=== PATIENT | male | born 1940 | race Caucasian/White ===

== ENCOUNTER 2020-12-20 11:48 | Emergency (ER) | payer MEDICARE, SELFPAY ==
--- NOTE | ~2020-12-20 | CT_ITS ---
EXAMINATION: CT abdomen pelvis wo con CLINICAL INFORMATION: Reason for Exam epigastric pain. gallstones? SBO? COMPARISON: No prior CT available for comparison. TECHNIQUE: Multidetector volumetric imaging was performed from the superior aspect of the liver through the pubic symphysis 100 mL of Omnipaque 300 injected Sagittal and coronal reformatted images were obtained on the technologist's workstation. This CT examination was performed using dose optimization techniques as appropriate, variously including the following: *Automated exposure control *Adjustment of mA and/or kV according to patient size (this includes techniques or standardized protocols for targeted exams where dose is matched to indication/reason for exam; i.e. extremities or head) *Use of iterative reconstruction technique DLP: 1343 mGy-cm FINDINGS: LOWER THORAX: There are emphysematous changes at lung bases, diffuse bronchiectasis and subpleural honeycombing suggesting interstitial pneumonitis, pulmonary fibrosis. HEPATOBILIARY: No focal hepatic lesions. No biliary ductal dilatation. GALLBLADDER: There is a large gallstone. SPLEEN: Spleen is normal in size. PANCREAS: No focal mass or ductal dilatation. STOMACH AND GASTROINTESTINAL TRACT: Stomach is dilated, fluid and contrast mixture in the lumen. Excess amount of stool in the colon suggesting constipation. Heavy sigmoid diverticulosis without evidence of acute diverticulitis. ADRENALS: No adrenal nodules. KIDNEYS/URETERS: No hydronephrosis, stones or solid mass lesions. URINARY BLADDER: Partially decompressed. PELVIC VISCERA: Unremarkable PERITONEUM: No free air or fluid. LYMPH NODES: No lymphadenopathy. VASCULAR:Abdominal aorta normal in size, no aneurysm found. BONES, ABDOMINAL WALL AND SOFT TISSUES: Age-appropriate changes of the spine and skeletal system, no destructive osteolytic or osteosclerotic bone lesion found CT/CT abdomen pelvis wo con IMPRESSION: 1. Stomach is markedly dilated filled with fluid, fluid and contrast. Uncertain etiology, difficult to evaluate due to lack of IV contrast and paucity of intraperitoneal fat, If patient remain symptomatic, consider correlation with follow-up upper GI study. Rule out gastric outflow obstruction. 2. Excess amount of stool in the colon especially cecum suggesting constipation. 3. Diverticulosis without evidence of acute diverticulitis.
[2020-12-20 12:00] VITALS: BP 127/81; PULSE 77; O2SAT 99
[2020-12-20 12:04] VITALS: BP 112/56; PULSE 80; RESP 18; TEMP 36.6; O2SAT 98; BMI 29.9
--- NOTE | 2020-12-20 12:16 | ECG_ITS ---
Test Reason : ABDOMINAL PAIN Blood Pressure : / mmHG Vent. Rate : 073 BPM Atrial Rate : 073 BPM P-R Int : 162 ms QRS Dur : 086 ms QT Int : 394 ms P-R-T Axes : 005 -22 -05 degrees QTc Int : 434 ms Normal sinus rhythm Normal ECG No previous ECGs available Referred By: Fortino Acevedo Electronically Signed By:KEITH THOMPSON
--- NOTE | 2020-12-20 12:39 | ED.ABDPAIN ---
HPI - Abdominal Pain General Chief Complaint: Abdominal Pain Stated Complaint: abd pain, n/v Time Seen by Provider: 12/20/20 12:16 Source: patient Mode of arrival: ambulatory Limitations: no limitations History of Present Illness HPI narrative: Patient presents to ED for epigastric pain described as acid burning sensation going up to the throat for the past 5 months but has been consistent for the past 2 weeks. Patient states nausea. Patient states no fever, chills, dysuria, hematuria, flank pain, or diarrhea. Patient had a normal bowel movement yesterday. Patient states history of stomach cancer and stomach ulcers. Patient states history of COPD and high blood pressure. Patient is oxygen dependent. Patient presently not receiving any treatment for stomach cancer. MD elicited complaint: abdominal pain Related Data Previous Rx's Medication Instructions Recorded famotidine 20 mg tablet (Pepcid) 20 mg PO BID #20 tab 12/20/20 Allergies Allergy/AdvReac Type Severity Reaction Status Date / Time No Known Allergies Allergy Verified 12/20/20 12:12 Review of Systems Review of Systems Yes all other systems are reviewed and are negative Constitutional: Reports as per HPI, Reports no additional constitutional complaints and Reports anorexia Eyes: Reports as per HPI and Reports no additional eye complaints Reports system reviewed and no additional complaints, except as documented and Reports as per HPI Cardiovascular: Reports as per HPI and Reports no additional cardiovascular complaints Respiratory: Reports as per HPI and Reports no additional respiratory complaints Gastrointestinal: Reports as per HPI, Reports no additional gastrointestinal complaints, Reports abdominal pain (Epigastric), Reports heartburn and Reports nausea Genitourinary: Reports no additional male genitourinary complaints and Reports as per HPI Reports system reviewed and no additional complaints, except as documented and Reports as per HPI Psychiatric: Reports no additional psychiatric complaints and Reports as per HPI Physical Exam Vital Signs: Vital Signs: Last Vital Signs Temp 97.9 F 12/20/20 13:00 Pulse 75 12/20/20 13:00 Resp 15 12/20/20 13:00 BP 104/60 12/20/20 13:00 Pulse Ox 98 12/20/20 12:04 Oxygen Flow Rate 1 12/20/20 12:04 Body Mass Index 29.9 Const: General: cooperative, healthy appearing, comfortable, no acute distress, well developed, alert, awake and Physically active Orientation/consciousness: patient oriented x3 HENMT: Head: Yes normal to inspection, Yes No palpable skull fracture present, Yes normocephalic and Yes atraumatic Eyes: General: appearance normal, both eyes and all related structures Neck: Neck: Yes normal visual inspection, Yes full ROM, Yes no lymphadenopathy, Yes no meningeal signs, Yes trachea midline, Yes supple and No tender Chest: Chest palpation & inspection: normal inspection of the chest and normal palpation of entire chest wall Resp: Effort & Inspection: normal respiratory effort and able to speak in complete sentences Auscultation: clear to auscultation bilaterally Cardio: Jugular venous distension: no JVD Heart sounds: S1 normal heart sound present and S2 normal heart sound present GI: Inspection: Yes normal to inspection and No abdominal wall ecchymosis Palpation (GI): Soft to palpation, not firm, nontender and no guarding : General: No CVA tenderness and Yes no CVA tenderness Back/Spine/Pelvis: Back: no CVA tenderness, No CVA tenderness and No back tenderness Skin: General skin exam: no rashes or lesions noted and elasticity normal Neuro: General: patient oriented x3, gait normal, tone normal and no meningeal signs Cranial nerves: Yes CN's II-XII intact bilaterally Extrem: General: Yes normal to inspection and Yes full ROM Psych: Appearance: grossly normal, well kempt and not disheveled Course Course Course Narrative: History physical exam indicate GERD will do cardiac evaluation GI cocktail and abdominal CT scan to rule out obstruction gallstones. Reevaluation(s) Reevaluation #1: EKG negatives for STEMI. Troponin after 2 weeks of acid burning epigastric pain came back negative. CT scan of abdomen negative for small bowel obstruction. CT scan of abdomen showed possible gastric outlet obstruction. Case discussed with surgeon Dr. Carrasco who states patient can be discharged. Patient passed p.o. challenge and is not having any vomiting. Patient will be referred to Gastroenterology as outpatient as recommended by Dr. Carrasco. Patient given magnesium citrate for constipation. UA negative for UTI. Time: 16:19 MDM - Abdominal Pain MDM Narrative Medical decision making narrative: GERD. Constipation. Gastric outlet obstruction. Lab Data Result diagrams: 12/20/20 12:53 12/20/20 12:53 Labs: Lab Results 12/20/20 12/20/20 12/20/20 Range/Units 12:53 12:53 12:53 WBC 8.7 (4.8-10.8) X10*3/uL RBC 3.42 L (4.60-5.80) X10*6/uL Hgb 9.8 L (14.0-18.0) g/dl Hct 30.7 L (42-52) % MCV 89.8 (80-98) fL MCH 28.7 (27.0-33.0) pg MCHC 31.9 (31.0-36.0) g/dl RDW 12.7 (11.0-16.0) % Plt Count 314 (160-400) X10*3/uL MPV 9.6 (9.4-12.4) fL Immature Gran % (Auto) 0.2 (0.0-0.4) % Neut % (Auto) 63.8 (45-73) % Lymph % (Auto) 16.2 L (20-40) % Crawford % (Auto) 10.1 (2-11) % Eos % (Auto) 9.2 H (0-4) % Baso % (Auto) 0.5 (0-2) % Lymph # (Auto) 1.4 (1.2-4.9) X10*3/uL Crawford # (Auto) 0.9 (0.1-1.2) X10*3/uL Eos # (Auto) 0.8 H (0.0-0.4) X10*3/uL Baso # (Auto) 0.0 (0.0-0.2) X10*3/uL Abs Immat Gran (auto) 0.02 (0.00-0.03) X10*3/uL Absolute Neuts (auto) 5.5 (2.0-8.3) X10*3/uL Absolute Nucleated RBC 0.000 (0.0-0.012) X10*3/uL Nucleated RBC % (auto) 0.0 (0.0-0.2) /100WBC PT (9.9-13.0) SEC INR (0.9-1.1) APTT (24.1-38.0) SEC Sodium 139 (135-145) mmol/L Potassium 4.9 (3.3-5.1) mmol/L Chloride 106 (96-108) mmol/L Carbon Dioxide 28 (22-29) mmol/L Anion Gap 10 L (12-20) BUN 20 H (9-16) mg/dL Creatinine 0.96 (0.5-1.4) mg/dL Estim Creat Clear Calc 58.3 Estimated GFR > 60 Random Glucose 70 (60-115) mg/dL Calcium 9.3 (8.4-10.2) mg/dL Total Bilirubin 0.2 (0.0-1.0) mg/dL Direct Bilirubin < 0.2 (0.0-0.5) mg/dL AST 26 (5-37) U/L ALT 29 (0-40) U/L Alkaline Phosphatase 82 (39-117) U/L Troponin I High Sens < 3.5 (<3.5-35.0) ng/L Total Protein 7.1 (6.5-8.0) g/dL Albumin 4.0 (3.5-5.0) g/dL Lipase 40 (8-78) U/L Urine Color Urine Appearance Urine pH (5.0-8.0) Ur Specific [place] (1.005-1.025) Urine Protein (NEG-TRACE) MG/DL Urine Glucose (UA) (NEG) MG/DL Urine Ketones (NEG) MG/DL Urine Blood (NEG) Urine Nitrite (NEG) Ur Leukocyte Esterase (NEG) 12/20/20 12/20/20 Range/Units 12:53 15:44 WBC (4.8-10.8) X10*3/uL RBC (4.60-5.80) X10*6/uL Hgb (14.0-18.0) g/dl Hct (42-52) % MCV (80-98) fL MCH (27.0-33.0) pg MCHC (31.0-36.0) g/dl RDW (11.0-16.0) % Plt Count (160-400) X10*3/uL MPV (9.4-12.4) fL Immature Gran % (Auto) (0.0-0.4) % Neut % (Auto) (45-73) % Lymph % (Auto) (20-40) % Crawford % (Auto) (2-11) % Eos % (Auto) (0-4) % Baso % (Auto) (0-2) % Lymph # (Auto) (1.2-4.9) X10*3/uL Crawford # (Auto) (0.1-1.2) X10*3/uL Eos # (Auto) (0.0-0.4) X10*3/uL Baso # (Auto) (0.0-0.2) X10*3/uL Abs Immat Gran (auto) (0.00-0.03) X10*3/uL Absolute Neuts (auto) (2.0-8.3) X10*3/uL Absolute Nucleated RBC (0.0-0.012) X10*3/uL Nucleated RBC % (auto) (0.0-0.2) /100WBC PT 11.4 (9.9-13.0) SEC INR 1.0 (0.9-1.1) APTT 34.6 (24.1-38.0) SEC Sodium (135-145) mmol/L Potassium (3.3-5.1) mmol/L Chloride (96-108) mmol/L Carbon Dioxide (22-29) mmol/L Anion Gap (12-20) BUN (9-16) mg/dL Creatinine (0.5-1.4) mg/dL Estim Creat Clear Calc Estimated GFR Random Glucose (60-115) mg/dL Calcium (8.4-10.2) mg/dL Total Bilirubin (0.0-1.0) mg/dL Direct Bilirubin (0.0-0.5) mg/dL AST (5-37) U/L ALT (0-40) U/L Alkaline Phosphatase (39-117) U/L Troponin I High Sens (<3.5-35.0) ng/L Total Protein (6.5-8.0) g/dL Albumin (3.5-5.0) g/dL Lipase (8-78) U/L Urine Color YELLOW Urine Appearance CLEAR Urine pH 6.0 (5.0-8.0) Ur Specific [place] 1.010 (1.005-1.025) Urine Protein NEG (NEG-TRACE) MG/DL Urine Glucose (UA) NEG (NEG) MG/DL Urine Ketones 5 (NEG) MG/DL Urine Blood NEG (NEG) Urine Nitrite NEG (NEG) Ur Leukocyte Esterase NEG (NEG) ECG Data Interpretation: Normal sinus rhythm. Normal EKG. Sickle is 73. Pr interval 162. QRS 86. QTC 434. Negative STEMI Discharge Plan Discharge Clinical Impression: Gastroesophageal reflux disease, Constipation, Gastric outlet obstruction Patient Disposition: Home, Self-Care Instructions: Constipation (ED), Gastroesophageal Reflux Disease (ED) Additional Instructions: Macias electrocardiograma y an?lisis de obdulia resultaron negativos para un ataque card?aco. Macias tomograf?a computarizada abdominal muestra ricco obstrucci?n de la salida g?strica. Macias tomograf?a computarizada tambi?n muestra estre?imiento. Es necesario realizar un seguimiento con gastroenter?logo samuel paciente ambulatorio. Regrese al servicio de urgencias inmediatamente si tiene v?mitos con obdulia, sangrado rectal, debilidad, mareos, dolor de pecho, dificultad para respirar, incapacidad para tolerar alimentos s?lidos / l?quidos, disuria, hematuria, dolor en el costado o cualquier otro s?ntoma preocupante. Prescriptions: New famotidine [Pepcid] 20 mg tablet 20 mg PO BID Qty: 20 RF: 0 Referrals: Adrian Quiles [Physician] - 2 days (Gastric outlet obstruction. GERD) Interventions: ED Discharge Assessment Last Done: 12/20/20 17:41 Discharge Date/Time: 12/20/20 17:42 Print Language: Guyanese [facility] Past Medical History Medical History (Updated 12/20/20 @ 16:22 by KAMALA Kinsey) COPD (chronic obstructive pulmonary disease) Depressed Diabetes Glaucoma HTN (hypertension) Stomach cancer Social History Social History Advance Directives: Yes Advance Directives on File: Yes Advance Directives Date on File: 12/20/20
[2020-12-20 12:58] LABS: MANUAL DIFF FLAG NO
[2020-12-20 13:00] VITALS: BP 104/60; PULSE 75; RESP 15; TEMP 36.6
[2020-12-20 13:07] LABS: Basophils Percent Auto 0.5 % (0-2); Eosinophils Absolute Auto 0.8 X10*3/uL (0.0-0.4); Eosinophils Percent Auto 9.2 % (0-4); Hematocrit 30.7 % (42-52); Hemoglobin 9.8 g/dl (14.0-18.0); Imm Gran Abs Auto 0.02 X10*3/uL (0.00-0.03); Imm Gran Pct Auto 0.2 % (0.0-0.4); Lymphocytes Absolute Auto 1.4 X10*3/uL (1.2-4.9); Lymphocytes Percent Auto 16.2 % (20-40); Mean Corpuscular HGB Conc 31.9 g/dl (31.0-36.0); Mean Corpuscular Hemoglobin 28.7 pg (27.0-33.0); Mean Corpuscular Volume 89.8 fL (80-98); Mean Platelet Volume 9.6 fL (9.4-12.4); Monocytes Absolute Auto 0.9 X10*3/uL (0.1-1.2); Monocytes Percent Auto 10.1 % (2-11); Neutrophils Absolute Auto 5.5 X10*3/uL (2.0-8.3); Neutrophils Percent Auto 63.8 % (45-73); Platelet Count 314 X10*3/uL (160-400); Red Blood Count 3.42 X10*6/uL (4.60-5.80); Red Cell Distribution Width 12.7 % (11.0-16.0); White Blood Count 8.7 X10*3/uL (4.8-10.8)
[2020-12-20] MEDS: PHENobarb/Hyoscy/Atropine/Scop 10 ML ELIXIR PO (13:12)
[2020-12-20] MEDS: Famotidine 20 MG TABLET PO (13:13)
[2020-12-20] MEDS: Lidocaine HCl Viscous 2 % 15 ML SOLUTION MUCOUS MEM (13:13)
[2020-12-20 13:14] LABS: Prothrombin Time 11.4 SEC (9.9-13.0)
[2020-12-20] MEDS: Magnesium Hydrox/Alum Hydrox 30 ML ORAL.SUSP PO (13:14)
[2020-12-20] MEDS: Sucralfate Oral Suspension 1 GM/10 ML ORAL.SUSP PO (13:14)
[2020-12-20 13:16] LABS: Partial Thromboplastin Time 34.6 SEC (24.1-38.0)
[2020-12-20 13:23] LABS: Troponin-I High Sensitivity < 3.5 ng/L (<3.5-35.0)
[2020-12-20 13:29] LABS: Alanine Aminotransferase 29 U/L (0-40); Alkaline Phosphatase 82 U/L (39-117); Anion Gap 10 (12-20); Aspartate Amino Transferase 26 U/L (5-37); Bilirubin Direct < 0.2 mg/dL (0.0-0.5); Bilirubin Total 0.2 mg/dL (0.0-1.0); Blood Urea Nitrogen 20 mg/dL (9-16); Calcium 9.3 mg/dL (8.4-10.2); Carbon Dioxide 28 mmol/L (22-29); Chloride 106 mmol/L (96-108); Creatinine Clr Calc Pharmacy 58.3; Estimated Glomerular Filt Rate > 60; Glucose Random 70 mg/dL (60-115); Lipase 40 U/L (8-78); Potassium 4.9 mmol/L (3.3-5.1); Sodium 139 mmol/L (135-145); Total Protein 7.1 g/dL (6.5-8.0)
[2020-12-20 15:50] LABS: Glucose Urine UA NEG (NEG); Leukocyte Esterase Urine NEG (NEG); Nitrite Urine NEG (NEG); Urine Blood NEG (NEG); Urine Ketones 5 MG/DL (NEG); Urine Protein NEG (NEG-TRACE)
[2020-12-20 15:54] LABS: Appearance Urine CLEAR; Color Urine YELLOW
== END 2020-12-20 17:42 | disposition home or self-care (01) ==
PROVIDERS: Physician Assistant; Emergency Provider Emergency Medicine; PCP Internal Medicine
DX: K21.9 Gastro-esophageal reflux disease without esophagitis (principal); K31.1 Adult hypertrophic pyloric stenosis; K59.00 Constipation, unspecified; R10.13 Epigastric pain; Z79.899 Other long term (current) drug therapy
CPT/HCPCS: 36415; 74176; 80053; 81003; 82248; 83690; 84484; 85025; 85610; 85730; 93005; 99284

== ENCOUNTER 2020-12-31 10:03 | Emergency (ER) | payer MEDICARE, SELFPAY ==
[2020-12-31 10:14] VITALS: BP 120/79; BP 135/68; PULSE 90; PULSE 91; RESP 18; TEMP 37.1; O2SAT 100; O2SAT 97; BMI 25.8
--- NOTE | 2020-12-31 10:24 | ECG_ITS ---
Test Reason : AB PAIN Blood Pressure : / mmHG Vent. Rate : 081 BPM Atrial Rate : 081 BPM P-R Int : 166 ms QRS Dur : 094 ms QT Int : 392 ms P-R-T Axes : 059 -07 016 degrees QTc Int : 455 ms Normal sinus rhythm Normal ECG When compared with ECG of 20-DEC-2020 12:58, Nonspecific T wave abnormality has replaced inverted T waves in Inferior leads Referred By: Renae Diane Electronically Signed By:KEITH THOMPSON
[2020-12-31] MEDS: 0.9 % Sodium Chloride 1,000 ML 999 ML IVCONT (10:28)
[2020-12-31 10:42] LABS: MANUAL DIFF FLAG NO
[2020-12-31 10:46] LABS: Basophils Percent Auto 0.4 % (0-2); Eosinophils Absolute Auto 0.6 X10*3/uL (0.0-0.4); Eosinophils Percent Auto 7.2 % (0-4); Hematocrit 30.2 % (42-52); Hemoglobin 9.6 g/dl (14.0-18.0); Imm Gran Abs Auto 0.04 X10*3/uL (0.00-0.03); Imm Gran Pct Auto 0.4 % (0.0-0.4); Lymphocytes Absolute Auto 1.6 X10*3/uL (1.2-4.9); Lymphocytes Percent Auto 17.7 % (20-40); Mean Corpuscular HGB Conc 31.8 g/dl (31.0-36.0); Mean Corpuscular Hemoglobin 28.2 pg (27.0-33.0); Mean Corpuscular Volume 88.6 fL (80-98); Mean Platelet Volume 9.5 fL (9.4-12.4); Monocytes Absolute Auto 1.1 X10*3/uL (0.1-1.2); Monocytes Percent Auto 12.7 % (2-11); Neutrophils Absolute Auto 5.5 X10*3/uL (2.0-8.3); Neutrophils Percent Auto 61.6 % (45-73); Platelet Count 347 X10*3/uL (160-400); Red Blood Count 3.41 X10*6/uL (4.60-5.80); Red Cell Distribution Width 13.2 % (11.0-16.0); White Blood Count 8.9 X10*3/uL (4.8-10.8)
--- NOTE | 2020-12-31 10:54 | ED_ITS ---
HPI - Abdominal Pain General Chief Complaint: Abdominal Pain Stated Complaint: DIFFICULTY BREATHING/ GI ISSUE Time Seen by Provider: 12/31/20 10:08 Source: patient and EMS Mode of arrival: EMS Limitations: no limitations History of Present Illness HPI narrative: Patient comes to the emergency room complaining of vomiting and diarrhea. Patient states that he is on multiple medications, which give some a lot of burning sensation in his abdomen. Patient is coming from a prison. Patient has been refusing his medications because of the above-mentioned side effects. Patient states that his diarrhea is now black, states they have been giving him Pepto-Bismol. Patient states that he has history low buttock ulcer in the past. Patient denies fever or chills Related Data Previous Rx's Medication Instructions Recorded famotidine 20 mg tablet (Pepcid) 20 mg PO BID #20 tab 12/20/20 ondansetron HCl 4 mg tablet 4 mg PO Q6H PRN #14 tab 12/31/20 (Zofran) Allergies Allergy/AdvReac Type Severity Reaction Status Date / Time No Known Allergies Allergy Verified 12/20/20 12:12 Review of Systems Review of Systems Constitutional : No Weight loss, No Fever, No Chills, No Night Sweats, No Fatigue, No Malaise ENT/Mouth : No Hearing loss, No Ear Pain, No Nasal Congestion, No Sinus Pain, No Hoarseness, No sore throat, No Rhinorrhea, No Swallowing Difficulty Eyes: No Eye Pain, No Swelling, No Redness, No Foreign Body, No Discharge, No Vision Changes Cardiovascular : No Chest Pain, No SOB, No Dyspnea on Exertion, No Orthopnea, No Edema, No Palpitations Respiratory : No Cough, No Sputum, No Wheezing, No Smoke Exposure, No Dyspnea Gastrointestinal complaining of nausea, vomiting, diarrhea, constipation as well, black stool Genitourinary : no irregular bleeding, No Dysuria, No Urinary Frequency, No Hematuria, No Urinary Incontinence, No Urgency, No Flank Pain, No Urinary Flow Changes, No Hesitancy Musculoskeletal : No joint pain, No Myalgias, No Joint Swelling Skin : No Skin Lesions, No rash Neuro : No Weakness, No Numbness, No Paresthesias, No Loss of Consciousness, No Dizziness, No Headache Psych : No Anxiety/Panic, No Depression, No SI/HI/AH/VH, No Social Issues, Heme/Lymph: No Bruising, No Bleeding,No Lymphadenopathy Endocrine : No Polyuria, No Polydipsia, No Temperature Intolerance Physical Exam Vital Signs: Vital Signs: Last Vital Signs Temp 98.2 F 12/31/20 16:00 Pulse 73 12/31/20 16:00 Resp 16 12/31/20 16:00 BP 130/64 12/31/20 16:00 Pulse Ox 100 12/31/20 16:00 Body Mass Index 25.8 Const: Other: Appearance: Alert. Oriented X3. No acute distress. Eyes: Pupils equal, round and reactive to light. ENT: Pharynx normal. Neck: Normal inspection. Neck supple. No lymph nodes noted. No crepitus CVS: Normal heart rate and rhythm. Pulses normal. Normal S1 and S2 Respiratory: No respiratory distress. On home 2 L, bilateral mild wheezing Abdomen: Soft and nontender. No rigidity. No distention. Digital rectal exam shows black stool Skin: Skin warm and dry. Normal skin color. Normal skin turgor. Extremities: No lower extremity edema. No Lacerations. No Rash Neuro: Oriented X 3. No motor deficit. No sensory deficit. Moving all extermities. No slurred speech. Course Course Course Narrative: Patient has not vomited or had any diarrhea in the emergency room. Patient is likely having side effects from his medication. Patient ready for discharge. Patient was giving a dose of Zofran to hopefully help him with his symptoms prior to ingestion. MDM - Abdominal Pain Lab Data Result diagrams: 12/31/20 10:26 12/31/20 10:26 Labs: Lab Results 12/31/20 12/31/20 12/31/20 Range/Units 10:26 10:26 10:26 WBC 8.9 (4.8-10.8) X10*3/uL RBC 3.41 L (4.60-5.80) X10*6/uL Hgb 9.6 L (14.0-18.0) g/dl Hct 30.2 L (42-52) % MCV 88.6 (80-98) fL MCH 28.2 (27.0-33.0) pg MCHC 31.8 (31.0-36.0) g/dl RDW 13.2 (11.0-16.0) % Plt Count 347 (160-400) X10*3/uL MPV 9.5 (9.4-12.4) fL Immature Gran % (Auto) 0.4 (0.0-0.4) % Neut % (Auto) 61.6 (45-73) % Lymph % (Auto) 17.7 L (20-40) % Shelby % (Auto) 12.7 H (2-11) % Eos % (Auto) 7.2 H (0-4) % Baso % (Auto) 0.4 (0-2) % Lymph # (Auto) 1.6 (1.2-4.9) X10*3/uL Shelby # (Auto) 1.1 (0.1-1.2) X10*3/uL Eos # (Auto) 0.6 H (0.0-0.4) X10*3/uL Baso # (Auto) 0.0 (0.0-0.2) X10*3/uL Abs Immat Gran (auto) 0.04 H (0.00-0.03) X10*3/uL Absolute Neuts (auto) 5.5 (2.0-8.3) X10*3/uL Absolute Nucleated RBC 0.000 (0.0-0.012) X10*3/uL Nucleated RBC % (auto) 0.0 (0.0-0.2) /100WBC PT 11.9 (9.9-13.0) SEC INR 1.0 (0.9-1.1) Sodium 137 (135-145) mmol/L Potassium 4.6 (3.3-5.1) mmol/L Chloride 101 (96-108) mmol/L Carbon Dioxide 28 (22-29) mmol/L Anion Gap 13 (12-20) BUN 30 H (9-16) mg/dL Creatinine 1.07 (0.5-1.4) mg/dL Estim Creat Clear Calc 48.0 Estimated GFR > 60 Random Glucose 139 H D (60-115) mg/dL Calcium 9.0 (8.4-10.2) mg/dL Total Bilirubin 0.2 (0.0-1.0) mg/dL Direct Bilirubin < 0.2 (0.0-0.5) mg/dL AST 18 (5-37) U/L ALT 21 (0-40) U/L Alkaline Phosphatase 71 (39-117) U/L Total Protein 6.9 (6.5-8.0) g/dL Albumin 4.0 (3.5-5.0) g/dL Lipase (8-78) U/L Urine Color Urine Appearance Urine pH (5.0-8.0) Ur Specific [place] (1.005-1.025) Urine Protein (NEG-TRACE) MG/DL Urine Glucose (UA) (NEG) MG/DL Urine Ketones (NEG) MG/DL Urine Blood (NEG) Urine Nitrite (NEG) Ur Leukocyte Esterase (NEG) Urine RBC (0) /HPF Urine WBC (0-4) /HPF Ur Squamous Epith Cells /LPF Amorphous Sediment /LPF Urine Bacteria /LPF Stool Occult Blood (NEGATIVE) 12/31/20 12/31/20 12/31/20 Range/Units 10:26 12:04 12:04 WBC (4.8-10.8) X10*3/uL RBC (4.60-5.80) X10*6/uL Hgb (14.0-18.0) g/dl Hct (42-52) % MCV (80-98) fL MCH (27.0-33.0) pg MCHC (31.0-36.0) g/dl RDW (11.0-16.0) % Plt Count (160-400) X10*3/uL MPV (9.4-12.4) fL Immature Gran % (Auto) (0.0-0.4) % Neut % (Auto) (45-73) % Lymph % (Auto) (20-40) % [place] % (Auto) (2-11) % Eos % (Auto) (0-4) % Baso % (Auto) (0-2) % Lymph # (Auto) (1.2-4.9) X10*3/uL [place] # (Auto) (0.1-1.2) X10*3/uL Eos # (Auto) (0.0-0.4) X10*3/uL Baso # (Auto) (0.0-0.2) X10*3/uL Abs Immat Gran (auto) (0.00-0.03) X10*3/uL Absolute Neuts (auto) (2.0-8.3) X10*3/uL Absolute Nucleated RBC (0.0-0.012) X10*3/uL Nucleated RBC % (auto) (0.0-0.2) /100WBC PT (9.9-13.0) SEC INR (0.9-1.1) Sodium (135-145) mmol/L Potassium (3.3-5.1) mmol/L Chloride (96-108) mmol/L Carbon Dioxide (22-29) mmol/L Anion Gap (12-20) BUN (9-16) mg/dL Creatinine (0.5-1.4) mg/dL Estim Creat Clear Calc Estimated GFR Random Glucose (60-115) mg/dL Calcium (8.4-10.2) mg/dL Total Bilirubin (0.0-1.0) mg/dL Direct Bilirubin (0.0-0.5) mg/dL AST (5-37) U/L ALT (0-40) U/L Alkaline Phosphatase (39-117) U/L Total Protein (6.5-8.0) g/dL Albumin (3.5-5.0) g/dL Lipase 33 (8-78) U/L Urine Color YELLOW Urine Appearance CLOUDY Urine pH 8.0 (5.0-8.0) Ur Specific [place] 1.015 (1.005-1.025) Urine Protein 1+ H (NEG-TRACE) MG/DL Urine Glucose (UA) NEG (NEG) MG/DL Urine Ketones NEG (NEG) MG/DL Urine Blood NEG (NEG) Urine Nitrite NEG (NEG) Ur Leukocyte Esterase NEG (NEG) Urine RBC 0-2 (0) /HPF Urine WBC 1-4 (0-4) /HPF Ur Squamous Epith Cells 1+ /LPF Amorphous Sediment 3+ /LPF Urine Bacteria 1+ /LPF Stool Occult Blood NEGATIVE (NEGATIVE) Discharge Plan Discharge Clinical Impression: Drug intolerance Patient Disposition: Home, Self-Care Additional Instructions: Please follow-up with your primary care physician tomorrow. If you have any worsening or new symptoms, please return to the emergency room or call 911 Prescriptions: New ondansetron HCl [Zofran] 4 mg tablet 4 mg PO Q6H PRN (Reason: nausea and vomiting) Qty: 14 RF: 0 No Action famotidine [Pepcid] 20 mg tablet 20 mg PO BID Qty: 20 RF: 0 PMFSH Past Medical History Medical History (Updated 12/31/20 @ 16:23 by Renae Diane MD) COPD (chronic obstructive pulmonary disease) Depressed Diabetes Glaucoma HTN (hypertension) Peptic ulcer Stomach cancer Social History Social History Advance Directives: Yes Advance Directives on File: Yes Advance Directives Date on File: 12/20/20
[2020-12-31 10:59] LABS: Prothrombin Time 11.9 SEC (9.9-13.0)
[2020-12-31 11:01] LABS: Lipase 33 U/L (8-78)
[2020-12-31 11:02] LABS: Alanine Aminotransferase 21 U/L (0-40); Alkaline Phosphatase 71 U/L (39-117); Anion Gap 13 (12-20); Aspartate Amino Transferase 18 U/L (5-37); Bilirubin Direct < 0.2 mg/dL (0.0-0.5); Bilirubin Total 0.2 mg/dL (0.0-1.0); Blood Urea Nitrogen 30 mg/dL (9-16); Carbon Dioxide 28 mmol/L (22-29); Chloride 101 mmol/L (96-108); Estimated Glomerular Filt Rate > 60; Glucose Random 139 mg/dL (60-115); Potassium 4.6 mmol/L (3.3-5.1); Sodium 137 mmol/L (135-145); Total Protein 6.9 g/dL (6.5-8.0)
[2020-12-31 12:12] LABS: Glucose Urine UA NEG (NEG); Leukocyte Esterase Urine NEG (NEG); Nitrite Urine NEG (NEG); OBS Int Ctl Valid YES; OBS1 NEGATIVE (NEGATIVE); Specific Gravity - Urine 1.015 (1.005-1.025); UACC Culture Trigger NO; Urine Blood NEG (NEG); Urine Ketones NEG (NEG); Urine Protein 1+ MG/DL (NEG-TRACE)
[2020-12-31 12:13] LABS: Appearance Urine CLOUDY; Color Urine YELLOW
[2020-12-31 12:21] LABS: Amorphous Sediment Urine 3+ /LPF; Bacteria Urine 1+ /LPF; RBC Urine 0-2 /HPF (0); Squamous Epithelial Cell Urine 1+ /LPF
[2020-12-31 13:26] VITALS: BP 119/58; PULSE 78; RESP 19; O2SAT 99
[2020-12-31 16:00] VITALS: BP 130/64; PULSE 73; RESP 16; TEMP 36.8; O2SAT 100
== END 2020-12-31 18:42 | disposition home or self-care (01) ==
PROVIDERS: Emergency Provider Emergency Medicine; PCP Internal Medicine
DX: R06.02 Shortness of breath (principal); I10 Essential (primary) hypertension; R11.10 Vomiting, unspecified; R19.7 Diarrhea, unspecified; Z79.899 Other long term (current) drug therapy
CPT/HCPCS: 36415; 80048; 80076; 81001; 82272; 83690; 85025; 85610; 93005; 96360; 99284

== ENCOUNTER 2021-01-11 03:38 | Emergency (ER) | payer MEDICARE, SELFPAY ==
--- NOTE | ~2021-01-11 | XR_ITS ---
EXAMINATION: XR CHEST CLINICAL INFORMATION: Cough COMPARISON: None TECHNIQUE: 2 views of the chest were obtained. FINDINGS: Severe emphysema. Diffuse subpleural reticulation, more pronounced bilaterally. Streaky opacities present within the middle lobe and lingula. No pleural effusion or pneumothorax. Normal heart size. Aorta is atherosclerotic. XR/XR chest 2V IMPRESSION: Severe emphysema and/or pulmonary fibrosis. Streaky opacities middle lobe and lingula may represent atelectasis or treated.
[2021-01-11 04:04] VITALS: BP 116/57; PULSE 99; RESP 18; TEMP 37; O2SAT 96; BMI 22.6
[2021-01-11 05:53] LABS: Basophils Percent Auto 0.4 % (0-2); Eosinophils Absolute Auto 0.7 X10*3/uL (0.0-0.4); Eosinophils Percent Auto 7.4 % (0-4); Hematocrit 26.5 % (42-52); Hemoglobin 8.5 g/dl (14.0-18.0); Imm Gran Abs Auto 0.04 X10*3/uL (0.00-0.03); Imm Gran Pct Auto 0.4 % (0.0-0.4); Lymphocytes Absolute Auto 1.6 X10*3/uL (1.2-4.9); Lymphocytes Percent Auto 17.2 % (20-40); MANUAL DIFF FLAG NO; Mean Corpuscular HGB Conc 32.1 g/dl (31.0-36.0); Mean Corpuscular Volume 87.2 fL (80-98); Mean Platelet Volume 9.5 fL (9.4-12.4); Monocytes Percent Auto 11.2 % (2-11); Neutrophils Absolute Auto 5.9 X10*3/uL (2.0-8.3); Neutrophils Percent Auto 63.4 % (45-73); Platelet Count 328 X10*3/uL (160-400); Red Blood Count 3.04 X10*6/uL (4.60-5.80); Red Cell Distribution Width 12.9 % (11.0-16.0); White Blood Count 9.3 X10*3/uL (4.8-10.8)
[2021-01-11 06:27] LABS: Alanine Aminotransferase 17 U/L (0-40); Albumin Level 3.8 g/dL (3.5-5.0); Alkaline Phosphatase 67 U/L (39-117); Anion Gap 10 (12-20); Aspartate Amino Transferase 18 U/L (5-37); Bilirubin Total < 0.2 mg/dL (0.0-1.0); Blood Urea Nitrogen 23 mg/dL (9-16); Calcium 9.1 mg/dL (8.4-10.2); Carbon Dioxide 27 mmol/L (22-29); Chloride 106 mmol/L (96-108); Creatinine Clr Calc Pharmacy 50.2; Estimated Glomerular Filt Rate > 60; Glucose Random 109 mg/dL (60-115); Potassium 5.1 mmol/L (3.3-5.1); Sodium 138 mmol/L (135-145); Total Protein 6.6 g/dL (6.5-8.0)
--- NOTE | 2021-01-11 07:21 | ED.ANXIETY ---
HPI - Anxiety General Chief Complaint: Anxiety Stated Complaint: RIGHT HIP PAIN/ANXIETY FROM SNF Time Seen by Provider: 01/11/21 05:26 Source: patient and deaf interpreter Mode of arrival: EMS History of Present Illness HPI narrative: 80-year-old male who is brought in via EMS from [facility] where he is been for 4 months. Patient reports increased anxiety and depression due to lack of activity. In addition, patient reports history of chronic pain and that ?my pain medication was taken away?. Patient states he has then refused his schedule medication and states that he does not feel that they are working the way that they should. Related Data Previous Rx's Medication Instructions Recorded famotidine 20 mg tablet (Pepcid) 20 mg PO BID #20 tab 12/20/20 ondansetron HCl 4 mg tablet 4 mg PO Q6H PRN #14 tab 12/31/20 (Zofran) Allergies Allergy/AdvReac Type Severity Reaction Status Date / Time No Known Allergies Allergy Verified 01/11/21 04:03 Review of Systems Review of Systems: Pertinent positives and negatives as stated in HPI 10 point review of systems is otherwise negative. PMFSH Past Medical History Source: nursing notes reviewed Medical History COPD (chronic obstructive pulmonary disease) Depressed Diabetes Glaucoma HTN (hypertension) Peptic ulcer Stomach cancer Social History Social History Advance Directives: Yes Advance Directives on File: Yes Advance Directives Date on File: 12/20/20 Physical Exam Vital Signs: Vital Signs: Last Vital Signs Temp 98.6 F 01/11/21 04:04 Pulse 99 01/11/21 04:04 Resp 18 01/11/21 04:04 BP 116/57 L 01/11/21 04:04 Pulse Ox 96 01/11/21 04:04 Oxygen Flow Rate 3 01/11/21 04:04 Body Mass Index 22.6 VITAL SIGNS: Reviewed. GENERAL: Well developed, well nourished, in no acute distress. HEAD: Normocephalic/atraumatic EYES: PERRLA, EOMI OROPHARYNX: no oral lesions noted, posterior pharynx clear LUNGS: Normal breath sounds. No adventitious sounds or accessory muscle use. SpO2<96> nasal cannula 2L CARDIOVASCULAR: Regular rate and rhythm without noted murmurs, no JVD or lower extremity edema. ABDOMEN: Soft, non-tender, non-distended with bowel sounds. MUSCULOSKELETAL: No tenderness, deformities, or effusions noted on gross inspection. EXTREMITIES: No cyanosis, clubbing or edema. SKIN: Inspection of the skin reveals no rashes, ulcerations, jaundice, pallor, or petechiae. NEUROLOGIC: Alert and oriented x 4. Strength and sensation to light touch were grossly intact x 4. Course Course Course Narrative: 80-year-old male with history and clinical presentation suggestive of mild anxiety and requesting pain medication for his chronic pain. Patient did not have any twitching or abnormal movements while here in the emergency room. Review of all investigations is otherwise negative for acute findings and patient was discharged back to the facility in stable condition with instructions that he should resume his prescribed medications and follow up with his primary care provider. MDM - Anxiety Lab Data Result diagrams: 01/11/21 05:47 01/11/21 05:47 Labs: Lab Results 01/11/21 01/11/21 Range/Units 05:47 05:47 WBC 9.3 (4.8-10.8) X10*3/uL RBC 3.04 L (4.60-5.80) X10*6/uL Hgb 8.5 L (14.0-18.0) g/dl Hct 26.5 L (42-52) % MCV 87.2 (80-98) fL MCH 28.0 (27.0-33.0) pg MCHC 32.1 (31.0-36.0) g/dl RDW 12.9 (11.0-16.0) % Plt Count 328 (160-400) X10*3/uL MPV 9.5 (9.4-12.4) fL Immature Gran % (Auto) 0.4 (0.0-0.4) % Neut % (Auto) 63.4 (45-73) % Lymph % (Auto) 17.2 L (20-40) % [place] % (Auto) 11.2 H (2-11) % Eos % (Auto) 7.4 H (0-4) % Baso % (Auto) 0.4 (0-2) % Lymph # (Auto) 1.6 (1.2-4.9) X10*3/uL [place] # (Auto) 1.0 (0.1-1.2) X10*3/uL Eos # (Auto) 0.7 H (0.0-0.4) X10*3/uL Baso # (Auto) 0.0 (0.0-0.2) X10*3/uL Abs Immat Gran (auto) 0.04 H (0.00-0.03) X10*3/uL Absolute Neuts (auto) 5.9 (2.0-8.3) X10*3/uL Absolute Nucleated RBC 0.000 (0.0-0.012) X10*3/uL Nucleated RBC % (auto) 0.0 (0.0-0.2) /100WBC Sodium 138 (135-145) mmol/L Potassium 5.1 (3.3-5.1) mmol/L Chloride 106 (96-108) mmol/L Carbon Dioxide 27 (22-29) mmol/L Anion Gap 10 L (12-20) BUN 23 H (9-16) mg/dL Creatinine 1.02 (0.5-1.4) mg/dL Estim Creat Clear Calc 50.2 Estimated GFR > 60 Random Glucose 109 (60-115) mg/dL Calcium 9.1 (8.4-10.2) mg/dL Total Bilirubin < 0.2 (0.0-1.0) mg/dL AST 18 (5-37) U/L ALT 17 (0-40) U/L Alkaline Phosphatase 67 (39-117) U/L Total Protein 6.6 (6.5-8.0) g/dL Albumin 3.8 (3.5-5.0) g/dL Discharge Plan Discharge Clinical Impression: Acute anxiety Patient Disposition: Home, Self-Care Instructions: Anxiety (ED) Additional Instructions: 1. Resume all home medications as prescribed. 2. Follow-up with your primary care provider the next 1-2 days for re-evaluation. Return to the ER for acute worsening of your symptoms. Prescriptions: No Action ondansetron HCl [Zofran] 4 mg tablet 4 mg PO Q6H PRN (Reason: nausea and vomiting) Qty: 14 RF: 0 famotidine [Pepcid] 20 mg tablet 20 mg PO BID Qty: 20 RF: 0 Referrals: Physician,Unknown [Primary Care Provider] - 2 days Print Language: Macanese
== END 2021-01-11 09:36 | disposition home or self-care (01) ==
PROVIDERS: Emergency Provider Student in an Organized Health Care Education/Training Program
DX: F41.1 Generalized anxiety disorder (principal); F43.0 Acute stress reaction; Z79.899 Other long term (current) drug therapy
CPT/HCPCS: 36415; 71046; 80053; 85025; 99283

== ENCOUNTER 2021-03-02 12:30 | Inpatient (IN) | payer MEDICARE, SELFPAY ==
[2021-02-26 08:55] VITALS: BMI 21.9
--- NOTE | 2021-03-01 10:15 | HO.ANESPROP2 ---
Documented by User: Sravanthi Woodward NP 03/01/21 10:21 HPI - Anesthesia Eval Consult details Narrative: 80yo M for Upper Endoscopy O2 @ 3L Resides at [facility] Past Medical History Medical History (Updated 02/26/21 @ 08:44 by Mary Jordan RN) COPD (chronic obstructive pulmonary disease) Depressed Diabetes Elevated cholesterol GERD (gastroesophageal reflux disease) Glaucoma History of ETOH abuse HTN (hypertension) Oxygen dependent Peptic ulcer [facility]ides in [facility] facility Stomach cancer Surgical History Surgical History (Updated 02/23/21 @ 15:46 by Mary Jordan RN) Surgical history unknown Social History Social History Household Members Other:: resides in [facility] Housing Other:: [facility]) Are you a primary urgent care physician assistant to a significant other at home: No Do you presently have visiting nurse or other home services: No Patient Tobacco Use Status: Tobacco use Unknown Use of substances other than those prescribed or required for medical reasons: No Have you been hit, kicked, punched, or otherwise hurt by someone within the past year? If so, by whom?: No Are you DNR?: No Advance Directives: Yes Advance Directives Information Provided: Yes Advance Directives on File: Yes Advance Directives Date on File: 09/04/20 Recently lost weight without trying: No Eating poorly because of decreased appetite: No Nutrition Risks: Surgical patient >75years Meds Allergies Allergy/AdvReac Type Severity Reaction Status Date / Time cinnamon Allergy Angioedema Verified 03/02/21 09:43 Home Medications Medication Instructions Recorded Confirmed Last Taken Type bisacodyl 5 mg tablet,delayed 5 mg PO QAM 02/26/21 02/26/21 Unknown History release (Dulcolax (bisacodyl)) brimonidine 0.2 % eye drops 1 drp OPHTHALMIC (EYE) TID 02/26/21 02/26/21 Unknown History cetirizine 10 mg tablet 10 mg PO QAM 02/26/21 02/26/21 Unknown History dorzolamide 2 % eye drops 1 drp OPHTHALMIC (EYE) TID 02/26/21 02/26/21 Unknown History ergocalciferol (vitamin D2) 1,250 1,250 mcg PO QMONTH 02/26/21 02/26/21 Unknown History mcg (50,000 unit) capsule (Vitamin D2) ferrous sulfate 325 mg (65 mg 325 mg PO BID 02/26/21 02/26/21 Unknown History iron) tablet fluticasone 500 mcg-salmeterol 50 1 inh INHALATION BID 02/26/21 02/26/21 Unknown History mcg/dose blistr powdr for inhalation (Wixela Inhub) lactulose 10 gram/15 mL oral 30 ml PO TID 02/26/21 02/26/21 Unknown History solution latanoprost 0.005 % eye drops 1 drp OPHTHALMIC (EYE) QPM 02/26/21 02/26/21 Unknown History (Xalatan) pantoprazole 40 mg tablet,delayed 40 mg PO BID 02/26/21 02/26/21 Unknown History release polyethylene glycol 3350 17 gram 17 g PO QAM 02/26/21 02/26/21 Unknown History oral powder packet (Miralax) sertraline 50 mg tablet 50 mg PO QAM 02/26/21 02/26/21 Unknown History trazodone 50 mg tablet 150 mg PO BEDTIME 02/26/21 02/26/21 Unknown History umeclidinium 62.5 mcg/actuation 1 inh INHALATION QAM 02/26/21 02/26/21 Unknown History blister powder for inhalation (Incruse Ellipta) Exam Exam Date and Time: March 01, 2021 1015 Height,Weight and Vital Signs: Height 5 ft 6 in Weight 61.689 kg Pertinent Lab Results Pertinent Lab Results: Laboratory Tests 01/11/21 01/11/21 05:47 05:47 WBC 9.3 Hgb 8.5 L Hct 26.5 L Plt Count 328 Sodium 138 Potassium 5.1 Chloride 106 Carbon Dioxide 27 BUN 23 H Creatinine 1.02 Narrative Narrative: EKG 12/2020 Vent. Rate : 081 BPM ? ? Atrial Rate : 081 BPM ?? P-R Int : 166 ms? QRS Dur : 094 ms ? ? QT Int : 392 ms ? ? ? P-R-T Axes : 059 -07 016 degrees ?? QTc Int : 455 ms ? Normal sinus rhythm Normal ECG When compared with ECG of 20-DEC-2020 12:58, Nonspecific T wave abnormality has replaced inverted T waves in Inferior leads Assessment and Plan Assessment Anesthesia Assessment: Chart Reviewed Documented by User: Promise Duarte MD 03/02/21 10:33 PMFSH Past Medical History Medical History (Updated 02/26/21 @ 08:44 by Mary Jordan, LACEY) COPD (chronic obstructive pulmonary disease) Depressed Diabetes Elevated cholesterol GERD (gastroesophageal reflux disease) Glaucoma History of ETOH abuse HTN (hypertension) Oxygen dependent Peptic ulcer [facility]ides in [facility] facility Stomach cancer Family History Family history of problems with anesthesia: No Surgical History Surgical History (Updated 02/23/21 @ 15:46 by Mary Jordan, LACEY) Surgical history unknown History of Problems with Anesthesia: No Social History Social History Household Members Other:: resides in [facility] Housing Other:: [facility]) Are you a primary urgent care physician assistant to a significant other at home: No Do you presently have visiting nurse or other home services: No Patient Tobacco Use Status: Tobacco use Unknown Use of substances other than those prescribed or required for medical reasons: No Have you been hit, kicked, punched, or otherwise hurt by someone within the past year? If so, by whom?: No Are you DNR?: No Advance Directives: Yes Advance Directives Information Provided: Yes Advance Directives on File: Yes Advance Directives Date on File: 09/04/20 Recently lost weight without trying: No Eating poorly because of decreased appetite: No Nutrition Risks: Surgical patient >75years Meds Allergies Allergy/AdvReac Type Severity Reaction Status Date / Time cinnamon Allergy Angioedema Verified 03/02/21 09:43 Home Medications Medication Instructions Recorded Confirmed Last Taken Type bisacodyl 5 mg tablet,delayed 5 mg PO QAM 02/26/21 02/26/21 Unknown History release (Dulcolax (bisacodyl)) brimonidine 0.2 % eye drops 1 drp OPHTHALMIC (EYE) TID 02/26/21 02/26/21 Unknown History cetirizine 10 mg tablet 10 mg PO QAM 02/26/21 02/26/21 Unknown History dorzolamide 2 % eye drops 1 drp OPHTHALMIC (EYE) TID 02/26/21 02/26/21 Unknown History ergocalciferol (vitamin D2) 1,250 1,250 mcg PO QMONTH 02/26/21 02/26/21 Unknown History mcg (50,000 unit) capsule (Vitamin D2) ferrous sulfate 325 mg (65 mg 325 mg PO BID 02/26/21 02/26/21 Unknown History iron) tablet fluticasone 500 mcg-salmeterol 50 1 inh INHALATION BID 02/26/21 02/26/21 Unknown History mcg/dose blistr powdr for inhalation (Wixela Inhub) lactulose 10 gram/15 mL oral 30 ml PO TID 02/26/21 02/26/21 Unknown History solution latanoprost 0.005 % eye drops 1 drp OPHTHALMIC (EYE) QPM 02/26/21 02/26/21 Unknown History (Xalatan) pantoprazole 40 mg tablet,delayed 40 mg PO BID 02/26/21 02/26/21 Unknown History release polyethylene glycol 3350 17 gram 17 g PO QAM 02/26/21 02/26/21 Unknown History oral powder packet (Miralax) sertraline 50 mg tablet 50 mg PO QAM 02/26/21 02/26/21 Unknown History trazodone 50 mg tablet 150 mg PO BEDTIME 02/26/21 02/26/21 Unknown History umeclidinium 62.5 mcg/actuation 1 inh INHALATION QAM 02/26/21 02/26/21 Unknown History blister powder for inhalation (Incruse Ellipta) Exam Height,Weight and Vital Signs: Height 5 ft 6 in Weight 61.689 kg Vital Signs Temp Pulse Resp BP Pulse Ox 03/02/21 10:04 97.7 F 65 16 135/60 100 Airway Mallampati Class: II TM Dist: >3cm Neck ROM: Full Denture: Upper Loose/Missing/Broken Teeth: Yes (Few teeth bottom. None loose) Heart: RRR Lungs: CTAB Assessment and Plan Assessment Anesthesia Assessment: Anesthesia Plan Discussed Final Anesthetic Review Family History of Problems with Anesthesia: No History of Problems with Anesthesia: No NPO: Yes ASA Class: III Final Preanesthetic Review: No Changes in Pt Med Stat, Meds/Allgs Chart Reviewed, Consent Obtained/Reviewed and Anes Risks/Benef Reviewed Patient Risk: Intermediate Procedure Risk: Low Assessment/Block/Sedation in SS: Assess/Block/Sedation-SS Anesthetic Plan Anesthetic Plan: MAC: Disposition: Standard PACU
[2021-03-02] VITALS (35 sets, daily range): BP systolic 90–151; BP diastolic 42–85; PULSE 65–117; RESP 12–49; TEMP 35.7–38; O2SAT 88–100
--- NOTE | ~2021-03-02 | XR_ITS ---
EXAMINATION: XR CHEST CLINICAL INFORMATION: Follow-up aspiration pneumonia. COMPARISON: 03/06/2021 chest radiograph, CT scan of the abdomen and pelvis dated 12/20/2020. TECHNIQUE: Frontal view of the chest was obtained. FINDINGS: Support devices: Right-sided internal jugular catheter tip terminating at the atrial caval junction without significant change. Diffuse coarsened interstitial pulmonary markings are seen with similar distribution and severity bilaterally. There is minimal blunting of the costophrenic angles bilaterally, right greater than left. The heart and mediastinal structures are unremarkable. XR/XR chest 1V IMPRESSION: Diffuse interstitial markings consistent with chronic interstitial lung disease partially visualized on the CT scan of the abdomen and pelvis. No significant new abnormality or definitive focal infiltrate
--- NOTE | ~2021-03-02 | XR_ITS ---
EXAMINATION: XR CHEST CLINICAL INFORMATION: Extubated COMPARISON: March 02, 2021 TECHNIQUE: AP portable view of the chest was obtained. FINDINGS: Since previous study patient has been extubated and enteric tube removed. Internal jugular central venous catheter again seen in place. There is diffuse interstitial lung disease again seen bilaterally. No significant change is appreciated. No pneumothorax or significant significant pleural effusion. There appears to be some chronic pleural-parenchymal disease at the right base. Heart normal size. No evidence of pulmonary edema. XR/XR chest 1V IMPRESSION: Status post removal of endotracheal tube and enteric catheter. No significant change in diffuse bilateral lung disease.
--- NOTE | ~2021-03-02 | XR_ITS ---
EXAMINATION: XR CHEST CLINICAL INFORMATION: Right IJ line placement COMPARISON: Chest radiograph earlier today at 2:00 PM TECHNIQUE: Frontal view of the chest was obtained. FINDINGS: Since the prior study a right IJ line has been placed with its tip at the SVC/RA junction. The exam is otherwise unremarkable. ET tube remains in position about 3.7 cm above the ny. An NG tube has its tip below the diaphragm. Diffuse pulmonary parenchymal opacities are again seen and unchanged. XR/XR chest 1V IMPRESSION: Uneventful placement of right IJ line without complication.
--- NOTE | ~2021-03-02 | XR_ITS ---
EXAMINATION: XR CHEST CLINICAL INFORMATION: Aspiration. COMPARISON: Chest radiograph dated from 01/11/2021. TECHNIQUE: AP view of the chest was obtained. FINDINGS: The tip of the endotracheal tube is difficult to accurately visualize, although it appears to terminate at less than 1 cm from the ny. Unchanged appearance of the cardiomediastinal silhouette with atherosclerotic disease of the thoracic aorta and surgical clips projecting over the epigastrium. There is increased interstitial prominence when compared to December within a background of architectural distortion and chronic interstitial markings. Similarly, there are increased patchy opacities in the right lower lobe and retrocardiac region. No pleural effusion or pneumothorax. No acute osseous findings. XR/XR chest 1V IMPRESSION: 1. The tip of the endotracheal tube is difficult to visualize however, it appears to be located at 6 mm above the ny. Recommend repositioning. 2. There is increased interstitial prominence and new patchy opacities in the lung bases, worrisome for a multifocal infectious or inflammatory process. 3. There is a background of chronic interstitial disease and architectural distortion. This critical result was discussed with Lary Kim MD at 03/02/2021 1:04 PM and it was ascertained that the content and urgency of the report was understood at the time of direct communication.
--- NOTE | ~2021-03-02 | XR_ITS ---
EXAMINATION: XR CHEST CLINICAL INFORMATION: Pulled out central line COMPARISON: Chest radiograph 03/09/2021 TECHNIQUE: Frontal view of the chest was obtained. FINDINGS: Since the prior study, the right IJ line has been removed. No pneumothorax is seen. There is been no interval change in diffuse interstitial lung disease is once again seen. XR/XR chest 1V IMPRESSION: Right IJ line no longer in place. Exam otherwise unchanged.
--- NOTE | ~2021-03-02 | XR_ITS ---
EXAMINATION: XR CHEST CLINICAL INFORMATION: Evaluate for enteric tube placement. COMPARISON: Chest radiograph done earlier today at 12:12 PM. TECHNIQUE: AP view of the chest was obtained. FINDINGS: The endotracheal tube terminates at 3.7 cm above the yn. The enteric tube curses underneath the diaphragm and terminates out of the [id number]. Unchanged appearance of the cardiomediastinal silhouette. Redemonstration of diffuse interstitial prominence and patchy opacities in the lung bases, grossly unchanged since a few hours earlier. No pleural effusion or pneumothorax. No acute osseous findings. XR/XR chest 1V IMPRESSION: 1. Endotracheal tube terminates at 3.7 cm above the ny. 2. Enteric tube courses underneath the diaphragm and into the stomach terminating out of the [id number]. 3. Interstitial prominence and patchy airspace opacities are stable since a few hours earlier.
--- NOTE | 2021-03-02 10:03 | PC.NURSE ---
patient denies having diabetes. not on any meds for it and states he is prediabetic.
[2021-03-02] MEDS: Lactated Ringers 1,000 ML 100 ML IVCONT (10:16)
--- NOTE | 2021-03-02 10:22 | MHC.SHP ---
Pre-Procedural Eval Section A Date of Service: 03/02/21 The patient is an INPATIENT: No Changes since office visit: No Cold of Flu in the past 2 weeks, No New Medical Problems, No Changes in Medication and No Patient answered all questions The History & Physical has been completed within 30 days and I have reviewed it.: Yes Section B Chief Complaint: Epigastric Pain Allergies: Allergies Allergy/AdvReac Type Severity Reaction Status Date / Time cinnamon Allergy Angioedema Verified 03/02/21 09:43 Plan I have reviewed the history and physical and performed a pertinent physical examination on my patient. No changes have occurred unless specified.
--- NOTE | 2021-03-02 11:08 | PM.OP ---
Brief Operative Note Date of Service: 03/02/21 Pre-op diagnosis: epigastric pain Post-op diagnosis: same Procedure: egd Surgeon: Deng Cook Anesthesia: GETA Estimated blood loss (mL): 2 Pathology: other (bioposies antrum, egj, anastamosis) Condition: stable Disposition: PACU
--- NOTE | 2021-03-02 11:41 | OP_ITS ---
SURGEON: Deng Cook MD INDICATIONS: Abdominal pain. PREOPERATIVE DIAGNOSIS: POSTOPERATIVE DIAGNOSIS: PROCEDURE PERFORMED: Upper endoscopy with biopsy. ESTIMATED BLOOD LOSS: COMPLICATIONS: ANESTHESIA: ASSISTANTS: SPECIMENS: MEDICATIONS: General anesthesia. DESCRIPTION OF PROCEDURE: History and physical performed. The risks and benefits of the procedure were explained to the patient. Informed consent was obtained. The patient was placed in the left lateral decubitus position. The Olympus video gastroscope was introduced into the esophagus, stomach, and duodenum. Examination was performed and the scope was removed. The procedure was initially done with monitored anesthesia care and the patient subsequently was intubated for airway protection and management. FINDINGS: Esophagus: Some liquid refluxed from the stomach into the esophagus. There was no esophagitis. Biopsies were obtained from the EG junction. There was no stricture. Stomach: Stomach showed some retained food and liquid. There appeared to be a gastrojejunal anastomosis. Biopsies were obtained from the antrum. There appeared to be an area of ulceration measuring approximately 1 cm at the anastomosis. The remainder of the small intestine appeared normal. Biopsies were obtained from the ulcerated area. During the procedure, the patient required oral suctioning of gastric contents from the back of the throat, suggesting that there was a component of aspiration. The scope was removed so his airway could be managed by anesthesia. He subsequently required intubation for hypoxemia and airway protection, and the scope was reinserted to finish the exam. After the procedure, the endotracheal tube was removed but the patient required repeat endotracheal intubation. He was transferred to the recovery room intubated and the current plan is for admission to the ICU for management, IMPRESSION: Anastomotic ulcer. RECOMMENDATION: Follow up the biopsy results. MD DENY Peck/MILO / [id number] MTDD
--- NOTE | 2021-03-02 12:14 | PC.NURSE ---
md wilson spoke to juan manuel dick about patients plan of care and stay at the hospital. i spoke to patients health care worker in the waiting room.
--- NOTE | 2021-03-02 12:39 | P.HPCC_ITS ---
History of Present Illness Date of Service: 03/02/21 Attending physician on admission: Deng Coko Chief Complaint: Witnessed aspiration with acute hypoxemic respiratory failure 80-year-old male who status post Billroth II procedure developed subacute GI blood loss anemia as well as early satiety and weight loss and upper abdominal pain and had upper endoscopy noting an anastomotic ulcer with outlet obstruction significant gastric distension and probable active bleeding biopsies were taken but there was witnessed aspiration as a complication requiring him to be intubated Besides being anemic he has got significant eosinophilia and as well as COPD he has got extensive interstitial fibrosis Currently on propofol breathing comfortably he has got positive the neck veins and he has adequate bilateral carotid upstrokes in sinus rhythm but I need updated labs and EKG and bedside echo shows normal LV and RV size and systolic function with globally normal wall motion No primary valve or pericardial disease No measurable pulmonary hypertension And IVC diameter was normal with inspiratory collapse so clearly still room for IV fluid Review of Systems Review of Systems: Yes Unobtainable due to mental status PMFSH Past Medical History Medical History (Updated 03/02/21 @ 16:36 by Gisele De Santiago MD) COPD (chronic obstructive pulmonary disease) COPD (chronic obstructive pulmonary disease) Depressed Diabetes Elevated cholesterol GERD (gastroesophageal reflux disease) Glaucoma History of ETOH abuse HTN (hypertension) Oxygen dependent Peptic ulcer Resides in senior care facility Stomach cancer Surgical History Surgical History (Updated 03/02/21 @ 16:36 by Gisele De Santiago MD) H/O Billroth II operation Surgical history unknown Social History Social History Household Members Other:: resides in SNF Housing: [facility] Housing Other:: [facility] Are you a primary patient care coordinator to a significant other at home: No Do you presently have visiting nurse or other home services: No Unable to assess alcohol history related to: Unknown Patient Tobacco Use Status: Tobacco use Unknown Use of substances other than those prescribed or required for medical reasons: Unable to respond Currently Displaying Signs/Symptoms of Drug Intoxication Withdrawal: No Have you been hit, kicked, punched, or otherwise hurt by someone within the past year? If so, by whom?: No Are you DNR?: No Advance Directives: Yes Advance Directives Information Provided: Yes Advance Directives on File: Yes Advance Directives Date on File: 09/04/20 Recently lost weight without trying: No Eating poorly because of decreased appetite: No Nutrition Risks: Surgical patient >75years Poor oral hygiene: Yes Meds Allergies Allergy/AdvReac Type Severity Reaction Status Date / Time cinnamon Allergy Angioedema Verified 03/02/21 09:43 Active Medications: Current Medications Albuterol Sulfate (Albuterol Sulfate (0.083%) 2.5 Mg/3 Ml Vial.Neb) 2.5 mg INHALE ONCE PRN PRN Reason: Shortness of Breath/Wheezing Albuterol/Ipratropium (Albuterol/Iprat 2.5/0.5mg 3 Ml Ampul.Neb) 3 ml INHALE RQ4H WHILE AWAKE [facility] Brimonidine Tartrate (Brimonidine Tartrate 0.2% Oph 5 Ml Bottle) 1 drop EYE- BOTH TID [facility] Chlorhexidine Gluconate (Chlorhexidine Gluc Oral Rinse 15 Ml Mouthwash) 15 ml BUCCAL TID ALISSA Dorzolamide HCl (Dorzolamide Hcl 2 % Ophth Liv 10 Ml Drpbtl) 1 drop EYE-BOTH TID [facility] Lactated Ringer's (Lr) 1,000 mls @ 100 mls/hr IVCONT .Q10H [facility] Last Admin: 03/02/21 10:16 Dose: 100 mls/hr Documented by: Dextrose/Lactated Ringer's ([id number]) 1,000 mls @ 100 mls/hr IVCONT .Q10H [facility] Pantoprazole Sodium 40 mg/ (Sodium Chloride) 110 mls @ 400 mls/hr IV DAILY@0630 [facility] Piperacillin Sod/Tazobactam (Sod 4.5 gm/ Sodium Chloride) 100 mls @ 200 mls/hr IV Q6H [facility] Propofol (Diprivan) 1,000 mg in 100 mls @ 0 mls/hr IVCONT .Q0M [facility]; Protocol Latanoprost (Latanoprost 0.005 % Ophth Liv 2.5 Ml Drops) 1 drop EYE-BOTH BEDTIME [facility] Home Medications Medication Instructions Recorded Confirmed Last Taken Type bisacodyl 5 mg tablet,delayed 5 mg PO QAM 02/26/21 02/26/21 Unknown History release (Dulcolax (bisacodyl)) brimonidine 0.2 % eye drops 1 drp OPHTHALMIC (EYE) TID 02/26/21 02/26/21 Unknown History cetirizine 10 mg tablet 10 mg PO QAM 02/26/21 02/26/21 Unknown History dorzolamide 2 % eye drops 1 drp OPHTHALMIC (EYE) TID 02/26/21 02/26/21 Unknown History ergocalciferol (vitamin D2) 1,250 1,250 mcg PO QMONTH 02/26/21 02/26/21 Unknown History mcg (50,000 unit) capsule (Vitamin D2) ferrous sulfate 325 mg (65 mg 325 mg PO BID 02/26/21 02/26/21 Unknown History iron) tablet fluticasone 500 mcg-salmeterol 50 1 inh INHALATION BID 02/26/21 02/26/21 Unknown History mcg/dose blistr powdr for inhalation (Wixela Inhub) lactulose 10 gram/15 mL oral 30 ml PO TID 02/26/21 02/26/21 Unknown History solution latanoprost 0.005 % eye drops 1 drp OPHTHALMIC (EYE) QPM 02/26/21 02/26/21 Unknown History (Xalatan) pantoprazole 40 mg tablet,delayed 40 mg PO BID 02/26/21 02/26/21 Unknown History release polyethylene glycol 3350 17 gram 17 g PO QAM 02/26/21 02/26/21 Unknown History oral powder packet (Miralax) sertraline 50 mg tablet 50 mg PO QAM 02/26/21 02/26/21 Unknown History trazodone 50 mg tablet 150 mg PO BEDTIME 02/26/21 02/26/21 Unknown History umeclidinium 62.5 mcg/actuation 1 inh INHALATION QAM 02/26/21 02/26/21 Unknown History blister powder for inhalation (Incruse Ellipta) Physical Exam Vital Signs: Vital Signs: Last Vital Signs Temp 97.6 F 03/02/21 11:40 Pulse 99 03/02/21 12:30 Resp 18 03/02/21 12:30 BP 121/63 03/02/21 12:30 Pulse Ox 91 L 03/02/21 12:30 Body Mass Index 21.9 Sedated and intubated Changed to pressure control on the ventilator because of dyssynchrony Skin is intact Somewhat prolonged expiratory time but no significant accessory muscle use and FiO2 has been weaned to 40% Abdomen benign no organomegaly Results Labs CBC and Chem 7: 03/02/21 16:25 Assessment and Plan (1) H/O Billroth II operation: Status: Acute (2) Peptic anastomotic ulcer: Status: Acute (3) Upper GI bleeding: Status: Acute (4) Anemia: Status: Acute (5) Acute respiratory failure without hypercapnia: Status: Acute (6) Aspiration pneumonitis: Status: Acute (7) COPD (chronic obstructive pulmonary disease): Status: Acute He will remain intubated at least overnight with IV fluids for blood pressure maintenance and he will remain on pressure control which is keeping him synchronized with the ventilator and I am going to repeat blood testing to be sure that the very minor metabolic acidosis completely resolves and to be sure his hemoglobin falls no further if it falls below 7-7.5 will need to transfuse
--- NOTE | 2021-03-02 12:40 | PC.NURSE ---
spoke to michelle tuttle at [facility] [phone] for patients admission to the hospital.
[2021-03-02] MEDS: propofoL 1,000 MG/100 ML VIAL 18.51 MG IVCONT ×2 (12:44→15:43)
[2021-03-02] MEDS: Midazolam HCl/PF 2 MG/2 ML VIAL 3 MG IVPUSH (13:10)
[2021-03-02 13:15] LABS: COVID-19 Test Negative (Negative); IDNOW Serial# 9DD0AD1C
[2021-03-02] MEDS: Dextrose 5 % and Lactated Ring 1,000 ML 100 ML IVCONT ×2 (13:46→22:48)
[2021-03-02] MEDS: Pantoprazole Sodium 40 MG/10 ML VIAL IVPUSH (13:56)
[2021-03-02] MEDS: Piperacillin Sodium/Tazobactam 4.5 GM in 0.9 % Sodium Chloride 100 ML IV ×2 (14:01→18:51)
[2021-03-02] MEDS: Albuterol/Iprat 2.5/0.5MG 3 ML AMPUL.NEB INHALE ×2 (14:53→19:48)
[2021-03-02] MEDS: Dorzolamide HCl 2 % Ophth Sol 10 ML DRPBTL 1 DROP EYE-BOTH ×2 (15:47→20:21)
[2021-03-02] MEDS: Brimonidine Tartrate 0.2% Oph 5 ML BOTTLE 1 DROP EYE-BOTH ×2 (15:47→20:21)
[2021-03-02] MEDS: Chlorhexidine Gluc Oral Rinse 15 ML MOUTHWASH BUCCAL ×2 (15:48→20:21)
[2021-03-02 15:51] LABS: ABG HCO3 21 mmol/L (22-26); ABG pCO2 36 mmHg (32-45); ABG pCO2 TC 35 mmHg (32-45); ABG pH 7.37 (7.35-7.45); ABG pH TC 7.38 (7.35-7.45); ABG pO2 63 mmHg (83-108); ABG pO2 TC 59 (83-108)
[2021-03-02 15:59] LABS: Glucose, Whole Blood 135 mg/dL (60-115)
[2021-03-02] MEDS: fentaNYL citrate/PF 100 MCG/2 ML VIAL 50 MCG IVPUSH (16:13)
[2021-03-02] MEDS: fentaNYL citrate/NS 1,000 MCG/100 ML PLAST..BAG 5 MCG IVCONT (16:17)
[2021-03-02 16:49] LABS: Anion Gap 13 (12-20); Blood Urea Nitrogen 13 mg/dL (9-16); Carbon Dioxide 20 mmol/L (22-29); Chloride 109 mmol/L (96-108); Creatinine Clr Calc Pharmacy 58.4; Estimated Glomerular Filt Rate > 60; Glucose Random 156 mg/dL (60-115); Potassium 4.1 mmol/L (3.3-5.1); Sodium 138 mmol/L (135-145)
--- NOTE | 2021-03-02 18:30 | PC.NURSE ---
Pt to floor from PACU. VSS, afebrile. Sr on tele Postive cough/gag, sedated on propofol, fentanyl added per emar for high respiratory rate. Vent settings changed to PC Rate 16, 18/5, 40%. Inline secretions brown and thick. Garcia and og tube inserted- og to intermittent suction per md. Prevalon, airloss bed, repo q2hr. family updated by surgeon.
[2021-03-02 19:06] LABS: VBG Base Excess -2.3 mmol/L; VBG HCO3 20 mmol/L (22-26); VBG pCO2 29 mmHg; VBG pH 7.45 (7.32-7.43); VBG pO2 202 mmHg
[2021-03-02 19:07] LABS: Venous Blood Gas Refer to POC result
[2021-03-02 19:32] LABS: MANUAL DIFF FLAG NO
[2021-03-02 19:39] LABS: Basophils Percent Auto 0.2 % (0-2); Eosinophils Percent Auto 0.1 % (0-4); Hematocrit 23.4 % (42.0-52.0); Hemoglobin 7.1 g/dl (14.0-18.0); Imm Gran Abs Auto 0.12 X10*3/uL (0.00-0.03); Imm Gran Pct Auto 0.9 % (0.0-0.4); Lymphocytes Absolute Auto 0.5 X10*3/uL (1.2-4.9); Lymphocytes Percent Auto 3.7 % (20-40); Mean Corpuscular HGB Conc 30.3 g/dl (31.0-36.0); Mean Corpuscular Hemoglobin 23.8 pg (27.0-33.0); Mean Corpuscular Volume 78.5 fL (80.0-98.0); Mean Platelet Volume 10.5 fL (9.4-12.4); Monocytes Absolute Auto 0.8 X10*3/uL (0.1-1.2); Monocytes Percent Auto 5.9 % (2-11); Neutrophils Absolute Auto 12.45 x10*3/uL (2.0-8.3); Neutrophils Percent Auto 89.2 % (45-73); Platelet Count 298 X10*3/uL (160-400); Red Blood Count 2.98 X10*6/uL (4.60-5.80); Red Cell Distribution Width 15.8 % (11.0-16.0)
[2021-03-02 20:09] LABS: Anion Gap 14 (12-20); Blood Urea Nitrogen 14 mg/dL (9-16); Calcium 7.7 mg/dL (8.4-10.2); Carbon Dioxide 19 mmol/L (22-29); Chloride 109 mmol/L (96-108); Creatinine Clr Calc Pharmacy 60.6; Estimated Glomerular Filt Rate > 60; Glucose Random 150 mg/dL (60-115); Potassium 4.5 mmol/L (3.3-5.1); Sodium 137 mmol/L (135-145)
[2021-03-02] MEDS: Phenylephrine HCL 20 MG in 0.9 % Sodium Chloride 250 ML 46.64 MG IVCONT (20:19)
[2021-03-02] MEDS: propofoL 1,000 MG/100 ML VIAL 14.81 MG IVCONT (20:21)
--- NOTE | 2021-03-02 20:31 | PC.NURSE ---
Addendum entered by Cinthya Burns RN 03/02/21 23:24: P- Patient persists with abnormal breathing pattern-low RR (4-8) with high tidal volumes ([id number]) on PSV vs breath stacking with high tidal volumes on AC. ?Agonal breathing pattern I- Nimbex gtt started. Central line inserted. E-Patient appears more comfortable, less air hungry. Now on PC //50% Original Note: P- Patient stacking breathes constantly. RR 30's. SBP 80's-90's. Appears air hungry, belly breathing. I- Vent settings changed to PSV of 3, peep 5, fio2 40%. Sedation increased. Phenylephrine hung. Patient to be given RBC's x2. E- RR 10-12, TV [id number], MV 10-12. Patient appears more comfortable. Titrating phenylephrine to map >65.
[2021-03-02 21:58] LABS: ABG Base Excess -3.8 mmol/L; ABG HCO3 23 mmol/L (22-26); ABG pCO2 49 mmHg (32-45); ABG pCO2 TC 50 mmHg (32-45); ABG pH 7.27 (7.35-7.45); ABG pH TC 7.26 (7.35-7.45); ABG pO2 66 mmHg (83-108); ABG pO2 TC 67 (83-108)
[2021-03-02] MEDS: Cisatracurium Besylate 20 MG/10 ML VIAL 10 MG IVPUSH (22:05)
[2021-03-02] MEDS: Cisatracurium Besylate 100 MG in 0.9 % Sodium Chloride 40 ML IVCONT (22:30)
--- NOTE | 2021-03-02 22:59 | P.EN_ITS ---
Event Note Date of Service: 03/04/21 Event Note: Reportedly the patient had an upper endoscopy in subsequently was intubated as he had aspirated some gastric contents, aspiration pneumonitis was suspected, patient was kept intubated and x-ray was obtained which shows aspiration infiltrates. He was placed on Zosyn. During the short course of my treatment between 6:30 p.m. and 9:30 p.m. today, patient continued to have ventilation issues, it was reported to me the patient has had the same problem throughout all this afternoon with tidal volumes happened 1200s, low respiratory rate intermittent episodes of weakness. And notices blood pressure was marginal in the low 90s, patient is producing less and less urine, his H&H has dropped to 723. Blood gas was reviewed from this evening and appears normal with a base excess of-2.3. At this point I decided to place the patient on Abhishek-Synephrine to increase his b lood pressure and tolerate better sedation by increasing propofol. Despite of this, patient continues to have same issue and bucking the vent, I believe the patient needs to be paralyzed and I also think the patient needs central line. I discussed the above-mentioned decisions with Dr. Bro who agrees. Verbal consent for transfusion was also obtained from patient's son Jensen Shoemaker. However subsequent call to get consent for central line was done but the he did answer the phone therefore this will be placed based on medical necessity and emergency. Labs were repeated and shows a higher white count, increased on the neutrophil count, his lactic acid is below 1.5 however I still think the patient is septic. The patient is at risk of fluid overload because he is getting blood in his already begun fluid during and after the procedure. At this point I will only give him 1 more L of lactated Ringer's while he is getting the transfusion with hope of eventually discontinuing vasopressors. I did notice that antibiotics had been started but no blood cultures had been obtained, a set of blood cultures was ordered. Repeat Focused sepsis exam done at 0100 on 03/03/2021; Blood pressure 119/53 (on Abhishek-Synephrine) her rate 113, respirations 18, temperature 99.7 Ventilation settings AC 18/ 450, 5 FiO2 55% patient currently satting 95-96% Sedated; skin intact Clear S1-S2, tachycardic, no murmurs, rubs, gallops Coarse lung sounds bilaterally with bilateral rhonchi Abdomen slightly protuberant, positive bowel sounds. No distension. Vascular 2+ pulses of the upper lower extremities distally and bilaterally, less than 2nd capillary refill of the finger and toes. Labs reviewed Images reviewed Assessment / Plan Acute sepsis in the setting of aspiration pneumonia UGIB post upper endoscopy Continue with the above-mentioned plan, central line placement, paralytics and ongoing ventilation, will repeat labs in the morning, continue with blood transf usion. Total time spent with patient separate any type of procedures is 60 minutes Case discussed with Dr. Bro.
--- NOTE | 2021-03-02 23:00 | P.PCNCC_ITS ---
Procedures Date of Service Date of Service: 03/02/21 <KAMALA Brooks Last Filed: 03/03/21 00:39> Central Line Placement A quick time-out was made for clarification and proper patient identification, patient was positioned, landmarks were identified, US used to locate a large compressible IJ. The right neck was widely prepped and draped in a full sterile fashion. Ultrasound was used to locate again the right IJ, the vein was cannulated on the 1st pass with an 18 gauge thin needle, dark nonpulsatile blood return was obtained. The wire was threaded, a small incision was made at its base and dilator inserted. A triple-lumen central venous catheter was advanced into the vein up to the hub without problems, wired was removed. Ports had good blood return and flushed x3. The catheter was secured with 3 sutures at 3 sites, a Biopatch and dry sterile dressing were applied.Post procedure chest x- ray showed the line to be in good position without pneumothorax. No bleeding or complications noted.: Consent for Procedure: Emergent-no informed consent obtained <KAMALA Brooks - Last Filed: 03/03/21 00:39> Time out performed: Yes <KAMALA Brooks Last Filed: 03/03/21 00:39> Sterile Technique Used: Yes <KAMALA Brooks Last Filed: 03/03/21 00:39> Patient placed on monitor/pulse ox: Yes <KAMALA Brooks Last Filed: 03/03/21 00:39> MD prep: mask, gown and gloves <KAMALA Brooks Last Filed: 03/03/21 00:3 9> Central line prep: Chlorhexidine scrub <KAMALA Brooks Last Filed: 03/03/21 00:39> Ultrasound used for placement: Yes <KAMALA Brooks Last Filed: 03/03/21 00:39> Central line lumen inserted: triple <KAMALA Brooks Last Filed: 03/03/21 00:39> Post procedure: sutured in place, good blood return, all ports aspirated, flushed, capped and sterile dressing applied <KAMALA Brooks Last Filed: 03/03/21 00:39> Post procedure x-ray: tip of catheter in good position and no pneumothorax seen <KAMALA Brooks - Last Filed: 03/03/21 00:39> Patient tolerated procedure: no complications <KAMALA Brooks - Last Filed: 03/03/21 00:39> Complications: none <KAMALA Brooks - Last Filed: 03/03/21 00:39>
[2021-03-02] MEDS: fentaNYL citrate/NS 1,000 MCG/100 ML PLAST..BAG 15 MCG IVCONT (23:05)
[2021-03-02 23:30] LABS: VBG Base Excess -2.9 mmol/L; VBG HCO3 26 mmol/L (22-26); VBG pCO2 75 mmHg; VBG pH 7.15 (7.32-7.43); VBG pO2 68 mmHg
[2021-03-02 23:38] LABS: Basophils Percent Auto 0.1 % (0-2); Eosinophils Percent Auto 0.1 % (0-4); Hematocrit 25.3 % (42.0-52.0); Hemoglobin 7.3 g/dl (14.0-18.0); Imm Gran Abs Auto 0.09 X10*3/uL (0.00-0.03); Imm Gran Pct Auto 0.5 % (0.0-0.4); Lymphocytes Absolute Auto 0.6 X10*3/uL (1.2-4.9); Lymphocytes Percent Auto 3.2 % (20-40); MANUAL DIFF FLAG SCAN; Mean Corpuscular HGB Conc 28.9 g/dl (31.0-36.0); Mean Corpuscular Hemoglobin 23.9 pg (27.0-33.0); Mean Corpuscular Volume 82.7 fL (80.0-98.0); Mean Platelet Volume 9.8 fL (9.4-12.4); Monocytes Absolute Auto 0.9 X10*3/uL (0.1-1.2); Monocytes Percent Auto 4.7 % (2-11); Neutrophils Absolute Auto 18.28 x10*3/uL (2.0-8.3); Neutrophils Percent Auto 91.4 % (45-73); Platelet Count 389 X10*3/uL (160-400); Red Blood Count 3.06 X10*6/uL (4.60-5.80); Red Cell Distribution Width 15.9 % (11.0-16.0); SCAN SMEAR FLAG 1
[2021-03-02 23:39] LABS: Venous Blood Gas Refer to POC result
[2021-03-02 23:40] LABS: ABG Refer to POC result
[2021-03-02 23:42] LABS: SLIDE REVIEW VERIFIED
[2021-03-02 23:49] LABS: Lactic Acid 1.2 mmol/L (0.5-2.0)
[2021-03-03] VITALS (48 sets, daily range): BP systolic 81–131; BP diastolic 37–70; PULSE 69–115; RESP 12–24; TEMP 37–38; O2SAT 94–100; BMI 25.6
[2021-03-03] MEDS: Lactated Ringers 1,000 ML 999 ML IV (00:09)
[2021-03-03 00:10] LABS: Anion Gap 9 (12-20); Blood Urea Nitrogen 15 mg/dL (9-16); Calcium 7.9 mg/dL (8.4-10.2); Carbon Dioxide 25 mmol/L (22-29); Chloride 108 mmol/L (96-108); Creatinine Clr Calc Pharmacy 59.1; Estimated Glomerular Filt Rate > 60; Glucose Fasting 123 mg/dL (60-99); Potassium 4.2 mmol/L (3.3-5.1); Sodium 138 mmol/L (135-145)
[2021-03-03] MEDS: Phenylephrine HCL 20 MG in 0.9 % Sodium Chloride 250 ML 46.64 MG IVCONT ×2 (00:16→20:11)
[2021-03-03] MEDS: Piperacillin Sodium/Tazobactam 4.5 GM in 0.9 % Sodium Chloride 100 ML IV ×4 (00:16→20:11)
[2021-03-03] MEDS: propofoL 1,000 MG/100 ML VIAL 11.1 MG IVCONT ×2 (05:08→10:58)
[2021-03-03] MEDS: fentaNYL citrate/NS 1,000 MCG/100 ML PLAST..BAG 10 MCG IVCONT (05:08)
[2021-03-03] MEDS: Pantoprazole Sodium 40 MG/10 ML VIAL IVPUSH ×2 (05:08→15:41)
[2021-03-03 05:27] LABS: VBG Base Excess -2.1 mmol/L; VBG HCO3 27 mmol/L (22-26); VBG pCO2 73 mmHg; VBG pH 7.17 (7.32-7.43); VBG pO2 56 mmHg
[2021-03-03 05:43] LABS: Basophils Percent Auto 0.2 % (0-2); Hematocrit 28.1 % (42.0-52.0); Hemoglobin 8.2 g/dl (14.0-18.0); Imm Gran Abs Auto 0.11 X10*3/uL (0.00-0.03); Imm Gran Pct Auto 0.5 % (0.0-0.4); Lymphocytes Absolute Auto 0.8 X10*3/uL (1.2-4.9); Lymphocytes Percent Auto 3.3 % (20-40); MANUAL DIFF FLAG SCAN; Mean Corpuscular HGB Conc 29.2 g/dl (31.0-36.0); Mean Corpuscular Hemoglobin 24.4 pg (27.0-33.0); Mean Corpuscular Volume 83.6 fL (80.0-98.0); Mean Platelet Volume 9.3 fL (9.4-12.4); Monocytes Absolute Auto 1.3 X10*3/uL (0.1-1.2); Monocytes Percent Auto 5.4 % (2-11); Neutrophils Absolute Auto 21.17 x10*3/uL (2.0-8.3); Neutrophils Percent Auto 90.6 % (45-73); Platelet Count 310 X10*3/uL (160-400); Red Blood Count 3.36 X10*6/uL (4.60-5.80); Red Cell Distribution Width 15.9 % (11.0-16.0); SCAN SMEAR FLAG 1; White Blood Count 23.4 X10*3/uL (4.8-10.8)
[2021-03-03 06:16] LABS: Alanine Aminotransferase 12 U/L (0-40); Albumin Level 3.2 g/dL (3.5-5.0); Alkaline Phosphatase 42 U/L (39-117); Anion Gap 12 (12-20); Aspartate Amino Transferase 16 U/L (5-37); Bilirubin Total 0.3 mg/dL (0.0-1.0); Blood Urea Nitrogen 16 mg/dL (9-16); C Reactive Protein 10.18 mg/dL (< or = 0.50); Calcium 7.7 mg/dL (8.4-10.2); Carbon Dioxide 24 mmol/L (22-29); Chloride 107 mmol/L (96-108); Creatinine Clr Calc Pharmacy 58.4; Estimated Glomerular Filt Rate > 60; Glucose Random 102 mg/dL (60-115); Phosphorus 5.9 mg/dL (2.7-4.5); Potassium 4.9 mmol/L (3.3-5.1); Sodium 138 mmol/L (135-145); Total Protein 5.7 g/dL (6.5-8.0)
[2021-03-03 07:02] LABS: Venous Blood Gas Refer to POC result
[2021-03-03] MEDS: Phenylephrine HCL 20 MG in 0.9 % Sodium Chloride 250 ML 74.62 MG IVCONT (07:11)
[2021-03-03] MEDS: Albuterol/Iprat 2.5/0.5MG 3 ML AMPUL.NEB INHALE ×4 (07:45→19:31)
[2021-03-03] MEDS: Dorzolamide HCl 2 % Ophth Sol 10 ML DRPBTL 1 DROP EYE-BOTH ×3 (08:38→21:42)
[2021-03-03] MEDS: Brimonidine Tartrate 0.2% Oph 5 ML BOTTLE 1 DROP EYE-BOTH ×3 (08:38→21:43)
[2021-03-03] MEDS: Chlorhexidine Gluc Oral Rinse 15 ML MOUTHWASH BUCCAL ×3 (08:38→21:44)
[2021-03-03 09:09] LABS: VBG HCO3 24 mmol/L (22-26); VBG pCO2 57 mmHg; VBG pH 7.23 (7.32-7.43); VBG pO2 62 mmHg
[2021-03-03] MEDS: Phenylephrine HCL 20 MG in 0.9 % Sodium Chloride 250 ML 93.27 MG IVCONT (09:48)
[2021-03-03] MEDS: Cisatracurium Besylate 100 MG in 0.9 % Sodium Chloride 40 ML IVCONT (10:58)
--- NOTE | 2021-03-03 11:26 | MHC.CLN ---
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
[2021-03-03 11:49] LABS: Venous Blood Gas Refer to POC result
[2021-03-03 12:02] LABS: VBG Base Excess -3.3 mmol/L; VBG HCO3 22 mmol/L (22-26); VBG pCO2 43 mmHg; VBG pH 7.32 (7.32-7.43); VBG pO2 50 mmHg
[2021-03-03 12:04] LABS: Basophils Percent Auto 0.1 % (0-2); Eosinophils Absolute Auto 0.1 X10*3/uL (0.0-0.4); Eosinophils Percent Auto 0.3 % (0-4); Hematocrit 25.8 % (42.0-52.0); Hemoglobin 7.7 g/dl (14.0-18.0); Imm Gran Abs Auto 0.16 X10*3/uL (0.00-0.03); Imm Gran Pct Auto 0.7 % (0.0-0.4); Lymphocytes Absolute Auto 1.4 X10*3/uL (1.2-4.9); Lymphocytes Percent Auto 6.4 % (20-40); MANUAL DIFF FLAG SCAN; Mean Corpuscular HGB Conc 29.8 g/dl (31.0-36.0); Mean Corpuscular Hemoglobin 24.6 pg (27.0-33.0); Mean Corpuscular Volume 82.4 fL (80.0-98.0); Mean Platelet Volume 9.3 fL (9.4-12.4); Monocytes Absolute Auto 1.6 X10*3/uL (0.1-1.2); Neutrophils Absolute Auto 19.34 x10*3/uL (2.0-8.3); Neutrophils Percent Auto 85.5 % (45-73); Platelet Count 297 X10*3/uL (160-400); Red Blood Count 3.13 X10*6/uL (4.60-5.80); Red Cell Distribution Width 16.1 % (11.0-16.0); SCAN SMEAR FLAG 1; White Blood Count 22.6 X10*3/uL (4.8-10.8)
[2021-03-03 12:18] LABS: Anion Gap 10 (12-20); Blood Urea Nitrogen 18 mg/dL (9-16); Calcium 7.5 mg/dL (8.4-10.2); Carbon Dioxide 22 mmol/L (22-29); Chloride 108 mmol/L (96-108); Creatinine Clr Calc Pharmacy 59.7; Estimated Glomerular Filt Rate > 60; Glucose Random 114 mg/dL (60-115); Potassium 4.4 mmol/L (3.3-5.1); Sodium 136 mmol/L (135-145)
[2021-03-03 12:26] LABS: SLIDE REVIEW VERIFIED
--- NOTE | 2021-03-03 12:53 | HO.POSTANES ---
Post Anesthesia Evaluation Post Anesthesia Evaluation Vital Signs: Vital Signs Temp Pulse Resp BP Pulse Ox 03/03/21 12:52 107/51 L 03/03/21 12:00 99.9 F 79 24 H 116/47 L 100 03/03/21 11:59 115/47 L 03/03/21 11:23 77 03/03/21 11:03 112/41 L 03/03/21 11:00 99.7 F 80 24 H 107/46 L 100 03/03/21 10:28 126/52 L 03/03/21 10:00 99.5 F 83 24 H 126/52 L 100 03/03/21 09:48 107/70 03/03/21 09:33 131/59 L 03/03/21 09:00 99.1 F 93 24 H 97/37 L 100 03/03/21 08:36 101/37 L 03/03/21 08:00 99.0 F 93 24 H 92/37 L 100 03/03/21 07:50 94 03/03/21 07:16 89/43 L 03/03/21 07:11 94/44 L 03/03/21 07:00 98.6 F 94 22 H 95/44 L 99 03/03/21 06:00 98.8 F 102 H 20 87/45 L 95 03/03/21 05:00 99.1 F 110 H 18 96/51 L 94 03/03/21 04:00 99.1 F 112 H 19 101/52 L 95 03/03/21 03:00 99.1 F 113 H 18 102/54 L 95 03/03/21 02:00 111 H 12 97/46 L 95 03/03/21 01:53 99.1 F 115 H 18 112/54 L 03/03/21 01:38 99 F 112 H 21 H 106/53 L Anesthesia: General Endotracheal-GETA Mental Status: Sedated Pain Control: Satisfactory Nausea/Vomiting: None Hydration: Adequate Anesthesia-Related Issues: No Anes. Related Issues Comments: patient was done under MAC and had apiration. Patient then intubated and sent to ICU. Patient still on ventilator intubated and being followed by ICU
--- NOTE | 2021-03-03 14:08 | P.PNCC_ITS ---
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 presented with extra obstructive gastropathy due to a a anastomotic ulcer which was also bleeding and during endoscopy had a large volume aspiration with acute hypoxemic respiratory failure requiring intubation and here he is not septic but has an aspiration pneumonitis and hypotensive on the basis of a relative hypovolemia along with multiple vaso dilatory influences from medication namely propofol and fentanyl and therefore did not require a full 30 cc/kilos fluid resuscitation but thanks to monitoring CVP we are able to titrate to central venous pressure measurement On the ventilator because of a paralytic and he had relatively inadequate tidal volumes especially given his very high compliance lung structure from COPD required higher tidal volume and with an improvement in his minute ventilation was able to correct his respiratory acidosis bringing pH from 717-7.32 and with which we are able to wean his FiO2 from 60% to 40% and blood pressure cause remains supported with combination of moderate dose vasopressin and phenylephrine but he probably has ongoing bleeding his hemoglobin dropped to 7 and he was transfused 1 unit now he dropped back down into the mid sevens and is going to be transfuse another unit Critical Care Time (minutes): 45 Physical Exam Vital Signs: Vital Signs: Last Vital Signs Temp 99.9 F 03/03/21 13:00 Pulse 77 03/03/21 13:00 Resp 24 H 03/03/21 13:00 BP 105/48 L 03/03/21 13:00 Pulse Ox 99 03/03/21 13:00 Body Mass Index 25.6 Sedated and intubated Skin color normal no livedo no acrocyanosis no breakdown Cardiac exam with normal LV function by bedside echo CVP monitoring currently at 6-7 Chest he has got scattered bilateral coarse rales on the ventilator Abdomen is soft with no organomegaly Objective Data Labs CBC & Chem 7: 03/03/21 11:58 03/03/21 11:58 Labs: Laboratory Results - last 24 hr 03/02/21 03/02/21 03/02/21 15:45 15:56 16:25 WBC RBC Hgb Hct MCV MCH MCHC RDW Plt Count MPV Immature Gran % (Auto) Neut % (Auto) Lymph % (Auto) [place] % (Auto) Eos % (Auto) Baso % (Auto) Lymph # (Auto) [place] # (Auto) Eos # (Auto) Baso # (Auto) Abs Immat Gran (auto) Absolute Neuts (auto) Absolute Nucleated RBC Nucleated RBC % (auto) Smear Tech's Comments O2 Saturation 88.0 ABG pH at Pt Temp 7.37 ABG pH (Temp Correct) 7.38 ABG pCO2 at Pt Temp 36 ABG pCO2 (Temp Corrct 35 ABG pO2 at Pt Temp 63 L ABG pO2 (Temp Correct 59 L ABG HCO3 21 L ABG Base Excess (Actual) -3.0 VBG pH VBG pCO2 VBG pO2 VBG HCO3 VBG O2 Saturation VBG Base Excess Sodium 138 Potassium 4.1 Chloride 109 H Carbon Dioxide 20 L Anion Gap 13 BUN 13 Creatinine 0.85 Estim Creat Clear Calc 58.4 Estimated GFR > 60 POC Glucose 135 H Random Glucose 156 H D Fasting Glucose Lactic Acid Calcium 8.0 L D Phosphorus Total Bilirubin AST ALT Alkaline Phosphatase C-Reactive Protein Total Protein Albumin Blood Type Antibody Screen Crossmatch 03/02/21 03/02/21 03/02/21 16:25 18:59 19:17 WBC 14.0 H RBC 2.98 L Hgb 7.1 L Hct 23.4 L MCV 78.5 L MCH 23.8 L MCHC 30.3 L RDW 15.8 Plt Count 298 MPV 10.5 Immature Gran % (Auto) 0.9 H Neut % (Auto) 89.2 H Lymph % (Auto) 3.7 L [place] % (Auto) 5.9 Eos % (Auto) 0.1 Baso % (Auto) 0.2 Lymph # (Auto) 0.5 L [place] # (Auto) 0.8 Eos # (Auto) 0.0 Baso # (Auto) 0.0 Abs Immat Gran (auto) 0.12 H Absolute Neuts (auto) 12.45 H Absolute Nucleated RBC 0.000 Nucleated RBC % (auto) 0.0 Smear Tech's Comments O2 Saturation ABG pH at Pt Temp ABG pH (Temp Correct) ABG pCO2 at Pt Temp ABG pCO2 (Temp Corrct ABG pO2 at Pt Temp ABG pO2 (Temp Correct ABG HCO3 ABG Base Excess (Actual) VBG pH 7.45 H VBG pCO2 29 VBG pO2 202 VBG HCO3 20 L VBG O2 Saturation 99.0 VBG Base Excess -2.3 Sodium Potassium Chloride Carbon Dioxide Anion Gap BUN Creatinine Estim Creat Clear Calc Estimated GFR POC Glucose Random Glucose Fasting Glucose Lactic Acid 2.0 Calcium Phosphorus Total Bilirubin AST ALT Alkaline Phosphatase C-Reactive Protein Total Protein Albumin Blood Type Antibody Screen Crossmatch 03/02/21 03/02/21 03/02/21 19:17 20:59 21:52 WBC RBC Hgb Hct MCV MCH MCHC RDW Plt Count MPV Immature Gran % (Auto) Neut % (Auto) Lymph % (Auto) [place] % (Auto) Eos % (Auto) Baso % (Auto) Lymph # (Auto) [place] # (Auto) Eos # (Auto) Baso # (Auto) Abs Immat Gran (auto) Absolute Neuts (auto) Absolute Nucleated RBC Nucleated RBC % (auto) Smear Tech's Comments O2 Saturation 86.0 ABG pH at Pt Temp 7.27 L ABG pH (Temp Correct) 7.26 L ABG pCO2 at Pt Temp 49 H ABG pCO2 (Temp Corrct 50 H ABG pO2 at Pt Temp 66 L ABG pO2 (Temp Correct 67 L ABG HCO3 23 ABG Base Excess (Actual) -3.8 VBG pH VBG pCO2 VBG pO2 VBG HCO3 VBG O2 Saturation VBG Base Excess Sodium 137 Potassium 4.5 Chloride 109 H Carbon Dioxide 19 L Anion Gap 14 BUN 14 Creatinine 0.82 Estim Creat Clear Calc 60.6 Estimated GFR > 60 POC Glucose Random Glucose 150 H Fasting Glucose Lactic Acid Calcium 7.7 L Phosphorus Total Bilirubin AST ALT Alkaline Phosphatase C-Reactive Protein Total Protein Albumin Blood Type O Positive Antibody Screen NEGATIVE Crossmatch See Detail 03/02/21 03/02/21 03/02/21 23:18 23:18 23:18 WBC 20.0 H RBC 3.06 L Hgb 7.3 L Hct 25.3 L MCV 82.7 MCH 23.9 L MCHC 28.9 L RDW 15.9 Plt Count 389 D MPV 9.8 Immature Gran % (Auto) 0.5 H Neut % (Auto) 91.4 H Lymph % (Auto) 3.2 L [place] % (Auto) 4.7 Eos % (Auto) 0.1 Baso % (Auto) 0.1 Lymph # (Auto) 0.6 L [place] # (Auto) 0.9 Eos # (Auto) 0.0 Baso # (Auto) 0.0 Abs Immat Gran (auto) 0.09 H Absolute Neuts (auto) 18.28 H Absolute Nucleated RBC 0.000 Nucleated RBC % (auto) 0.0 Smear Tech's Comments VERIFIED O2 Saturation ABG pH at Pt Temp ABG pH (Temp Correct) ABG pCO2 at Pt Temp ABG pCO2 (Temp Corrct ABG pO2 at Pt Temp ABG pO2 (Temp Correct ABG HCO3 ABG Base Excess (Actual) VBG pH VBG pCO2 VBG pO2 VBG HCO3 VBG O2 Saturation VBG Base Excess Sodium 138 Potassium 4.2 Chloride 108 Carbon Dioxide 25 Anion Gap 9 L BUN 15 Creatinine 0.84 Estim Creat Clear Calc 59.1 Estimated GFR > 60 POC Glucose Random Glucose Fasting Glucose 123 H Lactic Acid 1.2 Calcium 7.9 L Phosphorus Total Bilirubin AST ALT Alkaline Phosphatase C-Reactive Protein Total Protein Albumin Blood Type Antibody Screen Crossmatch 03/02/21 03/03/21 03/03/21 23:21 05:15 05:15 WBC 23.4 H RBC 3.36 L Hgb 8.2 L Hct 28.1 L MCV 83.6 MCH 24.4 L MCHC 29.2 L RDW 15.9 Plt Count 310 MPV 9.3 L Immature Gran % (Auto) 0.5 H Neut % (Auto) 90.6 H Lymph % (Auto) 3.3 L [place] % (Auto) 5.4 Eos % (Auto) 0.0 Baso % (Auto) 0.2 Lymph # (Auto) 0.8 L [place] # (Auto) 1.3 H Eos # (Auto) 0.0 Baso # (Auto) 0.0 Abs Immat Gran (auto) 0.11 H Absolute Neuts (auto) 21.17 H Absolute Nucleated RBC 0.000 Nucleated RBC % (auto) 0.0 Smear Tech's Comments O2 Saturation ABG pH at Pt Temp ABG pH (Temp Correct) ABG pCO2 at Pt Temp ABG pCO2 (Temp Corrct ABG pO2 at Pt Temp ABG pO2 (Temp Correct ABG HCO3 ABG Base Excess (Actual) VBG pH 7.15 L* VBG pCO2 75 VBG pO2 68 VBG HCO3 26 VBG O2 Saturation 85.0 VBG Base Excess -2.9 Sodium 138 Potassium 4.9 Chloride 107 Carbon Dioxide 24 Anion Gap 12 BUN 16 Creatinine 0.88 Estim Creat Clear Calc 58.4 Estimated GFR > 60 POC Glucose Random Glucose 102 Fasting Glucose Lactic Acid Calcium 7.7 L Phosphorus 5.9 H Total Bilirubin 0.3 AST 16 ALT 12 Alkaline Phosphatase 42 D C-Reactive Protein 10.18 H Total Protein 5.7 L Albumin 3.2 L Blood Type Antibody Screen Crossmatch 03/03/21 03/03/21 03/03/21 05:16 09:03 11:57 WBC RBC Hgb Hct MCV MCH MCHC RDW Plt Count MPV Immature Gran % (Auto) Neut % (Auto) Lymph % (Auto) [place] % (Auto) Eos % (Auto) Baso % (Auto) Lymph # (Auto) [place] # (Auto) Eos # (Auto) Baso # (Auto) Abs Immat Gran (auto) Absolute Neuts (auto) Absolute Nucleated RBC Nucleated RBC % (auto) Smear Tech's Comments O2 Saturation ABG pH at Pt Temp ABG pH (Temp Correct) ABG pCO2 at Pt Temp ABG pCO2 (Temp Corrct ABG pO2 at Pt Temp ABG pO2 (Temp Correct ABG HCO3 ABG Base Excess (Actual) VBG pH 7.17 L* 7.23 L 7.32 VBG pCO2 73 57 43 VBG pO2 56 62 50 VBG HCO3 27 H 24 22 VBG O2 Saturation 81.0 88.0 82.0 VBG Base Excess -2.1 -3.0 -3.3 Sodium Potassium Chloride Carbon Dioxide Anion Gap BUN Creatinine Estim Creat Clear Calc Estimated GFR POC Glucose Random Glucose Fasting Glucose Lactic Acid Calcium Phosphorus Total Bilirubin AST ALT Alkaline Phosphatase C-Reactive Protein Total Protein Albumin Blood Type Antibody Screen Crossmatch 03/03/21 03/03/21 11:58 11:58 WBC 22.6 H RBC 3.13 L Hgb 7.7 L Hct 25.8 L MCV 82.4 MCH 24.6 L MCHC 29.8 L RDW 16.1 H Plt Count 297 MPV 9.3 L Immature Gran % (Auto) 0.7 H Neut % (Auto) 85.5 H Lymph % (Auto) 6.4 L [place] % (Auto) 7.0 Eos % (Auto) 0.3 Baso % (Auto) 0.1 Lymph # (Auto) 1.4 [place] # (Auto) 1.6 H Eos # (Auto) 0.1 Baso # (Auto) 0.0 Abs Immat Gran (auto) 0.16 H Absolute Neuts (auto) 19.34 H Absolute Nucleated RBC 0.000 Nucleated RBC % (auto) 0.0 Smear Tech's Comments VERIFIED O2 Saturation ABG pH at Pt Temp ABG pH (Temp Correct) ABG pCO2 at Pt Temp ABG pCO2 (Temp Corrct ABG pO2 at Pt Temp ABG pO2 (Temp Correct ABG HCO3 ABG Base Excess (Actual) VBG pH VBG pCO2 VBG pO2 VBG HCO3 VBG O2 Saturation VBG Base Excess Sodium 136 Potassium 4.4 Chloride 108 Carbon Dioxide 22 Anion Gap 10 L BUN 18 H Creatinine 0.86 Estim Creat Clear Calc 59.7 Estimated GFR > 60 POC Glucose Random Glucose 114 Fasting Glucose Lactic Acid Calcium 7.5 L Phosphorus Total Bilirubin AST ALT Alkaline Phosphatase C-Reactive Protein Total Protein Albumin Blood Type Antibody Screen Crossmatch Quality Stroke Does the patient have a stroke diagnosis?: No VTE Prior VTE?: No VTE Risk Level:: Medical - moderate - high VTE Device Contraindication: N/A - Device Ordered VTE Drug Contraindication: Treatment Not Tolerated Progress Note: A&P Assessment and plan (1) COPD (chronic obstructive pulmonary disease): Status: Acute (2) Aspiration pneumonitis: Status: Acute (3) Acute respiratory failure without hypercapnia: Status: Acute (4) Anemia: Status: Acute (5) Upper GI bleeding: Status: Acute (6) Peptic anastomotic ulcer: Status: Acute (7) H/O Billroth II operation: Status: Acute Assessment and Plan: Plan is to transfuse 1 more unit maintain ventilator overnight on assist control tidal volume of 600 and maintain the Zosyn and blood pressure support as well
[2021-03-03] MEDS: Phenylephrine HCL 20 MG in 0.9 % Sodium Chloride 250 ML 37.31 MG IVCONT (14:10)
--- NOTE | 2021-03-03 15:05 | PM.GIPN ---
Subjective Subjective Date of Service: 03/03/21 Critical Care Time (minutes): 0 Comment: sedated and intubated Physical Exam Vital Signs: Vital Signs: Last Vital Signs Temp 99.9 F 03/03/21 13:00 Pulse 85 03/03/21 14:00 Resp 24 H 03/03/21 14:00 BP 95/45 L 03/03/21 14:38 Pulse Ox 96 03/03/21 14:00 Body Mass Index 25.6 GI: Other: abdomen is soft and bowel sounds are present Objective Data Labs CBC & Chem 7: 03/03/21 11:58 03/03/21 11:58 Labs: Laboratory Results - last 24 hr 03/02/21 03/02/21 03/02/21 15:45 15:56 16:25 WBC RBC Hgb Hct MCV MCH MCHC RDW Plt Count MPV Immature Gran % (Auto) Neut % (Auto) Lymph % (Auto) Dale % (Auto) Eos % (Auto) Baso % (Auto) Lymph # (Auto) Dale # (Auto) Eos # (Auto) Baso # (Auto) Abs Immat Gran (auto) Absolute Neuts (auto) Absolute Nucleated RBC Nucleated RBC % (auto) Smear Tech's Comments O2 Saturation 88.0 ABG pH at Pt Temp 7.37 ABG pH (Temp Correct) 7.38 ABG pCO2 at Pt Temp 36 ABG pCO2 (Temp Corrct 35 ABG pO2 at Pt Temp 63 L ABG pO2 (Temp Correct 59 L ABG HCO3 21 L ABG Base Excess (Actual) -3.0 VBG pH VBG pCO2 VBG pO2 VBG HCO3 VBG O2 Saturation VBG Base Excess Sodium 138 Potassium 4.1 Chloride 109 H Carbon Dioxide 20 L Anion Gap 13 BUN 13 Creatinine 0.85 Estim Creat Clear Calc 58.4 Estimated GFR > 60 POC Glucose 135 H Random Glucose 156 H D Fasting Glucose Lactic Acid Calcium 8.0 L D Phosphorus Total Bilirubin AST ALT Alkaline Phosphatase C-Reactive Protein Total Protein Albumin Blood Type Antibody Screen Crossmatch 03/02/21 03/02/21 03/02/21 16:25 18:59 19:17 WBC 14.0 H RBC 2.98 L Hgb 7.1 L Hct 23.4 L MCV 78.5 L MCH 23.8 L MCHC 30.3 L RDW 15.8 Plt Count 298 MPV 10.5 Immature Gran % (Auto) 0.9 H Neut % (Auto) 89.2 H Lymph % (Auto) 3.7 L Dale % (Auto) 5.9 Eos % (Auto) 0.1 Baso % (Auto) 0.2 Lymph # (Auto) 0.5 L Dale # (Auto) 0.8 Eos # (Auto) 0.0 Baso # (Auto) 0.0 Abs Immat Gran (auto) 0.12 H Absolute Neuts (auto) 12.45 H Absolute Nucleated RBC 0.000 Nucleated RBC % (auto) 0.0 Smear Tech's Comments O2 Saturation ABG pH at Pt Temp ABG pH (Temp Correct) ABG pCO2 at Pt Temp ABG pCO2 (Temp Corrct ABG pO2 at Pt Temp ABG pO2 (Temp Correct ABG HCO3 ABG Base Excess (Actual) VBG pH 7.45 H VBG pCO2 29 VBG pO2 202 VBG HCO3 20 L VBG O2 Saturation 99.0 VBG Base Excess -2.3 Sodium Potassium Chloride Carbon Dioxide Anion Gap BUN Creatinine Estim Creat Clear Calc Estimated GFR POC Glucose Random Glucose Fasting Glucose Lactic Acid 2.0 Calcium Phosphorus Total Bilirubin AST ALT Alkaline Phosphatase C-Reactive Protein Total Protein Albumin Blood Type Antibody Screen Crossmatch 03/02/21 03/02/21 03/02/21 19:17 20:59 21:52 WBC RBC Hgb Hct MCV MCH MCHC RDW Plt Count MPV Immature Gran % (Auto) Neut % (Auto) Lymph % (Auto) Dale % (Auto) Eos % (Auto) Baso % (Auto) Lymph # (Auto) Dale # (Auto) Eos # (Auto) Baso # (Auto) Abs Immat Gran (auto) Absolute Neuts (auto) Absolute Nucleated RBC Nucleated RBC % (auto) Smear Tech's Comments O2 Saturation 86.0 ABG pH at Pt Temp 7.27 L ABG pH (Temp Correct) 7.26 L ABG pCO2 at Pt Temp 49 H ABG pCO2 (Temp Corrct 50 H ABG pO2 at Pt Temp 66 L ABG pO2 (Temp Correct 67 L ABG HCO3 23 ABG Base Excess (Actual) -3.8 VBG pH VBG pCO2 VBG pO2 VBG HCO3 VBG O2 Saturation VBG Base Excess Sodium 137 Potassium 4.5 Chloride 109 H Carbon Dioxide 19 L Anion Gap 14 BUN 14 Creatinine 0.82 Estim Creat Clear Calc 60.6 Estimated GFR > 60 POC Glucose Random Glucose 150 H Fasting Glucose Lactic Acid Calcium 7.7 L Phosphorus Total Bilirubin AST ALT Alkaline Phosphatase C-Reactive Protein Total Protein Albumin Blood Type O Positive Antibody Screen NEGATIVE Crossmatch See Detail 03/02/21 03/02/21 03/02/21 23:18 23:18 23:18 WBC 20.0 H RBC 3.06 L Hgb 7.3 L Hct 25.3 L MCV 82.7 MCH 23.9 L MCHC 28.9 L RDW 15.9 Plt Count 389 D MPV 9.8 Immature Gran % (Auto) 0.5 H Neut % (Auto) 91.4 H Lymph % (Auto) 3.2 L Dale % (Auto) 4.7 Eos % (Auto) 0.1 Baso % (Auto) 0.1 Lymph # (Auto) 0.6 L Dale # (Auto) 0.9 Eos # (Auto) 0.0 Baso # (Auto) 0.0 Abs Immat Gran (auto) 0.09 H Absolute Neuts (auto) 18.28 H Absolute Nucleated RBC 0.000 Nucleated RBC % (auto) 0.0 Smear Tech's Comments VERIFIED O2 Saturation ABG pH at Pt Temp ABG pH (Temp Correct) ABG pCO2 at Pt Temp ABG pCO2 (Temp Corrct ABG pO2 at Pt Temp ABG pO2 (Temp Correct ABG HCO3 ABG Base Excess (Actual) VBG pH VBG pCO2 VBG pO2 VBG HCO3 VBG O2 Saturation VBG Base Excess Sodium 138 Potassium 4.2 Chloride 108 Carbon Dioxide 25 Anion Gap 9 L BUN 15 Creatinine 0.84 Estim Creat Clear Calc 59.1 Estimated GFR > 60 POC Glucose Random Glucose Fasting Glucose 123 H Lactic Acid 1.2 Calcium 7.9 L Phosphorus Total Bilirubin AST ALT Alkaline Phosphatase C-Reactive Protein Total Protein Albumin Blood Type Antibody Screen Crossmatch 03/02/21 03/03/21 03/03/21 23:21 05:15 05:15 WBC 23.4 H RBC 3.36 L Hgb 8.2 L Hct 28.1 L MCV 83.6 MCH 24.4 L MCHC 29.2 L RDW 15.9 Plt Count 310 MPV 9.3 L Immature Gran % (Auto) 0.5 H Neut % (Auto) 90.6 H Lymph % (Auto) 3.3 L Dale % (Auto) 5.4 Eos % (Auto) 0.0 Baso % (Auto) 0.2 Lymph # (Auto) 0.8 L Dale # (Auto) 1.3 H Eos # (Auto) 0.0 Baso # (Auto) 0.0 Abs Immat Gran (auto) 0.11 H Absolute Neuts (auto) 21.17 H Absolute Nucleated RBC 0.000 Nucleated RBC % (auto) 0.0 Smear Tech's Comments O2 Saturation ABG pH at Pt Temp ABG pH (Temp Correct) ABG pCO2 at Pt Temp ABG pCO2 (Temp Corrct ABG pO2 at Pt Temp ABG pO2 (Temp Correct ABG HCO3 ABG Base Excess (Actual) VBG pH 7.15 L* VBG pCO2 75 VBG pO2 68 VBG HCO3 26 VBG O2 Saturation 85.0 VBG Base Excess -2.9 Sodium 138 Potassium 4.9 Chloride 107 Carbon Dioxide 24 Anion Gap 12 BUN 16 Creatinine 0.88 Estim Creat Clear Calc 58.4 Estimated GFR > 60 POC Glucose Random Glucose 102 Fasting Glucose Lactic Acid Calcium 7.7 L Phosphorus 5.9 H Total Bilirubin 0.3 AST 16 ALT 12 Alkaline Phosphatase 42 D C-Reactive Protein 10.18 H Total Protein 5.7 L Albumin 3.2 L Blood Type Antibody Screen Crossmatch 03/03/21 03/03/21 03/03/21 05:16 09:03 11:57 WBC RBC Hgb Hct MCV MCH MCHC RDW Plt Count MPV Immature Gran % (Auto) Neut % (Auto) Lymph % (Auto) Dale % (Auto) Eos % (Auto) Baso % (Auto) Lymph # (Auto) Dale # (Auto) Eos # (Auto) Baso # (Auto) Abs Immat Gran (auto) Absolute Neuts (auto) Absolute Nucleated RBC Nucleated RBC % (auto) Smear Tech's Comments O2 Saturation ABG pH at Pt Temp ABG pH (Temp Correct) ABG pCO2 at Pt Temp ABG pCO2 (Temp Corrct ABG pO2 at Pt Temp ABG pO2 (Temp Correct ABG HCO3 ABG Base Excess (Actual) VBG pH 7.17 L* 7.23 L 7.32 VBG pCO2 73 57 43 VBG pO2 56 62 50 VBG HCO3 27 H 24 22 VBG O2 Saturation 81.0 88.0 82.0 VBG Base Excess -2.1 -3.0 -3.3 Sodium Potassium Chloride Carbon Dioxide Anion Gap BUN Creatinine Estim Creat Clear Calc Estimated GFR POC Glucose Random Glucose Fasting Glucose Lactic Acid Calcium Phosphorus Total Bilirubin AST ALT Alkaline Phosphatase C-Reactive Protein Total Protein Albumin Blood Type Antibody Screen Crossmatch 03/03/21 03/03/21 11:58 11:58 WBC 22.6 H RBC 3.13 L Hgb 7.7 L Hct 25.8 L MCV 82.4 MCH 24.6 L MCHC 29.8 L RDW 16.1 H Plt Count 297 MPV 9.3 L Immature Gran % (Auto) 0.7 H Neut % (Auto) 85.5 H Lymph % (Auto) 6.4 L Dale % (Auto) 7.0 Eos % (Auto) 0.3 Baso % (Auto) 0.1 Lymph # (Auto) 1.4 Dale # (Auto) 1.6 H Eos # (Auto) 0.1 Baso # (Auto) 0.0 Abs Immat Gran (auto) 0.16 H Absolute Neuts (auto) 19.34 H Absolute Nucleated RBC 0.000 Nucleated RBC % (auto) 0.0 Smear Tech's Comments VERIFIED O2 Saturation ABG pH at Pt Temp ABG pH (Temp Correct) ABG pCO2 at Pt Temp ABG pCO2 (Temp Corrct ABG pO2 at Pt Temp ABG pO2 (Temp Correct ABG HCO3 ABG Base Excess (Actual) VBG pH VBG pCO2 VBG pO2 VBG HCO3 VBG O2 Saturation VBG Base Excess Sodium 136 Potassium 4.4 Chloride 108 Carbon Dioxide 22 Anion Gap 10 L BUN 18 H Creatinine 0.86 Estim Creat Clear Calc 59.7 Estimated GFR > 60 POC Glucose Random Glucose 114 Fasting Glucose Lactic Acid Calcium 7.5 L Phosphorus Total Bilirubin AST ALT Alkaline Phosphatase C-Reactive Protein Total Protein Albumin Blood Type Antibody Screen Crossmatch Procedures Date of Service Date of Service: 03/03/21 Progress Note: A&P Assessment and plan (1) Aspiration pneumonitis: Status: Acute Assessment and Plan: see below Assessment and Plan: s/p egd with aspiration may have some gi blood loss from ulcer at anastamosis. EGD yesterday did show some retained food/liquid in stomach which was washed and suctioned. Continue supportive care, ppi. discussed with RN and MD Fall Risk Details Current Medications: Current Medications Albuterol Sulfate (Albuterol Sulfate (0.083%) 2.5 Mg/3 Ml Vial.Neb) 2.5 mg INHALE ONCE PRN PRN Reason: Shortness of Breath/Wheezing Albuterol/Ipratropium (Albuterol/Iprat 2.5/0.5mg 3 Ml Ampul.Neb) 3 ml INHALE RQ4H WHILE AWAKE [facility] Last Admin: 03/03/21 11:18 Dose: 3 ml Documented by: Brimonidine Tartrate (Brimonidine Tartrate 0.2% Oph 5 Ml Bottle) 1 drop EYE-BOTH TID ALISSA Last Admin: 03/03/21 14:09 Dose: 1 drop Documented by: Chlorhexidine Gluconate (Chlorhexidine Gluc Oral Rinse 15 Ml Mouthwash) 15 ml BUCCAL TID [facility] Last Admin: 03/03/21 14:09 Dose: 15 ml Documented by: Dorzolamide HCl (Dorzolamide Hcl 2 % Ophth Liv 10 Ml Drpbtl) 1 drop EYE-BOTH TID [facility] Last Admin: 03/03/21 14:09 Dose: 1 drop Documented by: Dextrose/Lactated Ringer's (D5lr) 1,000 mls @ 100 mls/hr IVCONT .Q10H [facility] Last Infusion: 03/03/21 08:54 Dose: Infused Documented by: Piperacillin Sod/Tazobactam (Sod 4.5 gm/ Sodium Chloride) 100 mls @ 200 mls/hr IV Q6H [facility] Last Infusion: 03/03/21 13:29 Dose: Infused Documented by: Propofol (Diprivan) 1,000 mg in 100 mls @ 0 mls/hr IVCONT .Q0M [facility]; Protocol Last Admin: 03/03/21 10:58 Dose: 30 mcg/kg/min, 11.1 mls/hr Documented by: Fentanyl (Sublimaze/Ns) 1,000 mcg in 100 mls @ 0 mls/hr IVCONT .Q0M [facility]; Protocol Last Titration: 03/03/21 08:54 Dose: 75 mcg/hr, 7.5 mls/hr Documented by: Phenylephrine HCl 20 mg/ (Sodium Chloride) 252 mls @ 0 mls/hr IVCONT .Q0M [facility]; Protocol Last Titration: 03/03/21 14:38 Dose: 1 mcg/kg/min, 46.64 mls/hr Documented by: Cisatracurium Besylate 100 mg/ (Sodium Chloride) 50 mls @ 3.701 mls/hr IVCONT .Q62M80V [facility]; Protocol Last Admin: 03/03/21 10:58 Dose: 1 mcg/kg/min, 1.85 mls/hr Documented by: Vasopressin 20 unit/ Sodium (Chloride) 101 mls @ 12.12 mls/hr IVCONT .Q8H20M [facility] Last Admin: 03/03/21 09:05 Dose: 0.04 unit/min, 12.12 mls/hr Documented by: Latanoprost (Latanoprost 0.005 % Ophth Liv 2.5 Ml Drops) 1 drop EYE-BOTH BEDTIME [facility] Naloxone HCl (Naloxone Hcl 0.4 Mg/Ml Vial) 0.2 mg IVPUSH Q2M PRN PRN Reason: Excessive sedation or RR < 8 Pantoprazole Sodium (Pantoprazole Sodium 40 Mg/10 Ml Vial) 40 mg IVPUSH BID@0630,1630 [facility] Last Admin: 03/03/21 05:08 Dose: 40 mg Documented by: Time Spent With Patient Time: Total time spent is greater than 50% in coordination of care (as documented) at patient's floor/unit and/or counseling patient: Time with patient: less than 15 minutes Quality Stroke Does the patient have a stroke diagnosis?: No VTE Prior VTE?: No VTE Risk Level:: Medical - moderate - high VTE Device Contraindication: N/A - Device Ordered VTE Drug Contraindication: Treatment Not Tolerated
[2021-03-03] MEDS: fentaNYL citrate/NS 1,000 MCG/100 ML PLAST..BAG 7.5 MCG IVCONT (16:25)
--- NOTE | 2021-03-03 16:27 | MHC.CM.PN ---
Attempted to meet with patient in regards to discharge planning. Patient is currently intubated/vented. Patient came to [facility] for a endoscopy. Patient found to have aspirated. Patient is a [facility] resident of [facility]. Spoke with patient's son/HCP, Jensen via telephone at [phone]. IMM explained and sent to Jensen via certified mail. Anticipate patient will return to [facility] via S when medically stable. Continue to monitor for d/c needs.
[2021-03-03 16:56] LABS: Venous Blood Gas Refer to POC result
[2021-03-03] MEDS: propofoL 1,000 MG/100 ML VIAL 7.4 MG IVCONT (19:16)
[2021-03-03] MEDS: Latanoprost 0.005 % Ophth Sol 2.5 ML DROPS 1 DROP EYE-BOTH (21:43)
[2021-03-03 23:47] LABS: ABG Base Excess -3.3 mmol/L; ABG HCO3 22 mmol/L (22-26); ABG pCO2 40 mmHg (32-45); ABG pCO2 TC 42 mmHg (32-45); ABG pH 7.34 (7.35-7.45); ABG pH TC 7.32 (7.35-7.45); ABG pO2 76 mmHg (83-108); ABG pO2 TC 83 (83-108)
[2021-03-04] VITALS (35 sets, daily range): BP systolic 94–133; BP diastolic 38–62; PULSE 1–95; RESP 18–22; TEMP 37.5–37.9; O2SAT 6–98; BMI 23.9
[2021-03-04] MEDS: Piperacillin Sodium/Tazobactam 4.5 GM in 0.9 % Sodium Chloride 100 ML IV ×4 (00:16→19:46)
[2021-03-04] MEDS: propofoL 1,000 MG/100 ML VIAL 14.81 MG IVCONT ×3 (00:16→13:50)
[2021-03-04 00:36] LABS: ABG Refer to POC result
[2021-03-04] MEDS: fentaNYL citrate/NS 1,000 MCG/100 ML PLAST..BAG 10 MCG IVCONT ×3 (01:38→21:52)
[2021-03-04] MEDS: Phenylephrine HCL 20 MG in 0.9 % Sodium Chloride 250 ML 46.64 MG IVCONT ×2 (01:38→06:35)
[2021-03-04] MEDS: Pantoprazole Sodium 40 MG/10 ML VIAL IVPUSH ×2 (05:30→15:44)
[2021-03-04 05:35] LABS: VBG Base Excess -1.6 mmol/L; VBG HCO3 23 mmol/L (22-26); VBG pCO2 38 mmHg; VBG pH 7.38 (7.32-7.43); VBG pO2 39 mmHg
[2021-03-04 05:43] LABS: MANUAL DIFF FLAG NO
[2021-03-04 05:48] LABS: Basophils Absolute Auto 0.1 X10*3/uL (0.0-0.2); Basophils Percent Auto 0.4 % (0-2); Eosinophils Absolute Auto 0.4 X10*3/uL (0.0-0.4); Eosinophils Percent Auto 2.6 % (0-4); Hematocrit 22.5 % (42.0-52.0); Imm Gran Abs Auto 0.09 X10*3/uL (0.00-0.03); Imm Gran Pct Auto 0.6 % (0.0-0.4); Lymphocytes Absolute Auto 1.1 X10*3/uL (1.2-4.9); Lymphocytes Percent Auto 7.7 % (20-40); Mean Corpuscular HGB Conc 30.2 g/dl (31.0-36.0); Mean Corpuscular Hemoglobin 24.5 pg (27.0-33.0); Mean Corpuscular Volume 81.2 fL (80.0-98.0); Mean Platelet Volume 10.1 fL (9.4-12.4); Monocytes Absolute Auto 1.5 X10*3/uL (0.1-1.2); Monocytes Percent Auto 10.2 % (2-11); Neutrophils Absolute Auto 11.28 x10*3/uL (2.0-8.3); Neutrophils Percent Auto 78.5 % (45-73); Platelet Count 286 X10*3/uL (160-400); Red Blood Count 2.77 X10*6/uL (4.60-5.80); Red Cell Distribution Width 16.3 % (11.0-16.0); White Blood Count 14.4 X10*3/uL (4.8-10.8)
[2021-03-04 05:53] LABS: Hemoglobin 6.8 g/dl (14.0-18.0)
[2021-03-04 05:58] LABS: Venous Blood Gas Refer to POC result
[2021-03-04 06:07] LABS: Alanine Aminotransferase 48 U/L (0-40); Albumin Level 2.8 g/dL (3.5-5.0); Alkaline Phosphatase 43 U/L (39-117); Anion Gap 10 (12-20); Aspartate Amino Transferase 43 U/L (5-37); Bilirubin Total 0.2 mg/dL (0.0-1.0); Blood Urea Nitrogen 24 mg/dL (9-16); Calcium 7.7 mg/dL (8.4-10.2); Carbon Dioxide 23 mmol/L (22-29); Chloride 109 mmol/L (96-108); Creatinine Clr Calc Pharmacy 56.4; Estimated Glomerular Filt Rate > 60; Glucose Random 152 mg/dL (60-115); Potassium 4.2 mmol/L (3.3-5.1); Sodium 138 mmol/L (135-145); Total Protein 5.2 g/dL (6.5-8.0)
[2021-03-04] MEDS: Chlorhexidine Gluc Oral Rinse 15 ML MOUTHWASH BUCCAL ×3 (07:54→21:52)
[2021-03-04] MEDS: Brimonidine Tartrate 0.2% Oph 5 ML BOTTLE 1 DROP EYE-BOTH ×3 (07:54→21:52)
[2021-03-04] MEDS: Albuterol/Iprat 2.5/0.5MG 3 ML AMPUL.NEB INHALE ×4 (08:19→19:41)
[2021-03-04] MEDS: Dorzolamide HCl 2 % Ophth Sol 10 ML DRPBTL 1 DROP EYE-BOTH ×3 (08:51→21:52)
[2021-03-04] MEDS: KCl 20 mEq in 5% Dex/0.45% Sod 20 MEQ/1,000 ML IV.SOLN 100 MEQ IVCONT ×2 (09:21→19:51)
--- NOTE | 2021-03-04 11:48 | MHC.CLN ---
Addendum entered by Niurka Garvin, LEO 03/04/21 11:58: AGREE WITH PROVIDER'S ASSESSMENT BELOW Original Note: F/U PT IS MODERATELY MALNOURISHED PT IS DAY 3 OF NPO IF TPN NEEDED RECOMMEND: DAY ONE: D15 AA5% AT 30ML/HR TO PROVIDE 511KCALS (901 KCALS WITH SEDATION), 36G PROTEIN DAY TWO: H73TI29% AT 50 ML/HOUR TO PROVIDE 852 KCALS (1242 KCALS WITH SEDATION), 60G PROTEIN DAY THREE: H52EV25% AT 70ML/HOUR TO PROVIDE 1193 KCALS (1583 KCALS WITH SEDATION), 84G PROTEIN FRAGILE SKIN WITH REDNESS-MONITOR CLOSELY
[2021-03-04] MEDS: Phenylephrine HCL 20 MG in 0.9 % Sodium Chloride 250 ML 23.32 MG IVCONT (13:55)
--- NOTE | 2021-03-04 14:04 | P.CNHO_ITS ---
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 2. Anemia. 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 HPI - Consult Narrative Reason for consult: Consult for: Gastric carcinoma. Narrative: Jad Webster is a pleasant 80 year old gentleman, developed subacute GI blood loss anemia as well as early satiety and weight loss and upper abdominal pain and had upper endoscopy noting an anastomotic ulcer with outlet obstruction significant gastric distension and probable active bleeding biopsies were taken but there was witnessed aspiration as a complication requiring him to be intubated. Currently on propofol breathing comfortably he has got positive the neck veins and he has adequate bilateral carotid upstrokes in sinus rhythm. Bedside echo shows normal LV and RV size and systolic function with globally nor mal wall motion No primary valve or pericardial disease No measurable pulmonary hypertension And IVC diameter was normal with inspiratory collapse so clearly still room for IV fluid. Chief Complaint: Witnessed aspiration with acute hypoxemic respiratory failure Past medical history: Status post Billroth II procedure Significant eosinophilia. COPD: he has got extensive interstitial fibrosis. Review of Systems - Constitutional Reports system reviewed and no additional complaints, except as documented, Reports anorexia, Reports chills, Reports fatigue, Reports fever(s), Reports weakness, Reports weight loss - Eyes Reports system reviewed and no additional complaints, except as documented - ENT Reports system reviewed and no additional complaints, except as documented - Cardiovascular Reports system reviewed and no additional complaints, except as documented - Respiratory Reports no additional respiratory complaints, Reports dyspnea Comments: Status post intubation - Gastrointestinal Reports system reviewed and no additional complaints, except as documented, Reports abdominal pain, Reports belching, Reports bloating - Genitourinary Genitourinary: Reports no additional male genitourinary complaints - Musculoskeletal Reports system reviewed and no additional complaints, except as documented - Integumentary/Breasts Skin/Breast: Reports no additional skin complaints - Neurologic Reports system reviewed and no additional complaints, except as documented - Psychiatric Reports system reviewed and no additional complaints, except as documented - Endocrine Reports no additional endocrine complaints - Hematologic/Lymphatic Reports system reviewed and no additional complaints, except as documented - Allergic/Immunologic Reports system reviewed and no additional complaints, except as documented Oncology Screenings - ECOG Performance Status ECOG Performance Status: 2 [facility] Medical History: Medical History (Last Updated 03/12/21 @ 10:54 by Eladia Hay MD) Acute cor pulmonale without pulmonary embolism Acute respiratory failure without hypercapnia Anemia Aspiration pneumonitis COPD (chronic obstructive pulmonary disease) COPD (chronic obstructive pulmonary disease) Depressed Diabetes Elevated cholesterol Gastric carcinoma GERD (gastroesophageal reflux disease) Glaucoma History of ETOH abuse HTN (hypertension) Moderate protein-calorie malnutrition Oxygen dependent Peptic anastomotic ulcer Peptic ulcer Resides in halfway facility Stomach cancer Upper GI bleeding Functional capacity: uses cane/walker Patient : No Surgical History: Surgical History (Last Reviewed 03/08/21 @ 13:08 by Zhane Malloy MD) H/O Billroth II operation Surgical history unknown Social History: Social History (Last Reviewed 03/08/21 @ 13:08 by Zhane Malloy MD) Living Situation History: Household Members Other:: resides in SNF Housing: Senior Living Housing Other:: [facility] Are you a primary healthcare administrator to a significant other at home: No Do you presently have visiting nurse or other home services: No Alcohol History: Unable to assess alcohol history related to: Unknown Alcohol History Details: Alcohol intake frequency: former alcohol drinker Tobacco History: Patient Tobacco Use Status: Tobacco use Unknown Advance Directives: Advance Directives Date on File: 09/04/20 Occupation Assessmet: service: No Current occupational status: disabled Home Medications and Allergies Current Medications: Current Medications Albuterol Sulfate (Albuterol Sulfate (0.083%) 2.5 Mg/3 Ml Vial.Neb) 2.5 mg INHALE ONCE PRN PRN Reason: Shortness of Breath/Wheezing Albuterol/Ipratropium (Albuterol/Iprat 2.5/0.5mg 3 Ml Ampul.Neb) 3 ml INHALE RQ4H WHILE AWAKE REPLACED BY [facility] Last Admin: 03/04/21 12:05 Dose: 3 ml Documented by: Brimonidine Tartrate (Brimonidine Tartrate 0.2% Oph 5 Ml Bottle) 1 drop EYE- BOTH TID REPLACED BY [facility] Last Admin: 03/04/21 07:54 Dose: 1 drop Documented by: Chlorhexidine Gluconate (Chlorhexidine Gluc Oral Rinse 15 Ml Mouthwash) 15 ml BUCCAL TID REPLACED BY [facility] Last Admin: 03/04/21 07:54 Dose: 15 ml Documented by: Dorzolamide HCl (Dorzolamide Hcl 2 % Ophth Liv 10 Ml Drpbtl) 1 drop EYE-BOTH TID [facility] Last Admin: 03/04/21 08:51 Dose: 1 drop Documented by: Piperacillin Sod/Tazobactam (Sod 4.5 gm/ Sodium Chloride) 100 mls @ 200 mls/hr IV Q6H REPLACED BY [facility] Last Admin: 03/04/21 13:37 Dose: 200 mls/hr Documented by: Propofol (Diprivan) 1,000 mg in 100 mls @ 0 mls/hr IVCONT .Q0M [facility]; Protocol Last Titration: 03/04/21 10:49 Dose: 40 mcg/kg/min, 14.81 mls/hr Documented by: Fentanyl (Sublimaze/Ns) 1,000 mcg in 100 mls @ 0 mls/hr IVCONT .Q0M [facility]; Protocol Last Admin: 03/04/21 13:32 Dose: 100 mcg/hr, 10 mls/hr Documented by: Phenylephrine HCl 20 mg/ (Sodium Chloride) 252 mls @ 0 mls/hr IVCONT .Q0M REPLACED BY [facility]; Protocol Last Titration: 03/04/21 08:54 Dose: 0.5 mcg/kg/min, 23.32 mls/hr Documented by: Cisatracurium Besylate 100 mg/ (Sodium Chloride) 50 mls @ 3.701 mls/hr IVCONT .[id number] REPLACED BY [facility]; Protocol Last Infusion: 03/04/21 13:27 Dose: Infused Documented by: Vasopressin 20 unit/ Sodium (Chloride) 101 mls @ 12.12 mls/hr IVCONT .Q8H20M REPLACED BY [facility] Last Admin: 03/04/21 07:50 Dose: 0.04 unit/min, 12.12 mls/hr Documented by: Potassium Chloride/Dextrose/Sod Cl () 20 meq in 1,000 mls @ 100 mls/hr IVCONT .Q10H REPLACED BY [facility] Last Admin: 03/04/21 09:21 Dose: 100 mls/hr Documented by: Latanoprost (Latanoprost 0.005 % Ophth Liv 2.5 Ml Drops) 1 drop EYE-BOTH BEDTIME REPLACED BY [facility] Last Admin: 03/03/21 21:43 Dose: 1 drop Documented by: Naloxone HCl (Naloxone Hcl 0.4 Mg/Ml Vial) 0.2 mg IVPUSH Q2M PRN PRN Reason: Excessive sedation or RR < 8 Pantoprazole Sodium (Pantoprazole Sodium 40 Mg/10 Ml Vial) 40 mg IVPUSH BID@0630,5070 REPLACED BY [facility] Last Admin: 03/04/21 05:30 Dose: 40 mg Documented by: Home Medications Medication Instructions Recorded Confirmed Type bisacodyl 5 mg tablet,delayed 5 mg PO QAM 02/26/21 02/26/21 History release (Dulcolax (bisacodyl)) brimonidine 0.2 % eye drops 1 drp OPHTHALMIC (EYE) TID 02/26/21 02/26/21 History cetirizine 10 mg tablet 10 mg PO QAM 02/26/21 02/26/21 History dorzolamide 2 % eye drops 1 drp OPHTHALMIC (EYE) TID 02/26/21 02/26/21 History ergocalciferol (vitamin D2) 1,250 1,250 mcg PO QMONTH 02/26/21 02/26/21 History mcg (50,000 unit) capsule (Vitamin D2) ferrous sulfate 325 mg (65 mg 325 mg PO BID 02/26/21 02/26/21 History iron) tablet fluticasone 500 mcg-salmeterol 50 1 inh INHALATION BID 02/26/21 02/26/21 History mcg/dose blistr powdr for inhalation (Wixela Inhub) lactulose 10 gram/15 mL oral 30 ml PO TID 02/26/21 02/26/21 History solution latanoprost 0.005 % eye drops 1 drp OPHTHALMIC (EYE) QPM 02/26/21 02/26/21 History (Xalatan) pantoprazole 40 mg tablet,delayed 40 mg PO BID 02/26/21 02/26/21 History release polyethylene glycol 3350 17 gram 17 g PO QAM 02/26/21 02/26/21 History oral powder packet (Miralax) sertraline 50 mg tablet 50 mg PO QAM 02/26/21 02/26/21 History trazodone 50 mg tablet 150 mg PO BEDTIME 02/26/21 02/26/21 History umeclidinium 62.5 mcg/actuation 1 inh INHALATION QAM 02/26/21 02/26/21 History blister powder for inhalation (Incruse Ellipta) Allergies Allergy/AdvReac Type Severity Reaction Status Date / Time cinnamon Allergy Angioedema Verified 03/02/21 09:43 Physical Exam Vital signs: Vital Signs Temp 99.5 F 03/04/21 13:00 Pulse 92 03/04/21 13:00 Resp 18 03/04/21 13:00 BP 123/49 L 03/04/21 13:00 Pulse Ox 90 L 03/04/21 13:00 Intake & Output 03/03/21 03/04/21 03/04/21 18:59 06:59 18:59 Intake Total 1044.431 / 2341.301 1296.870 / 2341.301 808.036 / 808.036 Output Total 457 / 1092 600 / 1092 214 / 214 Balance 587.431 / 1249.301 696.870 / 1249.301 594.036 / 594.036 Urine Output (Average ml/kg/hr) 0.53 0.74 0.26 Intake: Intake (Blood Product) Amount 0 / 0 350 / 350 Red Blood Cells (E0336) Unit 0 / 0 350 / 350 [id number] Intake, IV Amount 1044.431 / 2341.301 1296.870 / 2341.301 458.036 / 458.036 Piperacillin Sodium/Tazobactam 200 / 400 200 / 400 100 / 100 4.5 gm In 0.9 % Sodium Chloride 100 ml @ 200 mls/hr IV Q6H [facility] Rx#:[id number] Cisatracurium Besylate 100 mg 30.926 / 30.926 0 / 0 In 0.9 % Sodium Chloride 40 ml @ 2 MCG/KG/MIN 3.701 mls/hr IVCONT .[id number] [facility] Rx#: [id number] Dextrose 5 % and Lactated Ring 0 / 0 1,000 ml @ 100 mls/hr IVCONT . Q10H [facility] Rx#:[id number] Phenylephrine HCL 20 mg In 0.9 574.721 / 1234.190 659.469 / 1234.190 108.049 / 108.049 % Sodium Chloride 250 ml @ Per Protocol IVCONT .Q0M [facility] Rx#: [id number] Vasopressin 20 unit In 0.9 % 79.992 / 173.518 93.526 / 173.518 101 / 101 Sodium Chloride 100 ml @ 0.04 UNIT/MIN 12.12 mls/hr IVCONT . Q8H20M [facility] Rx#:[id number] fentaNYL citrate/NS 1,000 mcg 94.042 / 179.667 85.625 / 179.667 100.000 / 100.000 In 100 ml @ Per Protocol IVCONT .Q0M [facility] Rx#:[id number] propofoL 1,000 mg In 100 ml @ 64.75 / 323.000 258.250 / 323.000 48.987 / 48.987 Per Protocol IVCONT .Q0M [facility] Rx #:[id number] Output: Output, Urine Amount (Catheter) 457 / 1092 600 / 1092 214 / 214 Urethral 457 / 1092 600 / 1092 214 / 214 Other: Urine Color Concentrated Weight 72 kg 67.3 kg [place] Weight in Grams 72243 Weight 67.3 kg Hem/Onc Consult Result - Labs CBC & Chem 7: 03/11/21 05:23 03/12/21 05:21 Labs: Short CBC 03/04/21 Range/Units 05:17 WBC 14.4 H (4.8-10.8) X10*3/uL Hgb 6.8 L* (14.0-18.0) g/dl Hct 22.5 L (42.0-52.0) % Plt Count 286 (160-400) X10*3/uL BMP 03/04/21 05:30 Sodium 138 Potassium 4.2 Chloride 109 H Carbon Dioxide 23 BUN 24 H Creatinine 0.91 Calcium 7.7 L Liver Function 03/04/21 Range/Units 05:30 Total Bilirubin 0.2 (0.0-1.0) mg/dL AST 43 H D (5-37) U/L ALT 48 H (0-40) U/L Alkaline Phosphatase 43 (39-117) U/L Albumin 2.8 L (3.5-5.0) g/dL Assessment and Plan Patient Active problem list reviewed?: Yes (1) Gastric carcinoma Status: Inactive Assessment and plan: 80-year-old gentleman, with history of anemia and GI upset. Status post EGD with aspiration. Preliminary pathology report raise concern for adenocarcinoma of the gastric outlet. Anemia is most likely due to gastric carcinoma however, he May have some gi blood loss from ulcer at anastamosis. EGD yesterday did show some retained food/liquid in stomach which was washed and suctioned. PLAN: I will wait for the final results of the pathology, to make further recommendations. He will need a staging workup. Then decide if he is a candidate for surgery versus chemotherapy. In the meantime he will receive blood transfusion. Continue supportive care, ppi. Thank you, CC: Dr. Hammer. Dr. Cook. Addendum: Pathology from the anastomosis: Superficial fragments of adenocarcinoma. H pylori I positive. Patient does appear to be improving. PLAN: Will schedule him for a PET scan for staging, as an outpatient, once he has recovered. I will make further recommendations based upon the results. - Time Spent With Patient Time Spent with Patient (in minutes): 30
--- NOTE | 2021-03-04 14:33 | PC.NURSE ---
tmax 99.9, VSS on neosynephrine and vasopressin gtt Sedation vacation trialed, pt unable to follow commands, increase RR and HR. Pt opens eyes to voice, unable to follow commands, sedated on propfolol and fentanyl. LS clear, large amounts of rose inline secretions noted. Vent settings remain the same Redness on buttocks, barrier cream applied, repo q2hr, prevalon mattress used Family updated by MD by telephone.
--- NOTE | 2021-03-04 16:03 | PM.CCPN ---
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 just to worsen the prognosis and I explained this to his healthcare proxy son Minutes ventilatory requirements are that is slightly diminished and FiO2 remains between 40 and 45% and we did stop his sedation he woke up but without significant cognitive function so he was recent dated and will rest him another day and try again and I explained this to the family but I said that the though getting him off the vent might be accomplished in in this circumstance were still facing a very poor future prognostically given the presence of the carcinoma and especially its location We await an opinion from Oncology about follow-up therapy but his candidacy for surgeries very poor Critical Care Time (minutes): 45 Physical Exam Vital Signs: Vital Signs: Last Vital Signs Temp 99.7 F 03/04/21 15:59 Pulse 73 03/04/21 15:59 Resp 20 03/04/21 15:59 BP 106/50 L 03/04/21 15:59 Pulse Ox 93 03/04/21 15:59 Body Mass Index 23.9 He did awaken moving all 4 extremities but did not have cognitive function Cardiac exam by bedside echo basically class 1 LV and RV function but interestingly my got a 4 m jet across the tricuspid valve giving us a a probable pulmonary artery systolic pressure of about 75 mm Hg so we dealing with very severe near systemic levels of pulmonary hypertension and I would not be surprised if this isn't the predominantly failing organ in this situation but nonetheless we still require pressor support from vasopressin and small dose of phenylephrine Abdomen is benign soft no palpable organomegaly CVP averaging about 6-7 Skin is intact Objective Data Labs CBC & Chem 7: 03/04/21 05:17 03/04/21 05:30 Labs: Laboratory Results - last 24 hr 03/02/21 03/03/21 03/04/21 20:59 23:41 05:17 WBC 14.4 H RBC 2.77 L Hgb 6.8 L* Hct 22.5 L MCV 81.2 MCH 24.5 L MCHC 30.2 L RDW 16.3 H Plt Count 286 MPV 10.1 Immature Gran % (Auto) 0.6 H Neut % (Auto) 78.5 H Lymph % (Auto) 7.7 L [place] % (Auto) 10.2 Eos % (Auto) 2.6 Baso % (Auto) 0.4 Lymph # (Auto) 1.1 L [place] # (Auto) 1.5 H Eos # (Auto) 0.4 Baso # (Auto) 0.1 Abs Immat Gran (auto) 0.09 H Absolute Neuts (auto) 11.28 H Absolute Nucleated RBC 0.000 Nucleated RBC % (auto) 0.0 O2 Saturation 95.0 ABG pH at Pt Temp 7.34 L ABG pH (Temp Correct) 7.32 L ABG pCO2 at Pt Temp 40 ABG pCO2 (Temp Corrct 42 ABG pO2 at Pt Temp 76 L ABG pO2 (Temp Correct 83 ABG HCO3 22 ABG Base Excess (Actual) -3.3 VBG pH VBG pCO2 VBG pO2 VBG HCO3 VBG O2 Saturation VBG Base Excess Sodium Potassium Chloride Carbon Dioxide Anion Gap BUN Creatinine Estim Creat Clear Calc Estimated GFR Random Glucose Calcium Total Bilirubin AST ALT Alkaline Phosphatase Total Protein Albumin Blood Type O Positive Antibody Screen NEGATIVE Crossmatch See Detail 03/04/21 03/04/21 05:30 05:30 WBC RBC Hgb Hct MCV MCH MCHC RDW Plt Count MPV Immature Gran % (Auto) Neut % (Auto) Lymph % (Auto) Ev[place]eline % (Auto) Eos % (Auto) Baso % (Auto) Lymph # (Auto) Ev[place] # (Auto) Eos # (Auto) Baso # (Auto) Abs Immat Gran (auto) Absolute Neuts (auto) Absolute Nucleated RBC Nucleated RBC % (auto) O2 Saturation ABG pH at Pt Temp ABG pH (Temp Correct) ABG pCO2 at Pt Temp ABG pCO2 (Temp Corrct ABG pO2 at Pt Temp ABG pO2 (Temp Correct ABG HCO3 ABG Base Excess (Actual) VBG pH 7.38 VBG pCO2 38 VBG pO2 39 VBG HCO3 23 VBG O2 Saturation 64.0 VBG Base Excess -1.6 Sodium 138 Potassium 4.2 Chloride 109 H Carbon Dioxide 23 Anion Gap 10 L BUN 24 H Creatinine 0.91 Estim Creat Clear Calc 56.4 Estimated GFR > 60 Random Glucose 152 H Calcium 7.7 L Total Bilirubin 0.2 AST 43 H D ALT 48 H Alkaline Phosphatase 43 Total Protein 5.2 L Albumin 2.8 L Blood Type Antibody Screen Crossmatch Microbiology Microbiology Results: Microbiology 03/02/21 23:18 Blood - Central Line Blood Culture - Preliminary No growth after 24 hours. 03/02/21 23:18 Blood - Central Line Blood Culture - Preliminary No growth after 24 hours. Quality Stroke Does the patient have a stroke diagnosis?: No VTE Prior VTE?: No VTE Risk Level:: Medical - moderate - high VTE Device Contraindication: N/A - Device Ordered VTE Drug Contraindication: Treatment Not Tolerated Progress Note: A&P Assessment and plan (1) Gastric carcinoma: Status: Acute (2) COPD (chronic obstructive pulmonary disease): Status: Acute (3) Aspiration pneumonitis: Status: Acute (4) Acute respiratory failure without hypercapnia: Status: Acute (5) Anemia: Status: Acute (6) Upper GI bleeding: Status: Acute (7) Peptic anastomotic ulcer: Status: Acute (8) H/O Billroth II operation: Status: Acute Assessment and Plan: Will continue to monitor his hemoglobin for signs of active bleeding and try to transfuse as sparingly as we possibly can and again will do will try to examine cognitive function in the morning
--- NOTE | 2021-03-04 16:55 | P.PNGI_ITS ---
Subjective Subjective Date of Service: 03/04/21 Interval History: sedated Critical Care Time (minutes): 0 Physical Exam Vital Signs: Vital Signs: Last Vital Signs Temp 99.7 F 03/04/21 15:59 Pulse 1 L 03/04/21 16:04 Resp 20 03/04/21 15:59 BP 106/50 L 03/04/21 15:59 Pulse Ox 93 03/04/21 15:59 Body Mass Index 23.9 GI: Other: abdomen is soft with bowel sounds present Objective Data Labs CBC & Chem 7: 03/04/21 05:17 03/04/21 05:30 Labs: Laboratory Results - last 24 hr 03/02/21 03/03/21 03/04/21 20:59 23:41 05:17 WBC 14.4 H RBC 2.77 L Hgb 6.8 L* Hct 22.5 L MCV 81.2 MCH 24.5 L MCHC 30.2 L RDW 16.3 H Plt Count 286 MPV 10.1 Immature Gran % (Auto) 0.6 H Neut % (Auto) 78.5 H Lymph % (Auto) 7.7 L [place] % (Auto) 10.2 Eos % (Auto) 2.6 Baso % (Auto) 0.4 Lymph # (Auto) 1.1 L [place] # (Auto) 1.5 H Eos # (Auto) 0.4 Baso # (Auto) 0.1 Abs Immat Gran (auto) 0.09 H Absolute Neuts (auto) 11.28 H Absolute Nucleated RBC 0.000 Nucleated RBC % (auto) 0.0 O2 Saturation 95.0 ABG pH at Pt Temp 7.34 L ABG pH (Temp Correct) 7.32 L ABG pCO2 at Pt Temp 40 ABG pCO2 (Temp Corrct 42 ABG pO2 at Pt Temp 76 L ABG pO2 (Temp Correct 83 ABG HCO3 22 ABG Base Excess (Actual) -3.3 VBG pH VBG pCO2 VBG pO2 VBG HCO3 VBG O2 Saturation VBG Base Excess Sodium Potassium Chloride Carbon Dioxide Anion Gap BUN Creatinine Estim Creat Clear Calc Estimated GFR Random Glucose Calcium Total Bilirubin AST ALT Alkaline Phosphatase Total Protein Albumin Blood Type O Positive Antibody Screen NEGATIVE Crossmatch See Detail 03/04/21 03/04/21 05:30 05:30 WBC RBC Hgb Hct MCV MCH MCHC RDW Plt Count MPV Immature Gran % (Auto) Neut % (Auto) Lymph % (Auto) [place] % (Auto) Eos % (Auto) Baso % (Auto) Lymph # (Auto) [place] # (Auto) Eos # (Auto) Baso # (Auto) Abs Immat Gran (auto) Absolute Neuts (auto) Absolute Nucleated RBC Nucleated RBC % (auto) O2 Saturation ABG pH at Pt Temp ABG pH (Temp Correct) ABG pCO2 at Pt Temp ABG pCO2 (Temp Corrct ABG pO2 at Pt Temp ABG pO2 (Temp Correct ABG HCO3 ABG Base Excess (Actual) VBG pH 7.38 VBG pCO2 38 VBG pO2 39 VBG HCO3 23 VBG O2 Saturation 64.0 VBG Base Excess -1.6 Sodium 138 Potassium 4.2 Chloride 109 H Carbon Dioxide 23 Anion Gap 10 L BUN 24 H Creatinine 0.91 Estim Creat Clear Calc 56.4 Estimated GFR > 60 Random Glucose 152 H Calcium 7.7 L Total Bilirubin 0.2 AST 43 H D ALT 48 H Alkaline Phosphatase 43 Total Protein 5.2 L Albumin 2.8 L Blood Type Antibody Screen Crossmatch Microbiology Microbiology Results: Microbiology 03/02/21 23:18 Blood - Central Line Blood Culture - Preliminary No growth after 24 hours. 03/02/21 23:18 Blood - Central Line Blood Culture - Preliminary No growth after 24 hours. 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 special stains pending. agree with continuing supportive care, and obtaining oncology consultation. he will likely have continuing ongoing gi blood loss to some degree, and there are really no good options for endoscopic therapy in this setting. Fall Risk Details Current Medications: Current Medications Albuterol Sulfate (Albuterol Sulfate (0.083%) 2.5 Mg/3 Ml Vial.Neb) 2.5 mg INHALE ONCE PRN PRN Reason: Shortness of Breath/Wheezing Albuterol/Ipratropium (Albuterol/Iprat 2.5/0.5mg 3 Ml Ampul.Neb) 3 ml INHALE RQ4H WHILE AWAKE [facility] Last Admin: 03/04/21 15:59 Dose: 3 ml Documented by: Brimonidine Tartrate (Brimonidine Tartrate 0.2% Oph 5 Ml Bottle) 1 drop EYE- BOTH TID [facility] Last Admin: 03/04/21 14:46 Dose: 1 drop Documented by: Chlorhexidine Gluconate (Chlorhexidine Gluc Oral Rinse 15 Ml Mouthwash) 15 ml BUCCAL TID [facility] Last Admin: 03/04/21 14:48 Dose: 15 ml Documented by: Dorzolamide HCl (Dorzolamide Hcl 2 % Ophth Liv 10 Ml Drpbtl) 1 drop EYE-BOTH TID [facility] Last Admin: 03/04/21 14:46 Dose: 1 drop Documented by: Piperacillin Sod/Tazobactam (Sod 4.5 gm/ Sodium Chloride) 100 mls @ 200 mls/hr IV Q6H [facility] Last Infusion: 03/04/21 14:07 Dose: Infused Documented by: Propofol (Diprivan) 1,000 mg in 100 mls @ 0 mls/hr IVCONT .Q0M [facility]; Protocol Last Titration: 03/04/21 15:28 Dose: 30 mcg/kg/min, 11.1 mls/hr Documented by: Fentanyl (Sublimaze/Ns) 1,000 mcg in 100 mls @ 0 mls/hr IVCONT .Q0M [facility]; Protocol Last Titration: 03/04/21 15:28 Dose: 100 mcg/hr, 10 mls/hr Documented by: Phenylephrine HCl 20 mg/ (Sodium Chloride) 252 mls @ 0 mls/hr IVCONT .Q0M [facility]; Protocol Last Admin: 03/04/21 13:55 Dose: 0.5 mcg/kg/min, 23.32 mls/hr Documented by: Cisatracurium Besylate 100 mg/ (Sodium Chloride) 50 mls @ 3.701 mls/hr IVCONT .[id number] [facility]; Protocol Last Infusion: 03/04/21 13:27 Dose: Infused Documented by: Vasopressin 20 unit/ Sodium (Chloride) 101 mls @ 12.12 mls/hr IVCONT .Q8H20M [facility] Last Admin: 03/04/21 15:44 Dose: 0.04 unit/min, 12.12 mls/hr Documented by: Potassium Chloride/Dextrose/Sod Cl () 20 meq in 1,000 mls @ 100 mls/hr IVCONT .Q10H [facility] Last Admin: 03/04/21 09:21 Dose: 100 mls/hr Documented by: Latanoprost (Latanoprost 0.005 % Ophth Liv 2.5 Ml Drops) 1 drop EYE-BOTH B EDTIME [facility] Last Admin: 03/03/21 21:43 Dose: 1 drop Documented by: Naloxone HCl (Naloxone Hcl 0.4 Mg/Ml Vial) 0.2 mg IVPUSH Q2M PRN PRN Reason: Excessive sedation or RR < 8 Pantoprazole Sodium (Pantoprazole Sodium 40 Mg/10 Ml Vial) 40 mg IVPUSH BID@0630,1630 [facility] Last Admin: 03/04/21 15:44 Dose: 40 mg Documented by: Time Spent With Patient Time: Total time spent is greater than 50% in coordination of care (as documented) at patient's floor/unit and/or counseling patient: Time with patient: less than 15 minutes Quality Stroke Does the patient have a stroke diagnosis?: No VTE Prior VTE?: No VTE Risk Level:: Medical - moderate - high VTE Device Contraindication: N/A - Device Ordered VTE Drug Contraindication: Treatment Not Tolerated
[2021-03-04] MEDS: Albumin Human 25 % 100 ML IV ×2 (18:44→19:52)
[2021-03-04 19:46] LABS: Hematocrit 23.8 % (42.0-52.0); Hemoglobin 7.4 g/dl (14.0-18.0)
[2021-03-04] MEDS: propofoL 1,000 MG/100 ML VIAL 11.1 MG IVCONT (19:51)
[2021-03-04] MEDS: Latanoprost 0.005 % Ophth Sol 2.5 ML DROPS 1 DROP EYE-BOTH (21:52)
[2021-03-05] VITALS (36 sets, daily range): BP systolic 91–165; BP diastolic 43–83; PULSE 54–128; RESP 13–28; TEMP 29.4–37.9; O2SAT 91–100; BMI 27.9
[2021-03-05] MEDS: Phenylephrine HCL 20 MG in 0.9 % Sodium Chloride 250 ML 11.66 MG IVCONT (02:37)
[2021-03-05] MEDS: Piperacillin Sodium/Tazobactam 4.5 GM in 0.9 % Sodium Chloride 100 ML IV ×4 (02:37→18:06)
[2021-03-05] MEDS: propofoL 1,000 MG/100 ML VIAL 14.81 MG IVCONT (03:15)
[2021-03-05] MEDS: Furosemide 20 MG/2 ML VIAL IVPUSH ×2 (04:00→10:37)
--- NOTE | 2021-03-05 04:03 | PC.NURSE ---
Assumed care from Roselia RAHMAN at 19:00. Patient was initially on 25 propofol and 100 fentanyl gtt, and was restless, bucking ventilator, sitting up in the bed looking uncomfortable. Increased sedation breifly to Propofol 35 and Fentanyl 125, but turned this down immediately. Fentanyl stayed at 100 all night, and propofol oscillated between 30 and 40, and is now at 35. Pupils reactive at 3 mm. Positive cough and gag, moves all extremities. Is not breathing over ventilator. #8 ETT 23 cm eulogio, AC settings: rate 20, TV 600, Peep 5, FIO2 40%. Te: 9-14. SpO2 mostly in the mid to upper 90's with episodes of desattimg to 80's when dysynchronous. Thick creamy secretions to inline, seemed to nearly be plugging, RT notified and irrigated circuit. Appears vaguely dusky, cap refill >2 seconds. BP soft, on vance, titrated from 0.5 to 0.25, well tolerated. Vasopressin continues at 0.04. Patient in NSR on monitor. +JVD, CVP was 12 up to 17, also oliguric with urines down from 30 cc/hr to 18 cc/hour and 10 cc/hour. I&Os are 5.7 liters positive. discussed with PA and new order for 20 mg IV lasix. No diet is ordered. Patient cotinues to be on low intermittent suction to ogt. will discuss with day shift.
[2021-03-05] MEDS: Pantoprazole Sodium 40 MG/10 ML VIAL IVPUSH ×2 (05:14→14:26)
[2021-03-05 05:24] LABS: MANUAL DIFF FLAG NO
[2021-03-05 05:29] LABS: Venous Blood Gas Refer to POC result
[2021-03-05 05:30] LABS: VBG Base Excess -0.8 mmol/L; VBG HCO3 24 mmol/L (22-26); VBG pCO2 43 mmHg; VBG pH 7.35 (7.32-7.43); VBG pO2 50 mmHg
[2021-03-05 05:41] LABS: Basophils Percent Auto 0.2 % (0-2); Eosinophils Absolute Auto 0.5 X10*3/uL (0.0-0.4); Eosinophils Percent Auto 4.4 % (0-4); Hematocrit 23.4 % (42.0-52.0); Imm Gran Abs Auto 0.05 X10*3/uL (0.00-0.03); Imm Gran Pct Auto 0.4 % (0.0-0.4); Lymphocytes Absolute Auto 0.8 X10*3/uL (1.2-4.9); Lymphocytes Percent Auto 6.9 % (20-40); Mean Corpuscular HGB Conc 29.9 g/dl (31.0-36.0); Mean Corpuscular Hemoglobin 24.6 pg (27.0-33.0); Mean Corpuscular Volume 82.1 fL (80.0-98.0); Mean Platelet Volume 9.9 fL (9.4-12.4); Monocytes Percent Auto 8.2 % (2-11); Neutrophils Absolute Auto 9.8 x10*3/uL (2.0-8.3); Neutrophils Percent Auto 79.9 % (45-73); Platelet Count 196 X10*3/uL (160-400); Red Blood Count 2.85 X10*6/uL (4.60-5.80); Red Cell Distribution Width 16.7 % (11.0-16.0); White Blood Count 12.2 X10*3/uL (4.8-10.8)
[2021-03-05 05:54] LABS: Alanine Aminotransferase 56 U/L (0-40); Albumin Level 3.4 g/dL (3.5-5.0); Alkaline Phosphatase 45 U/L (39-117); Anion Gap 9 (12-20); Aspartate Amino Transferase 43 U/L (5-37); Bilirubin Total 0.9 mg/dL (0.0-1.0); Blood Urea Nitrogen 24 mg/dL (9-16); Calcium 7.7 mg/dL (8.4-10.2); Carbon Dioxide 24 mmol/L (22-29); Chloride 107 mmol/L (96-108); Estimated Glomerular Filt Rate > 60; Glucose Random 182 mg/dL (60-115); Potassium 3.4 mmol/L (3.3-5.1); Sodium 137 mmol/L (135-145); Total Protein 5.8 g/dL (6.5-8.0)
[2021-03-05] MEDS: KCl 40 mEq in 5% Dex/0.45% Sod 40 MEQ/1,000 ML IV.SOLN 80 MEQ IVCONT (06:53)
[2021-03-05 06:56] LABS: INTERNATIONAL NORM RATIO 1.1 (0.9-1.1); Prothrombin Time 12.6 SEC (9.9-13.0)
[2021-03-05 06:58] LABS: Partial Thromboplastin Time 30.3 SEC (24.1-38.0)
[2021-03-05] MEDS: Albuterol/Iprat 2.5/0.5MG 3 ML AMPUL.NEB INHALE ×4 (08:22→20:47)
[2021-03-05] MEDS: Chlorhexidine Gluc Oral Rinse 15 ML MOUTHWASH BUCCAL ×3 (08:23→20:56)
[2021-03-05] MEDS: propofoL 1,000 MG/100 ML VIAL 12.96 MG IVCONT ×2 (08:23→19:21)
[2021-03-05] MEDS: Dorzolamide HCl 2 % Ophth Sol 10 ML DRPBTL 1 DROP EYE-BOTH ×3 (08:26→20:56)
[2021-03-05] MEDS: Brimonidine Tartrate 0.2% Oph 5 ML BOTTLE 1 DROP EYE-BOTH ×3 (08:26→20:56)
--- NOTE | 2021-03-05 11:35 | MHC.CM.PN ---
Addendum entered by Rebecca Smith 03/05/21 11:54: Received callback from Honey at [facility]: prior to pts hospitalization, pt was alert, oriented, Ukrainian speaking primarily and ambulatory with a walker. He was independent with ADL's and listed as a full code. Of significance, pt is a LEVEL 3 registered sex offender and should have no contact with children under 18. [facility] is able to accept pt with gastric/jejunem feeding tubes should pt require this. CM to update facility once a care plan has been established. Original Note: Pt continues receiving care in ICU: intubated with plans to trial extubation today. Pt with inoperable gastric outlet malignancy, anemia r/t bleeding, poor po intake. Pt is a LTC resident of [facility] and will return when medically stable. Message left for [facility] Honey KAMARA to review pt's functional ability prior to hospitalization: pt may require a J tube or other nutritional support in addition to a poor prognosis secondary to malignancy. MD has conversed with pt's son and feels he may not grasp the severity of pt's condition and overall prognosis. Per current records, pt is a full code. Will await call back from Honey then contact pt's son for a wound care center consultant assisted discussion of goal of care.
[2021-03-05] MEDS: dexmedeTOMIDidine HCL/NS 400 MCG/100 ML INFUS..BTL IVCONT (12:10)
[2021-03-05] MEDS: Potassium Chloride/H20 20 MEQ/100 ML PIGGYBACK 50 MEQ IV ×2 (12:18→14:21)
--- NOTE | 2021-03-05 13:30 | MHC.CLN ---
Addendum entered by Niurka Garvin, RD 03/05/21 13:51: AGREE WITH PROVIDER'S ASSESSMENT BELOW Original Note: F/U PT IS DAY 4 NPO PLAN IS TO EXTUBATE PT TODAY PER MD IF EXTUBATION IS UNSUCCESSFUL RECOMMEND TUBE FEEDING GLUCERNA AT MAX GOAL RATE 90 ML/HOUR AND 30 ML PROSOURCE ONCE A DAY TO PROVIDE 2200 KCALS, 105 GRAMS PROTEIN AND 1843CC FREE WATER FROM FORMULA WITH 300 CC WATER FLUSH ONCE PER DAY FOR A TOTAL OF 2143 CC FREE WATER IF TPN NEEDED RECOMMEND: DAY ONE: D15AA5% 50 ML/HOUR TO PROVIDE 852 KCALS, 60 GRAMS PROTEIN DAY TWO: D15AA5% 70 ML/HOUR TO PROVIDE 1193 KCALS, 84 GRAMS PROTEIN DAY THREE: D15AA5% 90 ML/HOUR TO PROVIDE 154 KCALS, 108 GRAMS PROTEIN POSSIBLE J-TUBE PLACEMENT PENDING FAMILY DISCUSSION
--- NOTE | 2021-03-05 14:32 | P.CDIC_ITS ---
CDI Concurrent Query Documentation Clarification: PHYSICIAN'S DOCUMENTATION REQUEST Date of Query: 03/05/21 1433 Patient Name: Jad Webster Admit Date: 03/02/21 Dear Doctor, A review of the medical record indicates additional documentation may be needed. Please review below and update the documentation accordingly. Clinical Indicators: Risk Factors/Clinical Indicators/Treatments Per Hem/Onc note 03/04/21: Anemia is most likely due to gastric carcinoma however, he may have some gi blood loss from ulcer at anastamosis Received blood transfusion Based on the above, could you clarify in the Progress Notes which of the following is the most likely type of anemia you are evaluating, treating, and/or monitoring? * Acute blood loss anemia * Acute blood loss anemia with baseline chronic anemia (specify type) * Anemia of chronic disease- indicate if neoplastic disease, CKD, or other * Chronic iron deficiency anemia due to blood loss * Other ? please specify * Unable to determine Use of terms such as suspected, likely, concern for, or probable (associated with a specific diagnosis that is being evaluated, monitored, or treated as if it exists) are acceptable and can be coded in the inpatient setting, when documented at the time of discharge. Thank you, Arabella Carroll RN Extension: [phone] Please use your independent medical judgment in providing your response. THIS QUERY IS PART OF THE PERMANENT MEDICAL RECORD
--- NOTE | 2021-03-05 15:27 | PM.GIPN ---
Subjective Subjective Date of Service: 03/05/21 Interval History: awake, responds to commands Critical Care Time (minutes): 0 Physical Exam Vital Signs: Vital Signs: Last Vital Signs Temp 99.9 F 03/05/21 15:00 Pulse 92 03/05/21 15:00 Resp 18 03/05/21 15:00 BP 93/53 L 03/05/21 15:00 Pulse Ox 95 03/05/21 15:00 Body Mass Index 27.9 GI: Other: abdomen is soft and nontender, bowel sounds present Objective Data Labs CBC & Chem 7: 03/05/21 05:18 03/05/21 05:18 Microbiology Microbiology Results: Microbiology 03/02/21 23:18 Blood - Central Line Blood Culture - Preliminary No growth after 48 hours. 03/02/21 23:18 Blood - Central Line Blood Culture - Preliminary No growth after 48 hours. Procedures Date of Service Date of Service: 03/05/21 Progress Note: A&P Assessment and plan (1) Peptic anastomotic ulcer: Status: Acute Assessment and Plan: appears to be making progress with respect to weaning still has component of gi blood loss from malignancy found at time of EGD. continue ppi. Fall Risk Details Current Medications: Current Medications Albuterol Sulfate (Albuterol Sulfate (0.083%) 2.5 Mg/3 Ml Vial.Neb) 2.5 mg INHALE ONCE PRN PRN Reason: Shortness of Breath/Wheezing Albuterol/Ipratropium (Albuterol/Iprat 2.5/0.5mg 3 Ml Ampul.Neb) 3 ml INHALE RQ4H WHILE AWAKE [facility] Last Admin: 03/05/21 14:10 Dose: 3 ml Documented by: Brimonidine Tartrate (Brimonidine Tartrate 0.2% Oph 5 Ml Bottle) 1 drop EYE-BOTH TID [facility] Last Admin: 03/05/21 14:21 Dose: 1 drop Documented by: Chlorhexidine Gluconate (Chlorhexidine Gluc Oral Rinse 15 Ml Mouthwash) 15 ml BUCCAL TID [facility] Last Admin: 03/05/21 14:26 Dose: 15 ml Documented by: Dorzolamide HCl (Dorzolamide Hcl 2 % Ophth Liv 10 Ml Drpbtl) 1 drop EYE-BOTH TID [facility] Last Admin: 03/05/21 14:22 Dose: 1 drop Documented by: Piperacillin Sod/Tazobactam (Sod 4.5 gm/ Sodium Chloride) 100 mls @ 200 mls/hr IV Q6H [facility] Last Infusion: 03/05/21 13:46 Dose: Infused Documented by: Propofol (Diprivan) 1,000 mg in 100 mls @ 0 mls/hr IVCONT .Q0M ALISSA; Protocol Last Titration: 03/05/21 14:22 Dose: 35 mcg/kg/min, 12.96 mls/hr Documented by: Phenylephrine HCl 20 mg/ (Sodium Chloride) 252 mls @ 0 mls/hr IVCONT .Q0M [facility]; Protocol Last Titration: 03/05/21 08:24 Dose: 0 mcg/kg/min, 0 mls/hr Documented by: Vasopressin 20 unit/ Sodium (Chloride) 101 mls @ 12.12 mls/hr IVCONT .Q8H20M [facility] Last Infusion: 03/05/21 10:30 Dose: 0 unit/min, 0 mls/hr Documented by: Potassium Chloride/Dextrose/Sod Cl () 40 meq in 1,000 mls @ 80 mls/hr IVCONT .[id number] [facility] Last Infusion: 03/05/21 10:30 Dose: 0 mls/hr Documented by: Dexmedetomidine HCl (Precedex) 400 mcg in 100 mls @ 0 mls/hr IVCONT .Q0M [facility]; Protocol Last Titration: 03/05/21 13:46 Dose: 0.4 mcg/kg/hr, 7.85 mls/hr Documented by: Latanoprost (Latanoprost 0.005 % Ophth Liv 2.5 Ml Drops) 1 drop EYE-BOTH BEDTIME [facility] Last Admin: 03/04/21 21:52 Dose: 1 drop Documented by: Naloxone HCl (Naloxone Hcl 0.4 Mg/Ml Vial) 0.2 mg IVPUSH Q2M PRN PRN Reason: Excessive sedation or RR < 8 Pantoprazole Sodium (Pantoprazole Sodium 40 Mg/10 Ml Vial) 40 mg IVPUSH BID@0630,1630 [facility] Last Admin: 03/05/21 14:26 Dose: 40 mg Documented by: Time Spent With Patient Time: Total time spent is greater than 50% in coordination of care (as documented) at patient's floor/unit and/or counseling patient: Time with patient: less than 15 minutes Quality Stroke Does the patient have a stroke diagnosis?: No VTE Prior VTE?: No VTE Risk Level:: Medical - moderate - high VTE Device Contraindication: N/A - Device Ordered VTE Drug Contraindication: Treatment Not Tolerated
--- NOTE | 2021-03-05 15:46 | P.PNCC_ITS ---
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 and he continues to bleed he continues to have intermittent transfusion but the NG aspirate has really diminished greatly so clearly the stomach is not as obstructed as it had been before where was previously very distended with large volume of fluid despite his NPO status He did awaken and he did start to demonstrate some cognitive function locking eyes and nodding to what I was saying to him he seemed to acknowledge but still he was agitated and he spent several hours on pressure support with S superb tidal volume but very high minute ventilation of greater than 20 liters/minute whereby at rest his requirements for about 11-12 liters/minute and with his low end-tidal CO2 I thought this was perhaps just hyperventilation but with that after several hours he finally had some oxygen desaturation into the high 80s clearly developing auto PEEP and at that point it I decided to give him arrest with dexmedetomidine and propofol his heart rate came down and in addition I had also diuresed in based on an elevated CVP in the mid teens and because he was 6 L positive over the last 3 days with which she had nearly a 3 L diuresis and we are but replacing potassium Once he fell asleep and respiratory rate diminished then he stop the auto PEEP and he has a beautifully synchronous now with the ventilator Critical Care Time (minutes): 60 Physical Exam Vital Signs: Vital Signs: Last Vital Signs Temp 99.9 F 03/05/21 15:00 Pulse 92 03/05/21 15:00 Resp 18 03/05/21 15:00 BP 93/53 L 03/05/21 15:00 Pulse Ox 95 03/05/21 15:00 Body Mass Index 27.9 He did awaken with some demonstrated cognitive function and nonfocal neurologically Chest he began to a utilize some accessory muscles and increased diaphragmatic effort with prolonged Expiratory time cardiac exam by bedside echo normal LV function Abdomen soft no organomegaly Skin is intact Objective Data Labs CBC & Chem 7: 03/05/21 05:18 03/05/21 05:18 Labs: Laboratory Results - last 24 hr 03/02/21 03/04/21 03/05/21 20:59 19:13 05:18 WBC 12.2 H RBC 2.85 L Hgb 7.4 L 7.0 L* Hct 23.8 L 23.4 L MCV 82.1 MCH 24.6 L MCHC 29.9 L RDW 16.7 H Plt Count 196 D MPV 9.9 Immature Gran % (Auto) 0.4 Neut % (Auto) 79.9 H Lymph % (Auto) 6.9 L [place] % (Auto) 8.2 Eos % (Auto) 4.4 H Baso % (Auto) 0.2 Lymph # (Auto) 0.8 L [place] # (Auto) 1.0 Eos # (Auto) 0.5 H Baso # (Auto) 0.0 Abs Immat Gran (auto) 0.05 H Absolute Neuts (auto) 9.8 H Absolute Nucleated RBC 0.000 Nucleated RBC % (auto) 0.0 PT INR APTT VBG pH VBG pCO2 VBG pO2 VBG HCO3 VBG O2 Saturation VBG Base Excess Sodium Potassium Chloride Carbon Dioxide Anion Gap BUN Creatinine Estim Creat Clear Calc Estimated GFR Random Glucose Calcium Total Bilirubin AST ALT Alkaline Phosphatase Total Protein Albumin Blood Type O Positive Antibody Screen NEGATIVE Crossmatch See Detail 03/05/21 03/05/21 03/05/21 05:18 05:22 06:40 WBC RBC Hgb Hct MCV MCH MCHC RDW Plt Count MPV Immature Gran % (Auto) Neut % (Auto) Lymph % (Auto) [place] % (Auto) Eos % (Auto) Baso % (Auto) Lymph # (Auto) [place] # (Auto) Eos # (Auto) Baso # (Auto) Abs Immat Gran (auto) Absolute Neuts (auto) Absolute Nucleated RBC Nucleated RBC % (auto) PT 12.6 INR 1.1 APTT 30.3 VBG pH 7.35 VBG pCO2 43 VBG pO2 50 VBG HCO3 24 VBG O2 Saturation 77.0 VBG Base Excess -0.8 Sodium 137 Potassium 3.4 Chloride 107 Carbon Dioxide 24 Anion Gap 9 L BUN 24 H Creatinine 0.87 Estim Creat Clear Calc 59.0 Estimated GFR > 60 Random Glucose 182 H Calcium 7.7 L Total Bilirubin 0.9 AST 43 H ALT 56 H Alkaline Phosphatase 45 Total Protein 5.8 L Albumin 3.4 L D Blood Type Antibody Screen Crossmatch Microbiology Microbiology Results: Microbiology 03/02/21 23:18 Blood - Central Line Blood Culture - Preliminary No growth after 48 hours. 03/02/21 23:18 Blood - Central Line Blood Culture - Preliminary No growth after 48 hours. Quality Stroke Does the patient have a stroke diagnosis?: No VTE Prior VTE?: No VTE Risk Level:: Medical - moderate - high VTE Device Contraindication: N/A - Device Ordered VTE Drug Contraindication: Treatment Not Tolerated Progress Note: A&P Assessment and plan (1) Gastric carcinoma: Status: Acute (2) COPD (chronic obstructive pulmonary disease): Status: Acute (3) Aspiration pneumonitis: Status: Acute (4) Acute respiratory failure without hypercapnia: Status: Acute (5) Anemia: Status: Acute (6) Upper GI bleeding: Status: Acute (7) Peptic anastomotic ulcer: Status: Acute (8) H/O Billroth II operation: Status: Acute Assessment and Plan: Currently recent dated and because of that he required small dose of vasopressin for blood pressure support as his CVP came down below 9 VAC now averaging 6-7 but I doubt I feel that this may expedite his weaning process tomorrow Will send off a surveillance sample of sputum
[2021-03-05 20:26] LABS: Hematocrit 27.3 % (42.0-52.0); Hemoglobin 8.6 g/dl (14.0-18.0)
[2021-03-05] MEDS: Latanoprost 0.005 % Ophth Sol 2.5 ML DROPS 1 DROP EYE-BOTH (20:56)
[2021-03-06] VITALS (33 sets, daily range): BP systolic 104–169; BP diastolic 49–87; PULSE 58–112; RESP 18–29; TEMP 37.3–38.2; O2SAT 86–98; BMI 26.7
[2021-03-06] MEDS: Piperacillin Sodium/Tazobactam 4.5 GM in 0.9 % Sodium Chloride 100 ML IV ×4 (00:47→19:57)
[2021-03-06] MEDS: dexmedeTOMIDidine HCL/NS 400 MCG/100 ML INFUS..BTL IVCONT (00:48)
[2021-03-06] MEDS: propofoL 1,000 MG/100 ML VIAL 12.96 MG IVCONT ×2 (00:48→05:15)
[2021-03-06 05:19] LABS: MANUAL DIFF FLAG NO
[2021-03-06 05:21] LABS: Basophils Absolute Auto 0.1 X10*3/uL (0.0-0.2); Basophils Percent Auto 0.4 % (0-2); Eosinophils Absolute Auto 0.3 X10*3/uL (0.0-0.4); Eosinophils Percent Auto 2.7 % (0-4); Hematocrit 27.6 % (42.0-52.0); Hemoglobin 8.7 g/dl (14.0-18.0); Imm Gran Abs Auto 0.06 X10*3/uL (0.00-0.03); Imm Gran Pct Auto 0.5 % (0.0-0.4); Lymphocytes Absolute Auto 0.9 X10*3/uL (1.2-4.9); Lymphocytes Percent Auto 7.2 % (20-40); Mean Corpuscular HGB Conc 31.5 g/dl (31.0-36.0); Mean Corpuscular Hemoglobin 25.6 pg (27.0-33.0); Mean Corpuscular Volume 81.2 fL (80.0-98.0); Mean Platelet Volume 10.3 fL (9.4-12.4); Monocytes Absolute Auto 1.1 X10*3/uL (0.1-1.2); Neutrophils Absolute Auto 9.5 x10*3/uL (2.0-8.3); Neutrophils Percent Auto 80.2 % (45-73); Platelet Count 210 X10*3/uL (160-400); Red Cell Distribution Width 16.9 % (11.0-16.0); White Blood Count 11.9 X10*3/uL (4.8-10.8)
[2021-03-06 05:32] LABS: Venous Blood Gas Refer to POC result
[2021-03-06 05:33] LABS: VBG Base Excess 2.8 mmol/L; VBG HCO3 26 mmol/L (22-26); VBG pCO2 39 mmHg; VBG pH 7.44 (7.32-7.43); VBG pO2 52 mmHg
[2021-03-06 05:38] LABS: Alanine Aminotransferase 56 U/L (0-40); Albumin Level 3.3 g/dL (3.5-5.0); Alkaline Phosphatase 50 U/L (39-117); Anion Gap 12 (12-20); Aspartate Amino Transferase 36 U/L (5-37); Bilirubin Total 0.9 mg/dL (0.0-1.0); Blood Urea Nitrogen 21 mg/dL (9-16); Calcium 8.1 mg/dL (8.4-10.2); Carbon Dioxide 25 mmol/L (22-29); Chloride 109 mmol/L (96-108); Creatinine Clr Calc Pharmacy 66.8; Estimated Glomerular Filt Rate > 60; Glucose Random 113 mg/dL (60-115); Potassium 3.1 mmol/L (3.3-5.1); Sodium 143 mmol/L (135-145); Total Protein 5.9 g/dL (6.5-8.0)
--- NOTE | 2021-03-06 05:54 | W.MHC.ACPN ---
Advanced Care Planning Note Advanced Care Planning Note Discussed with: other (Son Navid Styles) Time spent (in minutes): 15 Narrative: Late entry of the discussion with the patient's son which took place last night 03/05/2021 at 7:45 p.m. in Maldivian. 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 At this point despite of all the discussions, he would like his father to remain full code for his states that if his father is able to get out of the ICU, they will deal with the cancer part afterwards and as an outpatient, at this point they are not ready to loose hope and they are not ready to change his code status therefore the patient's code status remains FULL CODE. Problems Discussed (1) Gastric carcinoma:
[2021-03-06] MEDS: Pantoprazole Sodium 40 MG/10 ML VIAL IVPUSH (06:08)
[2021-03-06] MEDS: Potassium Chloride/H20 40 MEQ/100 ML PIGGYBACK 100 MEQ IV (06:22)
[2021-03-06] MEDS: Dorzolamide HCl 2 % Ophth Sol 10 ML DRPBTL 1 DROP EYE-BOTH ×3 (07:42→20:47)
[2021-03-06] MEDS: Albuterol/Iprat 2.5/0.5MG 3 ML AMPUL.NEB INHALE ×4 (07:52→20:16)
[2021-03-06] MEDS: Brimonidine Tartrate 0.2% Oph 5 ML BOTTLE 1 DROP EYE-BOTH ×3 (08:31→20:47)
[2021-03-06] MEDS: Chlorhexidine Gluc Oral Rinse 15 ML MOUTHWASH BUCCAL ×2 (08:31→14:29)
--- NOTE | 2021-03-06 10:13 | PC.NURSE ---
Addendum entered by Kristal Jacome RN 03/06/21 17:28: BEDSIDE SWALLOW EVAL WITH THE HELP OF THE TRACK ANNOUNCER - FAILED. IMMEDIATE COUGHING AND UNABLE TO CLEAR AIRWAY ON OWN. PT UNABLE TO MAINTAIN 02 ON HUNT CANNULA. CHANGED TO HIGH FLOW 50L/60%, ABLE TO TITRATE DOWN TO 50L/50%. PT CONTINUES TO BE CONFUSED AND AGITATED. PRECEDEX GTT REMAINS: SEE EMAR. RESTRAINTS REAPPLIED DUE TO FREQUENT REMOVAL OF 02 AND RAPID DESAT. TELESITTER REMAINS BEDSIDE FOR SAFETY. BATHED, Q2HR REPO, BARRIER CREAM, DENTURES REMOVED AND CLEANED/SOAKING IN DENTURE SOLUTION, PREVALOM, WEDGED, HEELBOS AND PILLOWS UTILIZED. Original Note: SEDATION VACATION/PROPOFOL GTT TURNED OFF AT 0725. VENT SETTINGS CHANGED TO PSV 5/5 40%, MD CHANGED VENT TO PSV 8/5 40%. OPENS EYES, TRACKING. LANDSCAPE ARTIST CALLED TO ASSIST. PATIENT ABLE TO FOLLOW SIMPLE COMMANDS. DENIES PAIN. KNOWS ONLY NAME, DATE AND REASON FOR COMING TO HOSPITAL UNKNOWN BY PT. EXTUBATED AT 0940 TO 15L HUNT, ABLE TO DECREASE TO 10L BRIEFLY. PATIENT NOTED TO BE A MOUTH BREATHER AND 02 DROPPED TO 82%. RT CALLED AND PT PLACED ON VENTI MASK 55%. PER MD 02 GOAL 88-90%. TOP DENTURES CLEANED AND PLACED IN MOUTH. RESTRAINTS REMOVED AND TELESITTER PLACED BEDSIDE FOR SAFETY. WILL CONTINUE TO MONITOR.
[2021-03-06] MEDS: dexmedeTOMIDidine HCL/NS 400 MCG/100 ML INFUS..BTL 11.78 MCG IVCONT (12:53)
--- NOTE | 2021-03-06 15:25 | P.PNCC_ITS ---
Subjective Subjective Date of Service: 03/06/21 Interval History: 80-year-old male with severe COPD came in with GI blood loss anemia had upper endoscopy performed supposedly prepped and supposedly NPO complicated by a large volume emesis and aspiration and apparently had significant outlet obstruction of the stomach remnant from a previous Billroth II procedure and there was noted a bleeding ulcer at the channel which was of course obstructing but in and actively bleeding it was biopsied and it looks like it is adenocarcinoma obviously making his prospects prognosis g which have try to drive home with the family a number of occasions but they still wish to keep Ms. zapien full code he had been intubated and and he was extubated today doing well he somewhat hyper been E ache it was soon as he wakes up in a because he has obviously features of the no of dementia he does nod with understanding and it is felt by a fiberglass laminator that he understands but he immediately becomes a tachypneic and hyperventilates drives down his end-tidal CO2 and when he does that he starts to develop some air trapping with auto PEEP and it when sedated and of course today at required dexmedetomidine he fell asleep respiratory rate comfortable he dropped his minute ventilatory requirement by a 40-50% in in and no more air trapping and he remained comfortable with excellent oxygen saturations His hemoglobin finally seems to be stabilizing after another unit of transfusion sitting in the 8-8.5 range which is comfortable for his circumstances and he has never demonstrated any issues with ischemia and has been pure normal sinus rhythm without dysrhythmia Critical Care Time (minutes): 45 Physical Exam Vital Signs: Vital Signs: Last Vital Signs Temp 99.1 F 03/06/21 15:00 Pulse 89 03/06/21 15:00 Resp 24 H 03/06/21 15:21 BP 152/82 H 03/06/21 15:00 Pulse Ox 95 03/06/21 15:00 Body Mass Index 26.7 Off sedation he did awaken with cognitive function follows commands locks is eyes etc. nonfocal neurologically He has got diffuse diffuse edema but skin is intact Cardiac exam by echo normal LV function but the tricuspid regurgitant velocity exceeds 4 m/sec so he has got a minimal pulmonary artery systolic pressure of 75 clearly reflecting a lot of chronic and probably an acute on chronic pulmonary hypertensive picture and therefore his heart failure was really predominant right heart failure and now that he is improving he is really beginning to diurese reflecting resolution to some degree of his pulmonary hypertension and cor pulmonale Objective Data Labs CBC & Chem 7: 03/07/21 05:45 03/07/21 05:45 Labs: Laboratory Results - last 24 hr 03/05/21 03/06/21 03/06/21 19:52 05:08 05:08 WBC 11.9 H RBC 3.40 L Hgb 8.6 L D 8.7 L Hct 27.3 L 27.6 L MCV 81.2 MCH 25.6 L MCHC 31.5 RDW 16.9 H Plt Count 210 MPV 10.3 Immature Gran % (Auto) 0.5 H Neut % (Auto) 80.2 H Lymph % (Auto) 7.2 L [place] % (Auto) 9.0 Eos % (Auto) 2.7 Baso % (Auto) 0.4 Lymph # (Auto) 0.9 L [place] # (Auto) 1.1 Eos # (Auto) 0.3 Baso # (Auto) 0.1 Abs Immat Gran (auto) 0.06 H Absolute Neuts (auto) 9.5 H Absolute Nucleated RBC 0.000 Nucleated RBC % (auto) 0.0 VBG pH VBG pCO2 VBG pO2 VBG HCO3 VBG O2 Saturation VBG Base Excess Sodium 143 Potassium 3.1 L Chloride 109 H Carbon Dioxide 25 Anion Gap 12 BUN 21 H Creatinine 0.84 Estim Creat Clear Calc 66.8 Estimated GFR > 60 Random Glucose 113 D Calcium 8.1 L Total Bilirubin 0.9 AST 36 ALT 56 H Alkaline Phosphatase 50 Total Protein 5.9 L Albumin 3.3 L 03/06/21 05:17 WBC RBC Hgb Hct MCV MCH MCHC RDW Plt Count MPV Immature Gran % (Auto) Neut % (Auto) Lymph % (Auto) [place] % (Auto) Eos % (Auto) Baso % (Auto) Lymph # (Auto) [place] # (Auto) Eos # (Auto) Baso # (Auto) Abs Immat Gran (auto) Absolute Neuts (auto) Absolute Nucleated RBC Nucleated RBC % (auto) VBG pH 7.44 H VBG pCO2 39 VBG pO2 52 VBG HCO3 26 VBG O2 Saturation 81.0 VBG Base Excess 2.8 Sodium Potassium Chloride Carbon Dioxide Anion Gap BUN Creatinine Estim Creat Clear Calc Estimated GFR Random Glucose Calcium Total Bilirubin AST ALT Alkaline Phosphatase Total Protein Albumin Microbiology Microbiology Results: Microbiology 03/05/21 17:18 Sputum - Suctioned Gram Stain - Final 03/05/21 17:18 Sputum - Suctioned Sputum Culture - Preliminary No growth to date. 03/02/21 23:18 Blood - Central Line Blood Culture - Preliminary No growth after 48 hours. 03/02/21 23:18 Blood - Central Line Blood Culture - Preliminary No growth after 48 hours. Quality Stroke Does the patient have a stroke diagnosis?: No VTE Prior VTE?: No VTE Risk Level:: Medical - moderate - high VTE Device Contraindication: N/A - Device Ordered VTE Drug Contraindication: Treatment Not Tolerated Progress Note: A&P Assessment and plan (1) Acute cor pulmonale without pulmonary embolism: Status: Acute (2) Gastric carcinoma: Status: Acute (3) COPD (chronic obstructive pulmonary disease): Status: Acute (4) Aspiration pneumonitis: Status: Acute (5) Acute respiratory failure without hypercapnia: Status: Acute (6) Anemia: Status: Acute (7) Upper GI bleeding: Status: Acute (8) Peptic anastomotic ulcer: Status: Acute (9) H/O Billroth II operation: Status: Acute Assessment and Plan: The plan I may go 1 more day with the Zosamueln and we have to work with him and respiratory therapy to encourage it expectoration and coughing and keep him on nasal high-flow and sedated with dexmedetomidine all of which seems to be working out fairly comfortably We withdrew all of his pressor support when we got him off of most of his sedation
[2021-03-06] MEDS: dexmedeTOMIDidine HCL/NS 400 MCG/100 ML INFUS..BTL 19.63 MCG IVCONT ×2 (17:40→22:08)
[2021-03-06] MEDS: Morphine Sulfate 2 MG/ML CARTRIDGE IVPUSH (19:57)
[2021-03-06] MEDS: Latanoprost 0.005 % Ophth Sol 2.5 ML DROPS 1 DROP EYE-BOTH (20:47)
[2021-03-07] VITALS (34 sets, daily range): BP systolic 128–162; BP diastolic 57–84; PULSE 52–96; RESP 18–30; TEMP 37.9–38.8; O2SAT 88–128; BMI 25.2
[2021-03-07] MEDS: dexmedeTOMIDidine HCL/NS 400 MCG/100 ML INFUS..BTL 29.44 MCG IVCONT ×4 (00:13→23:32)
[2021-03-07] MEDS: Piperacillin Sodium/Tazobactam 4.5 GM in 0.9 % Sodium Chloride 100 ML IV (00:21)
[2021-03-07] MEDS: dexmedeTOMIDidine HCL/NS 400 MCG/100 ML INFUS..BTL 23.55 MCG IVCONT ×4 (01:58→13:32)
[2021-03-07] MEDS: Acetaminophen Supp 650 MG SUPP.RECT PR ×2 (03:36→19:14)
[2021-03-07 05:20] LABS: VBG Base Excess 0.8 mmol/L; VBG HCO3 24 mmol/L (22-26); VBG pCO2 36 mmHg; VBG pH 7.43 (7.32-7.43); VBG pO2 45 mmHg
[2021-03-07 06:00] LABS: MANUAL DIFF FLAG NO
[2021-03-07 06:11] LABS: Basophils Percent Auto 0.3 % (0-2); Eosinophils Percent Auto 0.2 % (0-4); Hematocrit 31.7 % (42.0-52.0); Hemoglobin 9.7 g/dl (14.0-18.0); Imm Gran Abs Auto 0.07 X10*3/uL (0.00-0.03); Imm Gran Pct Auto 0.6 % (0.0-0.4); Lymphocytes Absolute Auto 0.7 X10*3/uL (1.2-4.9); Lymphocytes Percent Auto 6.4 % (20-40); Mean Corpuscular HGB Conc 30.6 g/dl (31.0-36.0); Mean Corpuscular Hemoglobin 24.8 pg (27.0-33.0); Mean Corpuscular Volume 81.1 fL (80.0-98.0); Mean Platelet Volume 10.3 fL (9.4-12.4); Monocytes Absolute Auto 0.7 X10*3/uL (0.1-1.2); Monocytes Percent Auto 6.6 % (2-11); Neutrophils Absolute Auto 9.5 x10*3/uL (2.0-8.3); Neutrophils Percent Auto 85.9 % (45-73); Platelet Count 262 X10*3/uL (160-400); Red Blood Count 3.91 X10*6/uL (4.60-5.80); Red Cell Distribution Width 17.2 % (11.0-16.0); White Blood Count 11.1 X10*3/uL (4.8-10.8)
[2021-03-07 06:17] LABS: Venous Blood Gas Refer to POC result
[2021-03-07 06:27] LABS: Alanine Aminotransferase 48 U/L (0-40); Albumin Level 3.3 g/dL (3.5-5.0); Alkaline Phosphatase 52 U/L (39-117); Anion Gap 18 (12-20); Aspartate Amino Transferase 26 U/L (5-37); Bilirubin Total 0.9 mg/dL (0.0-1.0); Blood Urea Nitrogen 20 mg/dL (9-16); Calcium 8.4 mg/dL (8.4-10.2); Carbon Dioxide 23 mmol/L (22-29); Chloride 111 mmol/L (96-108); Creatinine Clr Calc Pharmacy 69.4; Estimated Glomerular Filt Rate > 60; Glucose Random 118 mg/dL (60-115); Sodium 149 mmol/L (135-145); Total Protein 6.2 g/dL (6.5-8.0)
[2021-03-07] MEDS: Albuterol/Iprat 2.5/0.5MG 3 ML AMPUL.NEB INHALE ×4 (08:03→18:59)
[2021-03-07] MEDS: Brimonidine Tartrate 0.2% Oph 5 ML BOTTLE 1 DROP EYE-BOTH ×3 (09:28→20:16)
[2021-03-07] MEDS: Dorzolamide HCl 2 % Ophth Sol 10 ML DRPBTL 1 DROP EYE-BOTH ×3 (09:28→20:16)
[2021-03-07 09:46] LABS: Appearance Urine CLEAR; Color Urine YELLOW; Glucose Urine UA NEG (NEG); Leukocyte Esterase Urine NEG (NEG); Nitrite Urine NEG (NEG); Specific Gravity - Urine >= 1.030 (1.005-1.025); Urine Blood 1+ (NEG); Urine Ketones >=80 MG/DL (NEG); Urine Protein 2+ MG/DL (NEG-TRACE)
[2021-03-07 10:15] LABS: Mucus Urine TRACE /LPF; WBC Urine 0-2 /HPF (0-4)
[2021-03-07] MEDS: Potassium Chloride/H20 20 MEQ/100 ML PIGGYBACK 100 MEQ IV ×2 (11:40→13:24)
--- NOTE | 2021-03-07 12:35 | PC.NURSE ---
Pt remains on highflow 55liters and 60%fio2. Sats in mid 90s with RR mid 20s. Pt with elevated temp. MD aware. Ibarra cultures ordered/sent to lab. Potassium of 3.0- MD notified and IV replacement ordered/given. Small area of breakdown 0.5cmx0.5cm stage 2 pressure noted to left cheek r/t high flow device. - The device was repositioned off of the pressure site. Will monitor.
--- NOTE | 2021-03-07 13:07 | PHA.PROG ---
Admission Date/Time: March 02, 2021 12:30 Indication: penumonia Weight in k.1 kg Adjusted body weight in K.7 [place] body weight in K.8 Serum Creatinine - Last 168 Hours 03/02/21 03/02/21 03/02/21 16:25 19:17 23:18 Creatinine 0.85 0.82 0.84 03/03/21 03/03/21 03/04/21 05:15 11:58 05:30 Creatinine 0.88 0.86 0.91 03/05/21 03/06/21 03/07/21 05:18 05:08 05:45 Creatinine 0.87 0.84 0.74 Estimated CrCl and GFR - Last 168 Hours 03/02/21 03/02/21 03/02/21 16:25 19:17 23:18 Estim Creat Clear Calc 58.4 60.6 59.1 Estimated GFR > 60 > 60 > 60 03/03/21 03/03/21 03/04/21 05:15 11:58 05:30 Estim Creat Clear Calc 58.4 59.7 56.4 Estimated GFR > 60 > 60 > 60 03/05/21 03/06/21 03/07/21 05:18 05:08 05:45 Estim Creat Clear Calc 59.0 66.8 69.4 Estimated GFR > 60 > 60 > 60 Vancomycin Loading Dose: 1250 mg Current Vancomycin Dosing Regimen: 1250 mg q24 Vancomycin Monitoring using AUC goal of 400 - 600 range with trough as surrogate marker: Date and Time for next Vancomycin Level to be drawn:03/09 @1200 Pharmacist Comments on Vancomycin Plan: 1250 mg q24 hr will give predicted AUC of 459, trough of 13.5, conservative dosing due to pt age Vancomycin dosing will take advantage of StepOut as a clinical decision support tool that uses Bayesian modeling to calculate individual patient's pharmacokinetic parameters and forecast the patient's drug concentration time course with the target goal AUC 24 range of 400 - 600 mg/L/hr.
[2021-03-07] MEDS: vancomycin HCL 1,250 MG in 0.9 % Sodium Chloride 250 ML 166.67 MG IV (14:22)
[2021-03-07] MEDS: KCl 20 mEq in 5 % Dextrose 20 MEQ/1,000 ML IV.SOLN 80 MEQ IVCONT ×2 (14:55→23:56)
--- NOTE | 2021-03-07 15:56 | P.PNCC_ITS ---
Subjective Subjective Date of Service: 03/07/21 Interval History: 80-year-old COPD with a a gastric outlet obstruction due to channel ulcer that was bleeding causing his GI blood loss anemia at and turns out also to a been significantly obstructing clinically that seems to be resolved PE does not have any significant residual in his stomach and he still has not passed a swallow so he is not eating or drinking because he chokes on water and he has a stable hemoglobin but the biopsy did prove that this was adenocarcinoma with a poor prognosis as he is a very poor surgical candidate but he continues to demonstrate resolution of his acute cor pulmonale with continued add diuresis and the only thing of note is that he is hypokalemic as well as hypernatremic and probably has been over diuresed and we will replace free water as well as potassium on him and then just await improvement in his swallow but he is comfortable and sleeps most of the day with less respiratory effort on the nasal high-flow while he remains on dexmedetomidine Critical Care Time (minutes): 45 Physical Exam Vital Signs: Vital Signs: Last Vital Signs Temp 101.3 F H 03/07/21 14:58 Pulse 75 03/07/21 15:40 Resp 18 03/07/21 15:40 BP 137/66 03/07/21 14:58 Pulse Ox 96 03/07/21 14:58 Body Mass Index 25.2 Nonfocal neurologically and still has cognitive function and able to communicate demanding water Cardiac exam normal LV function by bedside echo resolving cor pulmonale with pretty good residual right ventricular systolic reserve Benign abdomen no again a megaly nontender Chest with diminished diaphragmatic effort Skin intact Objective Data Labs CBC & Chem 7: 03/07/21 05:45 03/07/21 05:45 Labs: Laboratory Results - last 24 hr 03/07/21 03/07/21 03/07/21 05:13 05:45 05:45 WBC 11.1 H RBC 3.91 L Hgb 9.7 L Hct 31.7 L MCV 81.1 MCH 24.8 L MCHC 30.6 L RDW 17.2 H Plt Count 262 MPV 10.3 Immature Gran % (Auto) 0.6 H Neut % (Auto) 85.9 H Lymph % (Auto) 6.4 L Harrison % (Auto) 6.6 Eos % (Auto) 0.2 Baso % (Auto) 0.3 Lymph # (Auto) 0.7 L Harrison # (Auto) 0.7 Eos # (Auto) 0.0 Baso # (Auto) 0.0 Abs Immat Gran (auto) 0.07 H Absolute Neuts (auto) 9.5 H Absolute Nucleated RBC 0.000 Nucleated RBC % (auto) 0.0 VBG pH 7.43 VBG pCO2 36 VBG pO2 45 VBG HCO3 24 VBG O2 Saturation 70.0 VBG Base Excess 0.8 Sodium 149 H Potassium 3.0 L Chloride 111 H Carbon Dioxide 23 Anion Gap 18 BUN 20 H Creatinine 0.74 Estim Creat Clear Calc 69.4 Estimated GFR > 60 Random Glucose 118 H Calcium 8.4 Total Bilirubin 0.9 AST 26 ALT 48 H Alkaline Phosphatase 52 Total Protein 6.2 L Albumin 3.3 L Urine Color Urine Appearance Urine pH Ur Specific [place] Urine Protein Urine Glucose (UA) Urine Ketones Urine Blood Urine Nitrite Ur Leukocyte Esterase Urine RBC Urine WBC Ur Squamous Epith Cells Urine Bacteria Urine Mucus 03/07/21 09:12 WBC RBC Hgb Hct MCV MCH MCHC RDW Plt Count MPV Immature Gran % (Auto) Neut % (Auto) Lymph % (Auto) Harrison % (Auto) Eos % (Auto) Baso % (Auto) Lymph # (Auto) Harrison # (Auto) Eos # (Auto) Baso # (Auto) Abs Immat Gran (auto) Absolute Neuts (auto) Absolute Nucleated RBC Nucleated RBC % (auto) VBG pH VBG pCO2 VBG pO2 VBG HCO3 VBG O2 Saturation VBG Base Excess Sodium Potassium Chloride Carbon Dioxide Anion Gap BUN Creatinine Estim Creat Clear Calc Estimated GFR Random Glucose Calcium Total Bilirubin AST ALT Alkaline Phosphatase Total Protein Albumin Urine Color YELLOW Urine Appearance CLEAR Urine pH 6.0 Ur Specific [place] >= 1.030 H Urine Protein 2+ H Urine Glucose (UA) NEG Urine Ketones >=80 Urine Blood 1+ H Urine Nitrite NEG Ur Leukocyte Esterase NEG Urine RBC 1-4 Urine WBC 0-2 Ur Squamous Epith Cells NONE Urine Bacteria NONE Urine Mucus TRACE Microbiology Microbiology Results: Microbiology 03/07/21 10:55 Sputum - Suctioned Gram Stain - Final 03/05/21 17:18 Sputum - Suctioned Gram Stain - Final 03/05/21 17:18 Sputum - Suctioned Sputum Culture - Preliminary Culture in progress. 03/02/21 23:18 Blood - Central Line Blood Culture - Preliminary No growth after 48 hours. 03/02/21 23:18 Blood - Central Line Blood Culture - Preliminary No growth after 48 hours. Quality Stroke Does the patient have a stroke diagnosis?: No VTE Prior VTE?: No VTE Risk Level:: Medical - moderate - high VTE Device Contraindication: N/A - Device Ordered VTE Drug Contraindication: Treatment Not Tolerated Progress Note: A&P Assessment and plan (1) Acute cor pulmonale without pulmonary embolism: Status: Acute (2) Gastric carcinoma: Status: Acute (3) COPD (chronic obstructive pulmonary disease): Status: Acute (4) Aspiration pneumonitis: Status: Acute (5) Acute respiratory failure without hypercapnia: Status: Acute (6) Anemia: Status: Acute (7) Upper GI bleeding: Status: Acute (8) Peptic anastomotic ulcer: Status: Acute (9) H/O Billroth II operation: Status: Acute Assessment and Plan: So I see an improvement in his work of breathing but the issue now is the low- grade temperature that he has developed still has a very productive cough and we were able to nasotracheally suctioning obtain a sample for culture along with blood in urine the urine itself looks thus far benign so I a.m. of grading to cefepime for his antibiotic and will await all the culture results Replenishing free water as well as potassium
[2021-03-07] MEDS: Morphine Sulfate 2 MG/ML CARTRIDGE IVPUSH ×2 (16:31→21:28)
[2021-03-07] MEDS: Latanoprost 0.005 % Ophth Sol 2.5 ML DROPS 1 DROP EYE-BOTH (20:15)
[2021-03-08] VITALS (39 sets, daily range): BP systolic 90–141; BP diastolic 48–87; PULSE 54–92; RESP 15–27; TEMP 37.4–38.9; O2SAT 89–98; BMI 24.0
[2021-03-08 01:14] LABS: Anion Gap 12 (12-20); Blood Urea Nitrogen 28 mg/dL (9-16); Calcium 8.3 mg/dL (8.4-10.2); Carbon Dioxide 25 mmol/L (22-29); Chloride 113 mmol/L (96-108); Creatinine Clr Calc Pharmacy 68.5; Estimated Glomerular Filt Rate > 60; Glucose Fasting 178 mg/dL (60-99); Potassium 3.3 mmol/L (3.3-5.1); Sodium 147 mmol/L (135-145)
[2021-03-08 01:19] LABS: B Type Natriuretic Peptide 2743 pg/mL (<100)
[2021-03-08] MEDS: Furosemide 20 MG/2 ML VIAL IVPUSH (02:32)
[2021-03-08] MEDS: dexmedeTOMIDidine HCL/NS 400 MCG/100 ML INFUS..BTL 29.44 MCG IVCONT ×4 (02:53→12:44)
--- NOTE | 2021-03-08 04:37 | PC.NURSE ---
CARE ASSUMED 23:15..CONFUSED/RESTLESS...ATTEMPTS TO PULL ON LINES...PRECIDEX MAINTAINED 1.5 MCG/KG/H...O2 55%/55 L HI-RIGO CANNULA..SAO2 90-91%..SQUIRES 10-14 CCD/HR...FINE CRACKLES 1/2-2/3 LOWER HO[place]...STAT LABS DRAWN PER ICU PA....D5W 1000/KCL 20MEQ 100 CC/HR...BNP 2743...IV FLUIDS MAINTAINED PER PA...LASIX 20MG IVP GIVEN...DIURESED >1000ml NEXT 2 HOURS...BP STABLE
[2021-03-08 05:20] LABS: Venous Blood Gas Refer to POC result
[2021-03-08 05:21] LABS: VBG Base Excess 6.8 mmol/L; VBG HCO3 30 mmol/L (22-26); VBG pCO2 37 mmHg; VBG pH 7.51 (7.32-7.43); VBG pO2 39 mmHg
[2021-03-08 05:51] LABS: MANUAL DIFF FLAG NO
[2021-03-08 05:55] LABS: Basophils Percent Auto 0.3 % (0-2); Eosinophils Absolute Auto 0.1 X10*3/uL (0.0-0.4); Eosinophils Percent Auto 0.4 % (0-4); Hemoglobin 9.5 g/dl (14.0-18.0); Imm Gran Abs Auto 0.09 X10*3/uL (0.00-0.03); Imm Gran Pct Auto 0.7 % (0.0-0.4); Lymphocytes Absolute Auto 1.3 X10*3/uL (1.2-4.9); Lymphocytes Percent Auto 10.4 % (20-40); Mean Corpuscular HGB Conc 30.6 g/dl (31.0-36.0); Mean Corpuscular Hemoglobin 24.5 pg (27.0-33.0); Mean Corpuscular Volume 80.1 fL (80.0-98.0); Mean Platelet Volume 10.5 fL (9.4-12.4); Monocytes Percent Auto 8.3 % (2-11); Neutrophils Absolute Auto 9.8 x10*3/uL (2.0-8.3); Neutrophils Percent Auto 79.9 % (45-73); Platelet Count 274 X10*3/uL (160-400); Red Blood Count 3.87 X10*6/uL (4.60-5.80); Red Cell Distribution Width 17.4 % (11.0-16.0); White Blood Count 12.3 X10*3/uL (4.8-10.8)
[2021-03-08 06:17] LABS: Alanine Aminotransferase 37 U/L (0-40); Albumin Level 3.3 g/dL (3.5-5.0); Alkaline Phosphatase 46 U/L (39-117); Anion Gap 14 (12-20); Aspartate Amino Transferase 20 U/L (5-37); Bilirubin Total 0.8 mg/dL (0.0-1.0); Blood Urea Nitrogen 25 mg/dL (9-16); Calcium 8.5 mg/dL (8.4-10.2); Carbon Dioxide 28 mmol/L (22-29); Chloride 107 mmol/L (96-108); Estimated Glomerular Filt Rate > 60; Glucose Random 201 mg/dL (60-115); Potassium 2.9 mmol/L (3.3-5.1); Sodium 146 mmol/L (135-145); Total Protein 6.4 g/dL (6.5-8.0)
[2021-03-08] MEDS: Albuterol/Iprat 2.5/0.5MG 3 ML AMPUL.NEB INHALE ×4 (07:57→20:34)
[2021-03-08] MEDS: Fluticasone/Vilanterol 200/25 BLST.W.DEV 1 PUFF INHALE (08:02)
[2021-03-08] MEDS: Brimonidine Tartrate 0.2% Oph 5 ML BOTTLE 1 DROP EYE-BOTH ×3 (08:09→21:20)
[2021-03-08] MEDS: Dorzolamide HCl 2 % Ophth Sol 10 ML DRPBTL 1 DROP EYE-BOTH ×3 (08:09→21:20)
--- NOTE | 2021-03-08 10:01 | MHC.CLN ---
F/U PT IS DAY 7 NPO PT EXTUBATED 03/05; PT FAILED BS SWALLOW EVAL PER NSG DISCUSSED AT ROUNDS WITH MD PENDING POSSIBLE KAOFEED TUBE PLACEMENT FOR NUTRITION RECOMMEND TUBE FEEDING GLUCERNA AT MAX GOAL RATE 90 ML/HOUR AND 30 ML PROSOURCE ONCE A DAY TO PROVIDE 2200 KCALS (30.5KCALS/KG), 105 GRAMS (1.45G/KG) PROTEIN AND 1843CC FREE WATER FROM FORMULA WITH 300 CC WATER FLUSH ONCE PER DAY FOR A TOTAL OF 2143 CC FREE WATER (30ML/KG) START FORMULA AT 20ML/HR AND INCREASE BY 10ML Q 4 HRS UNTIL MAX GOAL IS REACHED IF TPN NEEDED RECOMMEND D15 AA5%: DAY ONE: AT 50 ML/HOUR TO PROVIDE 852 KCALS, 60 GRAMS PROTEIN REPLETE LYTES NEEDED
[2021-03-08] MEDS: KCl 20 mEq in 5 % Dextrose 20 MEQ/1,000 ML IV.SOLN 100 MEQ IVCONT (11:27)
[2021-03-08] MEDS: vancomycin HCL 1,250 MG in 0.9 % Sodium Chloride 250 ML 166.67 MG IV (12:40)
--- NOTE | 2021-03-08 12:40 | MHC.CM.PN ---
Pt extubated but continues to have nutritional complications d/t gastric outlet carcinoma: plan is for KO feed vs TPN: GI to consult. Pt and pt son have opted to maximize all treatment even though the outcomes are not favorable. Pt will likely need a surgically placed feeding tube: Call placed to [facility] to give a clinical update to Honey: Inquired on ? TPN availability at facility: Honey will discuss with DON and callback. CM to follow for d/c planning needs: return to [facility]
--- NOTE | 2021-03-08 12:52 | MHC.SL.SWA ---
Speech Pathologist Impression: Oralpharyngeal Dysphagia Risk of Aspiration Due to: History of Pneumonia Hx of Recent Extubation Dysphasia Diet Status: Upgrade Liquid Consistency and Strategies for Safe Swallow: Liquid Intake Recommendation: [place] Thick Liquid Intake Strategies: Small Sips No Straws Liquids by Teaspoon Only Solid Food Consistency: Dietary Recommendations: Pureed (NDD1) Additional Modifications to Solid Foods: Oral Medication Intake: Crushed with Puree Compensatory Strategies and Precautions to be Taken for Safe Swallow: Sitting Upright (90 deg) Menselsohn Maneuver Liquids from Spoon Alternate Liquids/Solids Oral Check Supervision While Eating and Drinking for Safe Swallow: Total Supervision (1:1) Foods to Avoid: Swallowing Recommended Treatments: Compens. Strategy Educat. Recommendation for Speech: Inpatient Speech Therapy Comment: Encourage periodic cough during feeding. Pt. required full assist during feeding and 1-1 supervision. Panman Clinican/Clinical Fellow: No Supervisory Statement: I have reviewed and agree with the student/clinical fellow's documentation: N/A Speech Language Pathologist: Marilu Chavez M.A. CCC-FOREST NURSERY SUPERVISOR
--- NOTE | 2021-03-08 13:05 | W.PM.IDCN ---
History of Present Illness Data of Consult Service Date: 03/08/21 Requesting physician: Gisele De Santiago Primary Care Provider: Unknown Physician HPI Reason for consult: bacteremia,aspiration He presents to hospital for evaluation GI blood loss. 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 He had temperature 101 last day He has CXR filmy densities but does have h/o COPD/pulmonary fibrosis. Blood culture shows Gram positive cocci 1/2. Sputum yeast Review of Systems Review of Systems: Yes unobtainable due to endotracheal tube PMFSH Past Medical History Medical History COPD (chronic obstructive pulmonary disease) COPD (chronic obstructive pulmonary disease) Depressed Diabetes Elevated cholesterol GERD (gastroesophageal reflux disease) Glaucoma History of ETOH abuse HTN (hypertension) Oxygen dependent Peptic ulcer Resides in retirement facility Stomach cancer Functional capacity: uses cane/walker Family History Family history: reviewed and not pertinent Surgical History Surgical History H/O Billroth II operation Surgical history unknown Social History Social History Household Members Other:: resides in SNF Housing: Longterm Housing Other:: [facility] Are you a primary child care aide to a significant other at home: No Do you presently have visiting nurse or other home services: No Unable to assess alcohol history related to: Unknown Patient Tobacco Use Status: Tobacco use Unknown Use of substances other than those prescribed or required for medical reasons: Unable to respond Currently Displaying Signs/Symptoms of Drug Intoxication Withdrawal: No Have you been hit, kicked, punched, or otherwise hurt by someone within the past year? If so, by whom?: No Are you DNR?: No Advance Directives: Yes Advance Directives Information Provided: Yes Advance Directives on File: Yes Advance Directives Date on File: 09/04/20 Do you have thoughts of harming others: None Do you have a plan to hurt others: No Plan Recently lost weight without trying: No Eating poorly because of decreased appetite: No Nutrition Risks: Surgical patient >75years Poor oral hygiene: Yes service: No Current occupational status: disabled Meds Allergies Allergy/AdvReac Type Severity Reaction Status Date / Time cinnamon Allergy Angioedema Verified 03/02/21 09:43 Active Medications: Current Medications Acetaminophen (Acetaminophen Supp 650 Mg Supp.Rect) 650 mg MD Q6H PRN PRN Reason: Fever Last Admin: 03/07/21 19:14 Dose: 650 mg Documented by: Albuterol Sulfate (Albuterol Sulfate (0.083%) 2.5 Mg/3 Ml Vial.Neb) 2.5 mg INHALE ONCE PRN PRN Reason: Shortness of Breath/Wheezing Albuterol/Ipratropium (Albuterol/Iprat 2.5/0.5mg 3 Ml Ampul.Neb) 3 ml INHALE RQ4H WHILE AWAKE [facility] Last Admin: 03/08/21 11:20 Dose: 3 ml Documented by: Brimonidine Tartrate (Brimonidine Tartrate 0.2% Oph 5 Ml Bottle) 1 drop EYE-BOTH TID [facility] Last Admin: 03/08/21 08:09 Dose: 1 drop Documented by: Dorzolamide HCl (Dorzolamide Hcl 2 % Ophth Liv 10 Ml Drpbtl) 1 drop EYE-BOTH TID [facility] Last Admin: 03/08/21 08:09 Dose: 1 drop Documented by: Fluticasone/Vilanterol (Fluticasone/Vilanterol 200/25 Blst.W.Dev) 1 puff INHALE RDAILY [facility] Last Admin: 03/08/21 08:02 Dose: 1 puff Documented by: Dexmedetomidine HCl (Precedex) 400 mcg in 100 mls @ 0 mls/hr IVCONT .Q0M [facility]; Protocol Last Admin: 03/08/21 12:44 Dose: 1.5 mcg/kg/hr, 29.44 mls/hr Documented by: Potassium Chloride/Dextrose () 20 meq in 1,000 mls @ 100 mls/hr IVCONT .Q10H [facility] Last Admin: 03/08/21 11:27 Dose: 100 mls/hr Documented by: Vancomycin HCl 1,250 mg/ (Sodium Chloride) 250 mls @ 166.667 mls/hr IV Q24H [facility] Last Admin: 03/08/21 12:40 Dose: 166.67 mls/hr Documented by: Latanoprost (Latanoprost 0.005 % Ophth Liv 2.5 Ml Drops) 1 drop EYE-BOTH BEDTIME [facility] Last Admin: 03/07/21 20:15 Dose: 1 drop Documented by: Morphine Sulfate (Morphine Sulfate 2 Mg/Ml Cartridge) 2 mg IVPUSH Q4H PRN; Protocol PRN Reason: Pain, Moderate (Pain Scale 4-6 Last Admin: 03/07/21 21:28 Dose: 2 mg Documented by: Naloxone HCl (Naloxone Hcl 0.4 Mg/Ml Vial) 0.2 mg IVPUSH Q2M PRN PRN Reason: Excessive sedation or RR < 8 Pharmacy Consult (Consult Rx Vancomycin Dosing) 1 each MISCELLANE DAILY PRN PRN Reason: Consult order Home Medications Medication Instructions Recorded Confirmed Last Taken Type bisacodyl 5 mg tablet,delayed 5 mg PO QAM 02/26/21 02/26/21 Unknown History release (Dulcolax (bisacodyl)) brimonidine 0.2 % eye drops 1 drp OPHTHALMIC (EYE) TID 02/26/21 02/26/21 Unknown History cetirizine 10 mg tablet 10 mg PO QAM 02/26/21 02/26/21 Unknown History dorzolamide 2 % eye drops 1 drp OPHTHALMIC (EYE) TID 02/26/21 02/26/21 Unknown History ergocalciferol (vitamin D2) 1,250 1,250 mcg PO QMONTH 02/26/21 02/26/21 Unknown History mcg (50,000 unit) capsule (Vitamin D2) ferrous sulfate 325 mg (65 mg 325 mg PO BID 02/26/21 02/26/21 Unknown History iron) tablet fluticasone 500 mcg-salmeterol 50 1 inh INHALATION BID 02/26/21 02/26/21 Unknown History mcg/dose blistr powdr for inhalation (Wixela Inhub) lactulose 10 gram/15 mL oral 30 ml PO TID 02/26/21 02/26/21 Unknown History solution latanoprost 0.005 % eye drops 1 drp OPHTHALMIC (EYE) QPM 02/26/21 02/26/21 Unknown History (Xalatan) pantoprazole 40 mg tablet,delayed 40 mg PO BID 02/26/21 02/26/21 Unknown History release polyethylene glycol 3350 17 gram 17 g PO QAM 02/26/21 02/26/21 Unknown History oral powder packet (Miralax) sertraline 50 mg tablet 50 mg PO QAM 02/26/21 02/26/21 Unknown History trazodone 50 mg tablet 150 mg PO BEDTIME 02/26/21 02/26/21 Unknown History umeclidinium 62.5 mcg/actuation 1 inh INHALATION QAM 02/26/21 02/26/21 Unknown History blister powder for inhalation (Incruse Ellipta) Physical Exam Vital Signs: Vital Signs: Last Vital Signs Temp 101.5 F H 03/08/21 12:00 Pulse 83 03/08/21 12:00 Resp 24 H 03/08/21 12:00 BP 134/61 03/08/21 12:00 Pulse Ox 94 03/08/21 12:00 Body Mass Index 24.0 Const: General: cooperative Eyes: General: appearance normal, both eyes and all related structures Resp: Effort & Inspection: normal respiratory effort Auscultation: rhonchi Cardio: Rate: regular rate Rhythm: regular rhythm GI: Palpation (GI): Soft to palpation and nontender Skin: General skin exam: no rashes or lesions noted Extrem: General: Yes normal to inspection Results Labs CBC & Chem 7: 03/08/21 05:12 03/08/21 05:12 Labs: Short CBC 03/08/21 Range/Units 05:12 WBC 12.3 H (4.8-10.8) X10*3/uL Hgb 9.5 L (14.0-18.0) g/dl Hct 31.0 L (42.0-52.0) % Plt Count 274 (160-400) X10*3/uL BMP 03/08/21 03/08/21 00:42 05:12 Sodium 147 H 146 H Potassium 3.3 2.9 L Chloride 113 H 107 Carbon Dioxide 25 28 BUN 28 H 25 H Creatinine 0.75 0.79 Calcium 8.3 L 8.5 Liver Function 03/08/21 Range/Units 05:12 Total Bilirubin 0.8 (0.0-1.0) mg/dL AST 20 (5-37) U/L ALT 37 (0-40) U/L Alkaline Phosphatase 46 (39-117) U/L Albumin 3.3 L (3.5-5.0) g/dL Microbiology Microbiology Results: Microbiology 03/07/21 10:55 Sputum - Suctioned Gram Stain - Final 03/07/21 10:55 Sputum - Suctioned Sputum Culture - Preliminary Culture in progress. 03/07/21 05:50 Blood - Venous Blood Culture - Preliminary Prelim: GPC Gram Stain only 03/05/21 17:18 Sputum - Suctioned Gram Stain - Final 03/05/21 17:18 Sputum - Suctioned Sputum Culture - Preliminary Yeast Yeast#2 03/07/21 05:50 Blood - Venous Blood Culture - Preliminary No growth after 24 hours. 03/02/21 23:18 Blood - Central Line Blood Culture - Final No growth after 5 days. 03/02/21 23:18 Blood - Central Line Blood Culture - Final No growth after 5 days. Assessment and Plan (1) Aspiration pneumonitis: Status: Acute there is concern over staph aureus bacteremia is 1/2,may be contaminant if staph epi Possible gram positive lung prognosis guarded (2) Acute respiratory failure without hypercapnia: Status: Acute Continue Vancomycin Await blood culture Would not treat yeast in sputum
[2021-03-08 13:07] LABS: Phosphorus 2.5 mg/dL (2.7-4.5)
--- NOTE | 2021-03-08 13:33 | PC.NURSE ---
Skin/wound assessment completed. Patient has a medical planner associated pressure injury to left cheek. Hydrocolloid dressing applied for healing and protection.
--- NOTE | 2021-03-08 14:00 | P.PNGI_ITS ---
Subjective Subjective Date of Service: 03/08/21 Critical Care Time (minutes): 0 Comment: responds to voice denies pain Physical Exam Vital Signs: Vital Signs: Last Vital Signs Temp 101.8 F H 03/08/21 13:00 Pulse 66 03/08/21 13:00 Resp 22 H 03/08/21 13:00 BP 137/63 03/08/21 13:00 Pulse Ox 96 03/08/21 13:00 Body Mass Index 24.0 GI: Other: abdomen is soft and nontender Objective Data Labs CBC & Chem 7: 03/08/21 05:12 03/08/21 05:12 Procedures Date of Service Date of Service: 03/08/21 Progress Note: A&P Assessment and plan (1) Aspiration pneumonitis: Status: Acute Assessment and Plan: passed swallowing eval hematocrit has stabilized continue ppi Fall Risk Details Current Medications: Current Medications Acetaminophen (Acetaminophen Supp 650 Mg Supp.Rect) 650 mg OR Q6H PRN PRN Reason: Fever Last Admin: 03/07/21 19:14 Dose: 650 mg Documented by: Albuterol Sulfate (Albuterol Sulfate (0.083%) 2.5 Mg/3 Ml Vial.Neb) 2.5 mg INHALE ONCE PRN PRN Reason: Shortness of Breath/Wheezing Albuterol/Ipratropium (Albuterol/Iprat 2.5/0.5mg 3 Ml Ampul.Neb) 3 ml INHALE RQ4H WHILE AWAKE [facility] Last Admin: 03/08/21 11:20 Dose: 3 ml Documented by: Brimonidine Tartrate (Brimonidine Tartrate 0.2% Oph 5 Ml Bottle) 1 drop EYE- BOTH TID [facility] Last Admin: 03/08/21 08:09 Dose: 1 drop Documented by: Clonidine HCl (Clonidine Hcl 0.1 Mg Tablet) 0.1 mg PO TID [facility]; Protocol Dorzolamide HCl (Dorzolamide Hcl 2 % Ophth Liv 10 Ml Drpbtl) 1 drop EYE-BOTH TID [facility] Last Admin: 03/08/21 08:09 Dose: 1 drop Documented by: Fluticasone/Vilanterol (Fluticasone/Vilanterol 200/25 Blst.W.Dev) 1 puff INHALE RDAILY [facility] Last Admin: 03/08/21 08:02 Dose: 1 puff Documented by: Dexmedetomidine HCl (Precedex) 400 mcg in 100 mls @ 0 mls/hr IVCONT .Q0M [facility]; Protocol Last Admin: 03/08/21 12:44 Dose: 1.5 mcg/kg/hr, 29.44 mls/hr Documented by: Potassium Chloride/Dextrose () 20 meq in 1,000 mls @ 100 mls/hr IVCONT .Q10H [facility] Last Admin: 03/08/21 11:27 Dose: 100 mls/hr Documented by: Vancomycin HCl 1,250 mg/ (Sodium Chloride) 250 mls @ 166.667 mls/hr IV Q24H [facility] Last Admin: 03/08/21 12:40 Dose: 166.67 mls/hr Documented by: Potassium Chloride 60 meq/Magnesium Sulfate 10 meq/Potassium Phosphate 40 mmol/Calcium Gluconate 9 meq/Multivitamins 17 ml/ Trace Metals 1.7 ml/ Amino Acids/Dextrose 1,200 mls @ 50 mls/hr IVCONT DAILY@1800 ALISSA Stop: 03/09/21 17:59 Latanoprost (Latanoprost 0.005 % Ophth Liv 2.5 Ml Drops) 1 drop EYE-BOTH BEDTIME [facility] Last Admin: 03/07/21 20:15 Dose: 1 drop Documented by: Morphine Sulfate (Morphine Sulfate 2 Mg/Ml Cartridge) 2 mg IVPUSH Q4H PRN; Protocol PRN Reason: Pain, Moderate (Pain Scale 4-6 Last Admin: 03/07/21 21:28 Dose: 2 mg Documented by: Naloxone HCl (Naloxone Hcl 0.4 Mg/Ml Vial) 0.2 mg IVPUSH Q2M PRN PRN Reason: Excessive sedation or RR < 8 Pharmacy Consult (Consult Rx Vancomycin Dosing) 1 each MISCELLANE DAILY PRN PRN Reason: Consult order Time Spent With Patient Time: Total time spent is greater than 50% in coordination of care (as documented) at patient's floor/unit and/or counseling patient: Time with patient: less than 15 minutes Quality Stroke Does the patient have a stroke diagnosis?: No VTE Prior VTE?: No VTE Risk Level:: Medical - moderate - high VTE Device Contraindication: N/A - Device Ordered VTE Drug Contraindication: Treatment Not Tolerated
[2021-03-08] MEDS: cloNIDine HCL 0.1 MG TABLET PO (14:05)
--- NOTE | 2021-03-08 16:56 | P.PNCC_ITS ---
Subjective Subjective Date of Service: 03/08/21 Interval History: Mr. Webster was admitted to the ICU on March 02, after requiring tracheal intubation following aspiration during elective upper endoscopy. The patient is an 80-year-old male with past medical history of hypertension, COPD on home oxygen with significant interstitial lung dz on CXR of 01/11/21 , diabetes, GERD, past alcohol abuse, and peptic ulcer disease.? It is unclear whether not the patient previously had stomach cancer.? He is status post a Billroth II procedure. The patient resides in a group home facility.? He is reportedly independent with ADLs, and ambulatory with a walker, otherwise uses a wheelchair.? He is primarily Pashto speaking but understands some Mongolian. On March 02, the patient presented for elective EGD because of subacute GI blood loss anemia as well as early satiety, weight loss, and upper abdominal pain.? At EGD, he was found to have an ulcer at the gastrojejunal anastomosis with partial anastomotic obstruction.? No active bleeding was noted. ?He had significant gastric distention with some retained food/liquid in the stomach.? During the procedure, there was regurgitation and hypoxemia, suggesting aspiration.? The patient was intubated in order to complete the procedure.? Following completion of the procedure, the patient was extubated, but required re-intubation because of labored breathing with hypoxemia. Following that the patient was admitted to the ICU, where chest x-ray showed increased interstitial prominence compared to baseline, and subtle new patchy opacities in the lung bases.? He was put on Abx and required vasopressors, volume resuscitation, transfusion of RBCs, and central line placement.? On bedside echo, LV and RV function look normal, but RVSP estimate was 75 mm. The pathology report from the ulcers has since come back showing adenocarcinoma.? On 03/05, KAMALA Ji spoke with the patient?s HCP (his son Jensen) about code status.? The family wished to maintain the patient with full code status.? Sputum Gram stain showed 1+ polys and no organisms.. ?The patient was extubated yesterday and has been on high flow.? He has required Precedex sedation.? Zosyn was stopped yesterday and vancomycin was continued.? Blood cultures drawn yesterday morning because of a temperature spike grew out 1/4 bottles with Gram-positive cocci at 29 hours. Today started out with the patient on Precedex at 1.5ug bec he was delirious and pulling on his lines and his HFNC.? We gave him clonidine 0.1 ug and Zyprexa 2.5 mg po and were then able to taper the Precedex off.? Currently, he?s c/o mid abdominal pain and SOB (via a studio camera operator).? He knows his name but is not oriented to place or time.? He?s otherwise fairly calm.? HR is about 80, SR, BP is 112/53.? RR on HFNC 50L/55% is 18-25 with big excursions, SpO2 92-94%.? Central venous blood gas this morning showed 7.51/37/+6.? Tmax 102.0.? No JVD at 30-40?.? Chest shows very dry rhonchi throughout.? Normal exp phase.? Regular rate and rhythm, normal S1 and S2, I heard no murmur or gallops.? Abdomen is very minimally distended, if at all.? He has good bowel sounds.? The belly is soft with mild left/mid abdominal tenderness only to deep palpation.? He has no peripheral edema. LABORATORY DATA:? As below.? The? notably, sodium is 146, potassium 2.9, BUN/creatinine 25/0.7. MICROBIOLOGY:? Urinalysis yesterday was negative.? Sputum Gram stain from yesterday showed 1+ polys and 4+ epithelial cells.? Blood cultures from yesterday are growing Gram-positive cocci in 1/4 bottles at 29 hours.? All the other bottles are negative at > 36 hrs. ANTIBIOTICS:? Only vancomycin at this point.? Zosyn was stopped yesterday after 5 days. IMAGING:? Most recent chest x-ray is from March 06 and shows worse interstitial dz than the CXR of Mar 02. Bedside ECHOCARDIOGRAM done today by me:? Image quality:? Good.? Findings: 1. LV wall thickness probably normal. 2. Normal LV size and function with no regional wall motion abnormalities EF probably about 60%. 3. RV size top-normal or mildly enlarged. 4. Atria not assessed. 5. Aortic valve trileaflet with trace AI by color-flow, no significant . 6. ?Mitral valve normal morphology with trace MR by color flow. 7. Tricuspid valve normal morphology with an eccentric 2+ MR jet by color- flow.? Continuous wave Doppler jet measured 4.0 m/sec, indicating a gradient of 64 mm. 8.? IVC measured 1.8 cm with minimal inspiratory collapse.? Estimated CVP 10-12 mm. ?Estimated RVSP therefore 74-76 mm. IMPRESSION: 1. Status post Billroth II surgery, presumably for ulcer disease. 2. 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 Bx of the antrum showed H. Pylori.? Continuing PPI bid. 3. Gastric malignancy.? Followed by Dr. Prather.? Treatment can be addressed once he?s recovered from his pneumonia and resp failure 4. Status post aspiration pneumonia.? Not clear that he had an infectious pneumonia (his sputum was unremarkable) vs a chemical aspiration pneumonitis.? CXR does not show a discreet infiltrate, rather shows a diffuse worsening of his interstitial disease (which would be more c/w the latter).? Bottom line, can?t say whether the abx were beneficial, but regardless, he?s already had 5 days worth. 5. Hypoxemic resp failure, 2? above.? Doing reasonably well post extubation.? Rx WOB w opiates. 6. Renal.? Indices holding steady, remarkably so. 7. PHTN/Cor pulmonale with right heart failure.? Undoubtedly 2? severe interstitial lung dz.? (Can?t r/o an element of sleep apnea.) 8. Anemia.? Three units RBCs transfused, last tx was on Mar 05.? Stable Hb over last few days. 9. ID:? Spiking temps with only mild, stable leukocytosis and without gross sepsis.? The positive BC from yesterday was most likely a contaminant.? Will redraw blood cultures, a lactate, and repeat his chest x-ray tomorrow morning.? For now continue the vancomycin. 10. Neuro/psych:? Acute delirium/metabolic encephalopathy.? No reason by history to think that his baseline mental status is this deranged.? Clonidine and Zyprexa worked well to get him off the Precedex.? We?ll continue the Zyprexa on a prn basis.? I anticipate his encephalopathy will improve as he gets better. 11. Nutrition.? Passed a limited swallow eval today.? Start on pureed diet, plus ?half-dose? TPN.? Discussed at length with medical records coder. Critical care time (including full chart rev, extended d/w Vish De Santiago and Joey, extended d/w pharmacy and medical records coder, and hosp course summary):? 90+ min. Critical Care Time (minutes): 90 Physical Exam Vital Signs: Vital Signs: Last Vital Signs Temp 101.5 F H 03/08/21 15:58 Pulse 64 03/08/21 15:58 Resp 21 H 03/08/21 15:58 BP 125/58 L 03/08/21 15:58 Pulse Ox 93 03/08/21 15:58 Body Mass Index 24.0 Objective Data Labs CBC & Chem 7: 03/08/21 05:12 03/08/21 05:12 Labs: Laboratory Results - last 24 hr 03/08/21 03/08/21 03/08/21 00:42 00:42 05:12 WBC 12.3 H RBC 3.87 L Hgb 9.5 L Hct 31.0 L MCV 80.1 MCH 24.5 L MCHC 30.6 L RDW 17.4 H Plt Count 274 MPV 10.5 Immature Gran % (Auto) 0.7 H Neut % (Auto) 79.9 H Lymph % (Auto) 10.4 L [place] % (Auto) 8.3 Eos % (Auto) 0.4 Baso % (Auto) 0.3 Lymph # (Auto) 1.3 [place] # (Auto) 1.0 Eos # (Auto) 0.1 Baso # (Auto) 0.0 Abs Immat Gran (auto) 0.09 H Absolute Neuts (auto) 9.8 H Absolute Nucleated RBC 0.000 Nucleated RBC % (auto) 0.0 VBG pH VBG pCO2 VBG pO2 VBG HCO3 VBG O2 Saturation VBG Base Excess Sodium 147 H Potassium 3.3 Chloride 113 H Carbon Dioxide 25 Anion Gap 12 BUN 28 H Creatinine 0.75 Estim Creat Clear Calc 68.5 Estimated GFR > 60 Random Glucose Fasting Glucose 178 H D Calcium 8.3 L Phosphorus 2.5 L Magnesium 2.0 Total Bilirubin AST ALT Alkaline Phosphatase B-Natriuretic Peptide 2743 H Total Protein Albumin 03/08/21 03/08/21 05:12 05:13 WBC RBC Hgb Hct MCV MCH MCHC RDW Plt Count MPV Immature Gran % (Auto) Neut % (Auto) Lymph % (Auto) [place] % (Auto) Eos % (Auto) Baso % (Auto) Lymph # (Auto) [place] # (Auto) Eos # (Auto) Baso # (Auto) Abs Immat Gran (auto) Absolute Neuts (auto) Absolute Nucleated RBC Nucleated RBC % (auto) VBG pH 7.51 H VBG pCO2 37 VBG pO2 39 VBG HCO3 30 H VBG O2 Saturation 62.0 VBG Base Excess 6.8 Sodium 146 H Potassium 2.9 L Chloride 107 Carbon Dioxide 28 Anion Gap 14 BUN 25 H Creatinine 0.79 Estim Creat Clear Calc 65.0 Estimated GFR > 60 Random Glucose 201 H D Fasting Glucose Calcium 8.5 Phosphorus Magnesium Total Bilirubin 0.8 AST 20 ALT 37 Alkaline Phosphatase 46 B-Natriuretic Peptide Total Protein 6.4 L Albumin 3.3 L Microbiology Microbiology Results: Microbiology 03/07/21 10:55 Sputum - Suctioned Gram Stain - Final 03/07/21 10:55 Sputum - Suctioned Sputum Culture - Preliminary Culture in progress. 03/07/21 05:50 Blood - Venous Blood Culture - Preliminary Prelim: GPC Gram Stain only 03/05/21 17:18 Sputum - Suctioned Gram Stain - Final 03/05/21 17:18 Sputum - Suctioned Sputum Culture - Preliminary Yeast Yeast#2 03/07/21 05:50 Blood - Venous Blood Culture - Preliminary No growth after 24 hours. 03/02/21 23:18 Blood - Central Line Blood Culture - Final No growth after 5 days. 03/02/21 23:18 Blood - Central Line Blood Culture - Final No growth after 5 days. Quality Stroke Does the patient have a stroke diagnosis?: No VTE Prior VTE?: No VTE Risk Level:: Medical - moderate - high VTE Device Contraindication: N/A - Device Ordered VTE Drug Contraindication: Treatment Not Tolerated Critical Care Time Critical Care Time (minutes): 90
[2021-03-08] MEDS: Latanoprost 0.005 % Ophth Sol 2.5 ML DROPS 1 DROP EYE-BOTH (21:20)
[2021-03-08] MEDS: Morphine Sulfate 2 MG/ML CARTRIDGE IVPUSH (21:37)
[2021-03-08] MEDS: OLANZapine 2.5 MG TABLET PO (21:38)
[2021-03-08] MEDS: Pantoprazole Sodium 40 MG/10 ML VIAL IVPUSH (21:51)
--- NOTE | 2021-03-08 23:24 | MHC.PIE ---
Shift eval 7p-11p: BP running lower - 90's systolic, map 50's to low 60's. Dr Arguello aware - Levo ordered, but to monitor at start of shift. Urine output low from 8p-10p - only 5ml. Discussed w/ Maile PA - levo started at approx 2210 with good affect - urine output at 11p 50ml, map >65. Discussed evening medications with Dr Arguello - with marginal BP - question if we should give clonidine. Ordered to d/c clonidine & change zyprexa to PRN Q12H. Orders followed, Zyprexa given @ 213 after patient took off oxygen and became slightly anxious. Medicated w/ good affect - patient cooperative with care, leaving oxygen on. Patient complained of abd pain - incont of stool initially, then called and had 3 total BM in bedpan - dark brown, loose. Patient medicated for pain 2mg IVP morphine at 2136 with good affect - reports pain relief.
[2021-03-09] VITALS (27 sets, daily range): BP systolic 100–126; BP diastolic 48–57; PULSE 76–104; RESP 18–28; TEMP 36.9–37.7; O2SAT 87–99; BMI 24.5
[2021-03-09] MEDS: Morphine Sulfate 2 MG/ML CARTRIDGE IVPUSH ×2 (04:20→19:18)
--- NOTE | 2021-03-09 04:30 | PC.NURSE ---
CARE ASSUMED 23:15..AWAKE..MAINLY [place] [employer] SPEAKING...DISORIENTED TO RECENT EVENTS/PLACE & TIME VIA MANAGER LABOR RELATIONS...MAINTAINED HI RIGO CANNULA M55%/55 LITERS...SAO2 91-93%...OCASIONAL LOOSE COUGH..RAISES SMALL AMOUNT WHITE SPUTUM...LEVOPHED 0.04 MCG/KG/M..BP STABLE AND URINE OUTPUT IMPROVING OVERNIGHT..HYPERAL 50 CC/HR...C/O BILATERAL LOWER LEG/KNEE PAIN...SEQUENTIAL STOCKINGS REMOVED PER REQUEST AND MEDICATED PRN MORPHINE 2 MG IV...CURRENTLY RESTFUL..NO DISTRESS
[2021-03-09] MEDS: Pantoprazole Sodium 40 MG/10 ML VIAL IVPUSH ×2 (05:24→16:36)
[2021-03-09 05:40] LABS: VBG Base Excess 6.3 mmol/L; VBG HCO3 29 mmol/L (22-26); VBG pCO2 37 mmHg; VBG pO2 36 mmHg
[2021-03-09 06:06] LABS: Hematocrit 29.9 % (42.0-52.0); Hemoglobin 9.3 g/dl (14.0-18.0); Mean Corpuscular HGB Conc 31.1 g/dl (31.0-36.0); Mean Corpuscular Hemoglobin 25.1 pg (27.0-33.0); Mean Corpuscular Volume 80.6 fL (80.0-98.0); Mean Platelet Volume 10.5 fL (9.4-12.4); Platelet Count 274 X10*3/uL (160-400); Red Blood Count 3.71 X10*6/uL (4.60-5.80); Red Cell Distribution Width 17.6 % (11.0-16.0); White Blood Count 15.4 X10*3/uL (4.8-10.8)
[2021-03-09 06:16] LABS: Anion Gap 10 (12-20); Blood Urea Nitrogen 26 mg/dL (9-16); Carbon Dioxide 28 mmol/L (22-29); Chloride 108 mmol/L (96-108); Creatinine Clr Calc Pharmacy 73.4; Estimated Glomerular Filt Rate > 60; Glucose Random 125 mg/dL (60-115); Magnesium 1.8 mg/dL (1.6-2.6); Phosphorus 2.5 mg/dL (2.7-4.5); Sodium 143 mmol/L (135-145)
[2021-03-09 06:25] LABS: B Type Natriuretic Peptide 763 pg/mL (<100)
[2021-03-09 06:49] LABS: Lactic Acid 1.5 mmol/L (0.5-2.0)
[2021-03-09 07:18] LABS: Venous Blood Gas A
[2021-03-09] MEDS: Albuterol/Iprat 2.5/0.5MG 3 ML AMPUL.NEB INHALE ×3 (07:21→15:32)
[2021-03-09] MEDS: Fluticasone/Vilanterol 200/25 BLST.W.DEV 1 PUFF INHALE (07:21)
[2021-03-09 08:24] LABS: Anion Gap 11 (12-20); Blood Urea Nitrogen 24 mg/dL (9-16); Calcium 7.9 mg/dL (8.4-10.2); Carbon Dioxide 26 mmol/L (22-29); Chloride 109 mmol/L (96-108); Creatinine Clr Calc Pharmacy 77.8; Estimated Glomerular Filt Rate > 60; Glucose Random 145 mg/dL (60-115); Potassium 2.9 mmol/L (3.3-5.1); Sodium 143 mmol/L (135-145)
[2021-03-09] MEDS: Dorzolamide HCl 2 % Ophth Sol 10 ML DRPBTL 1 DROP EYE-BOTH ×3 (08:56→19:31)
[2021-03-09] MEDS: Brimonidine Tartrate 0.2% Oph 5 ML BOTTLE 1 DROP EYE-BOTH ×3 (08:56→19:31)
--- NOTE | 2021-03-09 09:30 | CA_ITS ---
Transthoracic Echocardiogram Patient (Last, First, Middle): Jad Webster, Gender: Male Date of : 1940 Age: 80 Procedure Date: 03/09/2021 Procedure Type: Transthoracic Echocardiogram Location: ICU Height: 167.64 cm Weight: 68.95 kg BSA: 1.78 m2 Heart Rate: bpm BP: 121 / 55 mmHg Training Director: Referring MD: Moustapha Arguello MD Symptoms: 80 yo with respiratory failure. R/o heart failure. Study Quality: Fair ECG Rhythm: Sinus Conclusions: - The left ventricular systolic function is normal. The calculated ejection fraction is 56% by biplane method. - Normal right ventricular cavity size and systolic function. RV basal diameter 3.6cm. TAPSE 2.1cm. - There is mild tricuspid valve regurgitation. - Small plaque is seen in the sino tubular ridge. - The right ventricular systolic pressure is 75 mmHg. Severe pulmonary hypertension is present. Findings Left Ventricle Normal left ventricular cavity size. There is mildly increased left ventricular wall thickness. The left ventricular systolic function is normal. The calculated ejection fraction is 56% by biplane method. There is no evidence of regional wall motion abnormalities. E/E prime ratio is >15, consistent with elevated filling pressures. Evidence suggests grade I (mild) diastolic dysfunction. Right Ventricle Normal right ventricular cavity size and systolic function. RV basal diameter 3.6cm. TAPSE 2.1cm. Atria Both atria are normal in size. Aortic Valve There is a normal trileaflet aortic valve. There is no aortic valve stenosis. There is trace (trivial) aortic valve regurgitation. Mitral Valve The mitral valve appears normal. There is trace mitral valve regurgitation. There is no mitral valve stenosis. Pulmonic Valve There is trace pulmonic valve regurgitation. Tricuspid Valve Normal tricuspid valve structure. There is mild tricuspid valve regurgitation. The right ventricular systolic pressure is 75 mmHg. Severe pulmonary hypertension is present. Great Vessels The aortic annulus, sinuses of valsalva, and asc aorta are normal in size. Small plaque is seen in the sino tubular ridge. Venous The inferior vena cava is mildly dilated and collapses greater than 50% with inspiration. Pericardium/Pleural There is a trivial pericardial effusion. Prior Study Comparison No prior study available for comparison. Measurements 2D Linear Measurements IVSd: 1.15 0.6-0.9/0.6-1.0 cm LVIDd: 4.46 3.9-5.3/4.2-5.9 cm LVIDd Index: 2.51 2.4-3.2/2.2-3.1 cm/m2 LVIDs: 2.75 2.0-3.6 cm LVPWd: 1.10 0.7-1.1 cm Ao Root: 3.10 2.1-3.5 cm LA Diam: 3.90 2.7-3.8/3.0-4.0 cm LAIDs Index: 2.19 1.5-2.3 cm/m2 LV Mass: 221.93 67-162/88-224 g LV Mass Index: 124.68 43-95/49-115 g/m2 LVOT Diam: 2.00 3.0+(-)1.3 cm 2D Systolic Function EF 4C: 60.30 >55% EF 2C: 54.60 >55% EF BiP: 56.00 >55% Mitral Valve MV Pk E: 1.09 MV PK A: 1.26 MV Decel Time: 226.00 E/A: 0.90 E'Lateral: 7.40 E'Medial: 5.77 E/E' Med: 18.90 E/E' Lat: 14.70 PHT: 66.00 MVA PHT: 3.33 Decel [place]: 4.81 Aortic Valve AoV Pk Antoine: 1.85 AoV Mn Antoine: 1.34 AoV VTI: 0.33 AoV Pk Grad: 14.00 Aov Mn Grad: 8.00 ARY Cont.VTI: 2.16 LVOT LVOT Pk Antoine: 1.31 LVOT Mn Antoine: 0.86 LVOT VTI: 0.23 LVOT Pk Grad: 7.00 LVOT Mn Grad: 4.00 LVOT Diam: 2.00 LVOT Area: 3.14 Diastolic Function MV Pk E: 1.09 MV Pk A: 1.26 E/A: 0.90 E'Medial: 5.77 E/E' Med: 18.90 E' Laterial: 7.40 E/E' Lat: 14.70 Right Ventricle TAPSE (mm): 21.00 TVS' Antoine: 15.00 Tricuspid Valve TR Pk Antoine: 3.99 TR Pk Grad: 64.00 RVSP: 75.00 Great Vessels Aorta Ao Root-2D: 3.10 2.0-3.7 cm Ao Asc: 3.20 2.1-3.4 cm Pulmonary Valve PV Pk Antoine: 1.15 Peak PV Grad: 5.00 Updated in Other Vendor System with Status of Final Patrick Brunson MD electronically signed on 03/09/2021 12:22:20 PM with status of Final
--- NOTE | 2021-03-09 10:05 | MHC.CLN ---
Addendum entered by Niurka Garvin, LEO 03/09/21 13:10: AGREE WITH PROVIDER'S ASSESSMENT BELOW WITH ADDITION: DIET RX: PUREED WITH NT LIQ-APPROPRIATE Original Note: F/U DIET RX: REGULAR (WITH TPN) PT HAS POOR PO INTAKE ONLY CONSUMED APPLESAUCE AND 1 DRINK FOR BREAKFAST RECOMMEND STRAWBERRY ENSURE BID TO PROVIDE 700 KCALS AND 40 GRAMS PROTEIN PT RECEIVING TPN D15 AA5% AT 50 ML/HOUR TO PROVIDE 852 KCALS, 60 GRAMS PROTEIN RECOMMEND INCREASING TPN TO D15 AA5% AT 70 ML/HOUR TO PROVIDE 1193 KCALS, 84 GRAMS PROTEIN MONITOR LYTES MONITOR PO INTAKE AND SUPPLEMENT ACCEPTANCE
[2021-03-09 10:11] LABS: Albumin Level 2.9 g/dL (3.5-5.0); Triglycerides 87 mg/dL
--- NOTE | 2021-03-09 10:47 | P.PNGI_ITS ---
Subjective Subjective Date of Service: 03/09/21 Interval History: Tolerating diet after passing swallowing evaluation. States a little luq pain when askeed. Critical Care Time (minutes): 0 Physical Exam Vital Signs: Vital Signs: Last Vital Signs Temp 99.9 F 03/09/21 09:00 Pulse 93 03/09/21 10:00 Resp 23 H 03/09/21 10:00 BP 106/55 L 03/09/21 10:00 Pulse Ox 87 L 03/09/21 10:00 Body Mass Index 24.5 Const: Other: appears reasonably comfortable GI: Other: abdomen is soft and nontender, no rebound, bowel sounds are present Objective Data Labs CBC & Chem 7: 03/09/21 05:32 03/09/21 07:51 Procedures Date of Service Date of Service: 03/09/21 Progress Note: A&P Assessment and plan (1) Peptic anastomotic ulcer: Status: Acute Assessment and Plan: improving, no signs of gi bleeding. can change ppi to oral bid dosing. Fall Risk Details Current Medications: Current Medications Acetaminophen (Acetaminophen Supp 650 Mg Supp.Rect) 650 mg IA Q6H PRN PRN Reason: Fever Last Admin: 03/07/21 19:14 Dose: 650 mg Documented by: Albuterol/Ipratropium (Albuterol/Iprat 2.5/0.5mg 3 Ml Ampul.Neb) 3 ml INHALE RQ4H WHILE AWAKE [facility] Last Admin: 03/09/21 07:21 Dose: 3 ml Documented by: Brimonidine Tartrate (Brimonidine Tartrate 0.2% Oph 5 Ml Bottle) 1 drop EYE- BOTH TID [facility] Last Admin: 03/09/21 08:56 Dose: 1 drop Documented by: Dorzolamide HCl (Dorzolamide Hcl 2 % Ophth Liv 10 Ml Drpbtl) 1 drop EYE-BOTH TID [facility] Last Admin: 03/09/21 08:56 Dose: 1 drop Documented by: Fluticasone/Vilanterol (Fluticasone/Vilanterol 200/25 Blst.W.Dev) 1 puff INHALE RDAILY [facility] Last Admin: 03/09/21 07:21 Dose: 1 puff Documented by: Dexmedetomidine HCl (Precedex) 400 mcg in 100 mls @ 0 mls/hr IVCONT .Q0M [facility]; Protocol Last Titration: 03/08/21 15:28 Dose: 0 mcg/kg/hr, 0 mls/hr Documented by: Vancomycin HCl 1,250 mg/ (Sodium Chloride) 250 mls @ 166.667 mls/hr IV Q24H [facility] Last Infusion: 03/08/21 14:15 Dose: Infused Documented by: Potassium Chloride 60 meq/Magnesium Sulfate 10 meq/Potassium Phosphate 40 mmol/Calcium Gluconate 9 meq/Multivitamins 17 ml/ Trace Metals 1.7 ml/ Amino Acids/Dextrose 1,200 mls @ 50 mls/hr IVCONT DAILY@1800 [facility] Stop: 03/09/21 17:59 Last Admin: 03/08/21 18:16 Dose: 50 mls/hr Documented by: Norepinephrine Bitartrate (Levophed) 8 mg in 250 mls @ 0 mls/hr IVCONT .Q0M [facility]; Protocol Last Admin: 03/08/21 22:14 Dose: 0.04 mcg/kg/min, 5.06 mls/hr Documented by: Potassium Chloride 80 meq/Magnesium Sulfate 10 meq/Potassium Phosphate 60 mmol/Calcium Gluconate 9 meq/Multivitamins 12 ml/ Trace Metals 1.2 ml/ Amino Acids/Dextrose 1,680 mls @ 70 mls/hr IVCONT DAILY@1800 [facility] Stop: 03/10/21 17:59 Latanoprost (Latanoprost 0.005 % Ophth Liv 2.5 Ml Drops) 1 drop EYE-BOTH BEDTIME [facility] Last Admin: 03/08/21 21:20 Dose: 1 drop Documented by: Morphine Sulfate (Morphine Sulfate 2 Mg/Ml Cartridge) 2 mg IVPUSH Q4H PRN; Protocol PRN Reason: Pain, Moderate (Pain Scale 4-6 Last Admin: 03/09/21 04:20 Dose: 2 mg Documented by: Olanzapine (Olanzapine 2.5 Mg Tablet) 2.5 mg PO Q12H PRN PRN Reason: anxiety/restlessness Last Admin: 03/08/21 21:38 Dose: 2.5 mg Documented by: Pantoprazole Sodium (Pantoprazole Sodium 40 Mg/10 Ml Vial) 40 mg IVPUSH BID@0630,1630 [facility] Last Admin: 03/09/21 05:24 Dose: 40 mg Documented by: Pharmacy Consult (Consult Rx Vancomycin Dosing) 1 each MISCELLANE DAILY PRN PRN Reason: Consult order Time Spent With Patient Time: Total time spent is greater than 50% in coordination of care (as documented) at patient's floor/unit and/or counseling patient: Time with patient: less than 15 minutes Quality Stroke Does the patient have a stroke diagnosis?: No VTE Prior VTE?: No VTE Risk Level:: Medical - moderate - high VTE Device Contraindication: N/A - Device Ordered VTE Drug Contraindication: Treatment Not Tolerated
--- NOTE | 2021-03-09 12:00 | PM.CCPN ---
Subjective Subjective Date of Service: 03/09/21 Interval History: Mr. Webster was admitted to the ICU on March 02, after requiring tracheal intubation following aspiration during elective upper endoscopy. The patient is an 80-year-old male with past medical history of hypertension, COPD on home oxygen, who also has significant interstitial lung dz (based on CXR of 01/11/21).? Also has h/o diabetes, GERD, past alcohol abuse, and peptic ulcer disease.? It?s unclear whether not the patient previously had stomach cancer.? He is status post a Billroth II procedure, presumably for PUD. The patient resides in a half-way facility.? He is reportedly independent with ADLs, and ambulatory with a walker, otherwise uses a wheelchair.? He is primarily Citizen [place] speaking but understands some Micronesian. On March 02, the patient presented for elective EGD because of subacute GI blood loss anemia as well as early satiety, weight loss, and upper abdominal pain.? At EGD, he was found to have an ulcer at the gastrojejunal anastomosis with partial anastomotic obstruction.? No active bleeding was noted.? He had significant gastric distention with some retained food/liquid in the stomach.? During the procedure, there was regurgitation and hypoxemia, suggesting aspiration.? The patient was intubated in order to complete the procedure. ?Following completion of the procedure, the patient was extubated, but required re-intubation because of labored breathing with hypoxemia. Following that the patient was admitted to the ICU, where chest x-ray showed increased interstitial prominence compared to baseline, and subtle new patchy opacities in the lung bases.? He was put on Abx and required vasopressors, volume resuscitation, transfusion of RBCs, and central line placement.? On bedside echo, LV and RV function look normal, but RVSP estimate was 75 mm. 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 On 03/05, KAMALA Ji spoke with the patient?s HCP (his son Jensen) about code status.? The family wished to maintain the patient with full code status.? Sputum Gram stain showed 1+ polys and no organisms..? The patient was extubated on Mar 07 and has been on high flow.? He required Precedex for agitation control.? Zosyn was stopped on Mar 07 and vancomycin was continued.? Blood cultures drawn Mar 07 because of a temperature spike grew out 1/4 bottles with Coag negative Staph at 29 hours.? The other BC bottles are still negative. Yesterday we got the patient off Precedex with clonidine and Zyprexa.? He?s been calm since then and has not required further PHOTOGRAPH MOUNTER agents, altho he remains largely not oriented.? I reecho?d him yesterday, confirming his RVSP estimate of about 74mm.? He remained on the HFNC on 55% FiO2 with very mildly increased WOB.? T-max yesterday was 102 degrees. Today, his breathing definitely looks a little easier.? He remains calm, looks less toxic.? No complaints of abdominal pain today after 2 bowel movements last night.? Oxygenation is significantly improved, and FiO2 is down to 40%/40L flow, w SpO2 low 90s.? Central venous blood gas this morning showed 7.50/37/+6.? HR 90s, SR.? BP 110/53, on no pressors.? He is afebrile so far today.? He knows his name but is not oriented to place or time.? No JVD at 30-40?.? Chest is crystal CTA, w normal exp phase.? Soft heart tones, I heard no murmur or gallops.? Abdomen is flatter today, and softer.? He has good bowel sounds.? The belly is soft with no tenderness to deep palpation.? He has no peripheral edema. LABORATORY DATA:? As below. ?Notably, WBC is up, Hb is steady, sodium is down to 143, potassium 2.9, BUN/creatinine down slightly.? Lactate 1.5.? BNP is 763, compared to 2743 yesterday (no clear reason; the patient was not on diuretics). MICROBIOLOGY:? Urinalysis 03/07 was negative.? Sputum Gram stain showed 1+ polys and 4+ epithelial cells.? Blood cultures grew coag neg Staph in 1/4 bottles at 29 hours.? All the other bottles are negative at > 48 hrs. ANTIBIOTICS:? Only vancomycin at this point.? Zosyn was stopped on Mar 07 after 5 days. IMAGING:? CXR today looks improved to me compared w the last film from 03/06 (but it could be just technique). IMPRESSION: 1. Status post Billroth II surgery in the past, presumably for ulcer disease. 2. 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 Bx of the antrum showed H. Pylori.? Continuing PPI bid.? As far as antibiotics for H pylori go, the patient already had 5 days of Zosyn.? I will add 10 days of amoxicillin and Levaquin at GI?s recommendation. 3. Gastric malignancy.? Followed by Dr. Prather.? Treatment can be addressed once he?s recovered from his pneumonia and resp failure 4. Status post aspiration pneumonia.? Not clear that he had an infectious pneumonia (his sputum was unremarkable) vs a chemical aspiration pneumonitis.? CXR does not show a discreet infiltrate, rather shows a diffuse worsening of his interstitial disease (which would be more c/w the latter).? Bottom line, can?t say whether the abx were beneficial, but regardless, he?s already had 5 days worth. 5. Hypoxemic resp failure, 2? above.? Doing reasonably well post extubation.? His breathing looks better today than yesterday. ?Rx WOB w opiates.? I am also going to give him one dose of Lasix 20 mg today.? (Given the patient?s PHTN with RHF, he might well drop his pressure with the Lasix, which would indicated for sure that he has RHF, and would indicated that he?s not volume overloaded.) 6. Renal.? Renal indices holding steady, remarkably so. 7. PHTN/Cor pulmonale with right heart failure.? Undoubtedly 2? severe interstitial lung dz.? Can?t r/o an element of sleep apnea.? Also can?t r/o CTEPH (chronic thromboembolic pulmonary hypertension).? In regards to the latter, I discussed the patient's situation with Dr. Aguilar from Pulmonary.? We feel that his severe interstitial lung disease is adequate to explain his pulmonary hypertension.? In regards to CTEPH, the only treatment for that in this patient would be anticoagulation and he is not really a candidate for that, given his ulcers.? So at this point, I would not pursue that further.? But if all the usual suspects were to be ruled out, a V/Q scan as an outpatient could be considered. 8. Anemia.? Three units RBCs transfused, last tx was on Mar 05.? Stable Hb over last few days. 9. ID:? Spiking temps with mild leukocytosis and without gross sepsis.? The positive BC from 03/07 is certain to be a contaminant.? Blood cultures were redrawn this morning.? Lactate is negative, and repeat chest x-ray this morning, if anything, looks better.? I will d/c the vancomycin. 10. Neuro/psych:? Acute delirium/metabolic encephalopathy.? No reason by history to think that his baseline mental status is this deranged.? Clonidine and Zyprexa worked well to get him off the Precedex.? We?ll continue the Zyprexa on a prn basis, but he hasn?t needed any.? The improvement in his encephalopathy over the last 24 hrs is undoubtedly indicative of continuing improvement in his overall condition. 11. Nutrition.? Taking a pureed diet, limited by his appetite.? We also have him on ?half-dose? TPN.? Discussed at length with patient clerical assistant. Time:? [id number] Critical Care Time (minutes): 0 Physical Exam Vital Signs: Vital Signs: Last Vital Signs Temp 99.9 F 03/09/21 09:00 Pulse 90 03/09/21 11:39 Resp 20 03/09/21 11:00 BP 104/52 L 03/09/21 11:00 Pulse Ox 93 03/09/21 11:00 Body Mass Index 24.5 Objective Data Labs CBC & Chem 7: 03/09/21 05:32 03/09/21 07:51 Labs: Laboratory Results - last 24 hr 03/08/21 03/09/21 03/09/21 00:42 05:32 05:32 WBC RBC Hgb Hct MCV MCH MCHC RDW Plt Count MPV Absolute Nucleated RBC Nucleated RBC % (auto) VBG pH VBG pCO2 VBG pO2 VBG HCO3 VBG O2 Saturation VBG Base Excess Sodium Potassium Chloride Carbon Dioxide Anion Gap BUN Creatinine Estim Creat Clear Calc Estimated GFR Random Glucose Lactic Acid 1.5 Calcium Phosphorus 2.5 L Magnesium 2.0 B-Natriuretic Peptide 763 H Albumin Triglycerides 03/09/21 03/09/21 03/09/21 05:32 05:32 05:33 WBC 15.4 H RBC 3.71 L Hgb 9.3 L Hct 29.9 L MCV 80.6 MCH 25.1 L MCHC 31.1 RDW 17.6 H Plt Count 274 MPV 10.5 Absolute Nucleated RBC 0.000 Nucleated RBC % (auto) 0.0 VBG pH 7.50 H VBG pCO2 37 VBG pO2 36 VBG HCO3 29 H VBG O2 Saturation 59.0 VBG Base Excess 6.3 Sodium 143 Potassium 3.0 L Chloride 108 Carbon Dioxide 28 Anion Gap 10 L BUN 26 H Creatinine 0.70 Estim Creat Clear Calc 73.4 Estimated GFR > 60 Random Glucose 125 H D Lactic Acid Calcium 8.0 L Phosphorus 2.5 L Magnesium 1.8 B-Natriuretic Peptide Albumin Triglycerides 03/09/21 07:51 WBC RBC Hgb Hct MCV MCH MCHC RDW Plt Count MPV Absolute Nucleated RBC Nucleated RBC % (auto) VBG pH VBG pCO2 VBG pO2 VBG HCO3 VBG O2 Saturation VBG Base Excess Sodium 143 Potassium 2.9 L Chloride 109 H Carbon Dioxide 26 Anion Gap 11 L BUN 24 H Creatinine 0.66 Estim Creat Clear Calc 77.8 Estimated GFR > 60 Random Glucose 145 H Lactic Acid Calcium 7.9 L Phosphorus Magnesium B-Natriuretic Peptide Albumin 2.9 L Triglycerides 87 Microbiology Microbiology Results: Microbiology 03/07/21 05:50 Blood - Venous Blood Culture - Final Coag negative Staphylococcus 03/07/21 09:12 Urine Catheterized - Garcia Catheter Urine Culture - Final No growth. 03/05/21 17:18 Sputum - Suctioned Gram Stain - Final 03/05/21 17:18 Sputum - Suctioned Sputum Culture - Final Kaylyn albicans Kaylyn glabrata 03/07/21 10:55 Sputum - Suctioned Gram Stain - Final 03/07/21 10:55 Sputum - Suctioned Sputum Culture - Final 03/07/21 05:50 Blood - Venous Blood Culture - Preliminary No growth after 48 hours. 03/02/21 23:18 Blood - Central Line Blood Culture - Final No growth after 5 days. 03/02/21 23:18 Blood - Central Line Blood Culture - Final No growth after 5 days. Quality Stroke Does the patient have a stroke diagnosis?: No VTE Prior VTE?: No VTE Risk Level:: Medical - moderate - high VTE Device Contraindication: N/A - Device Ordered VTE Drug Contraindication: Treatment Not Tolerated
[2021-03-09 12:54] LABS: Vancomycin Random < 3.0 mcg/mL (15-20)
[2021-03-09] MEDS: levoFLOXacin 250 MG TABLET PO (14:31)
[2021-03-09] MEDS: vancomycin HCL 1,000 MG in 0.9 % Sodium Chloride 250 ML 270 MG IV (14:31)
[2021-03-09] MEDS: Furosemide 20 MG/2 ML VIAL IVPUSH (14:31)
--- NOTE | 2021-03-09 15:33 | MHC.SL.SWA ---
Speech Pathologist Impression: Oralpharyngeal Dysphagia Risk of Aspiration Due to: History of Pneumonia Hx of Recent Extubation Dysphasia Diet Status: Upgrade Liquid Consistency and Strategies for Safe Swallow: Liquid Intake Recommendation: [place] Thick Liquid Intake Strategies: Small Sips No Straws Liquids by Teaspoon Only Solid Food Consistency: Dietary Recommendations: Pureed (NDD1) Additional Modifications to Solid Foods: Oral Medication Intake: Crushed with Puree Compensatory Strategies and Precautions to be Taken for Safe Swallow: Sitting Upright (90 deg) Liquids from Spoon Alternate Liquids/Solids Oral Check Supervision While Eating and Drinking for Safe Swallow: Total Supervision (1:1) Foods to Avoid: Swallowing Recommended Treatments: Compens. Strategy Educat. Recommendation for Speech: Inpatient Speech Therapy Pt seen today to reassess swallow, toleration of current diet. Nurse was present, administering meds crushed in puree. Pt took meds/puree with mild delay of oral phase, pharyngeal/laryngeal phase WNL. C/o bitterness of med. Pt was also given by VISUALIZATION DEVELOPER trial of nectar thick liquid, with similar delay or oral phase/bolus preparation, with pharyngeal/laryngeal phase wnl. Pt c/o apple sauce, apple juice, would prefer other flavors. Nurse reported that Pt spat out pureed lunch, c/o texture. Pt. wears upper dentures which were found today during the visit. At this time, due to high flow nasal cannula, Pt cannot wear denture, but as his status upgrades, he should be assessed for swallow with dentures. Comment: Encourage periodic cough during feeding. Pt. required full assist during feeding and 1-1 supervision. Frequency/Duration: Date Range for Service Req: Timeline to reassess: Mechanic Marine Engine Clinican/Clinical Fellow: No Supervisory Statement: I have reviewed and agree with the student/clinical fellow's documentation: N/A Speech Language Pathologist: Marilu Chavez M.A. CCC-VISUALIZATION DEVELOPER
--- NOTE | 2021-03-09 15:41 | MHC.CM.PN ---
Pt remains in ICU : able to eat small amounts of pureed diet and is being supplemented by TPN. Discussed pt needing to be off of TPN prior to return to [facility]. They are able to accomodate G or J tubes should pt require one. CM will follow
[2021-03-09] MEDS: Amoxicillin 500 MG CAPSULE 1000 MG PO (19:14)
[2021-03-09] MEDS: Latanoprost 0.005 % Ophth Sol 2.5 ML DROPS 1 DROP EYE-BOTH (19:31)
[2021-03-10] VITALS (12 sets, daily range): BP systolic 104–137; BP diastolic 57–87; PULSE 83–103; RESP 16–24; TEMP 36.9–37.1; O2SAT 90–98; BMI 22.7
[2021-03-10] MEDS: Pantoprazole Sodium 40 MG/10 ML VIAL IVPUSH ×2 (05:04→16:42)
[2021-03-10 05:30] LABS: VBG HCO3 27 mmol/L (22-26); VBG pCO2 35 mmHg; VBG pH 7.49 (7.32-7.43); VBG pO2 46 mmHg
[2021-03-10 05:50] LABS: Hematocrit 27.6 % (42.0-52.0); Hemoglobin 8.5 g/dl (14.0-18.0); Mean Corpuscular HGB Conc 30.8 g/dl (31.0-36.0); Mean Corpuscular Hemoglobin 24.9 pg (27.0-33.0); Mean Corpuscular Volume 80.9 fL (80.0-98.0); Mean Platelet Volume 10.8 fL (9.4-12.4); Platelet Count 263 X10*3/uL (160-400); Red Blood Count 3.41 X10*6/uL (4.60-5.80); White Blood Count 12.9 X10*3/uL (4.8-10.8)
[2021-03-10 06:06] LABS: Anion Gap 10 (12-20); Blood Urea Nitrogen 25 mg/dL (9-16); C Reactive Protein 9.13 mg/dL (< or = 0.50); Carbon Dioxide 27 mmol/L (22-29); Chloride 107 mmol/L (96-108); Creatinine Clr Calc Pharmacy 76.5; Estimated Glomerular Filt Rate > 60; Glucose Random 173 mg/dL (60-115); Magnesium 1.9 mg/dL (1.6-2.6); Phosphorus 3.8 mg/dL (2.7-4.5); Potassium 3.2 mmol/L (3.3-5.1); Sodium 141 mmol/L (135-145)
[2021-03-10 06:10] LABS: Venous Blood Gas Refer to POC result
[2021-03-10] MEDS: Potassium Chloride Packet 20 MEQ PACKET 40 MEQ PO (07:31)
[2021-03-10] MEDS: Dorzolamide HCl 2 % Ophth Sol 10 ML DRPBTL 1 DROP EYE-BOTH ×3 (07:31→21:07)
[2021-03-10] MEDS: Brimonidine Tartrate 0.2% Oph 5 ML BOTTLE 1 DROP EYE-BOTH ×3 (07:31→21:07)
[2021-03-10] MEDS: Amoxicillin 500 MG CAPSULE 1000 MG PO ×2 (07:31→21:07)
[2021-03-10] MEDS: Fluticasone/Vilanterol 200/25 BLST.W.DEV 1 PUFF INHALE (07:45)
[2021-03-10 08:49] LABS: Procalcitonin 0.09 ng/mL
[2021-03-10 09:54] LABS: Triglycerides 80 mg/dL
--- NOTE | 2021-03-10 10:08 | MHC.CLN ---
Addendum entered by Niurka Garvin, LEO 03/10/21 11:44: AGREE WITH PROVIDER'S ASSESSMENT BELOW WITH ADDITION TPN PROVIDING 50% OF ESTIMATED KCAL NEEDS Original Note: F/U DIET RX: PUREED WITH NT LIQ (WITH TPN)-APPROPRIATE PT'S PO INTAKE DOCUMENTED 25% PT RECEIVING STRAWBERRY ENSURE BID TO PROVIDE 700 KCALS AND 40 GRAMS PROTEIN PT RECEIVING TPN D15 AA5% AT 70 ML/HOUR TO PROVIDE 1193 KCALS, 84 GRAMS PROTEIN MONITOR LYTES MONITOR PO INTAKE
--- NOTE | 2021-03-10 14:21 | MHC.SL.DTX ---
Dysphagia Diet modifications: Upgrade solids Last documented Solid diet consistencies: Pureed (NDD1) Last documented Liquid consistency: [place] Thick Last documented Medication Administration:Crushed with Puree Changes made to current diet?: Yes: Solids advanced to NDD2 GROUND/MECHANICALLY ALTERED. Liquid Consistency and Strategies: Liquid Intake Recommendation: [place] Thick Compensatory Strategies for Safe Swallow: Small Sips No Straws Liquids by Teaspoon Only Compensatory Strategies for Safe Swallow(b): Sitting Upright (90 deg) No Straw Liquids from Spoon Alternate Liquids/Solids Oral Check Solid Food Consistency: Dietary Recommendations: Grnd/Mech Altered (NDD2) Additional Modifications to Solids: extra sauce/gravy on meats Oral Medication Intake: Crushed with Puree Strategies and Precautions to be Taken for Safe Swallow: Sitting Upright (90 deg) No Straw Liquids from Spoon Alternate Liquids/Solids Oral Check Supervision While Eating and/Drinking: Total Supervision (1:1) Swallowing Recommended Treatments: Compens. Strategy Educat. Level of Impact on: Daily activities: Severe Education: Severe Employment: Severe Community: Severe Prognosis for Improvement: Guarded Recommendation for Speech: Inpatient Speech Therapy Treatment: Pt was seen this morning while still in ICU. RN reported that pt has been refusing PO intake. Current diet consistency NDD1 PUREED solids with NECTAR thick liquids. Pt explained to this TAXICAB STARTER in [place] that he does not like the food served to him. He described enjoying rice, beans, and coffee when asked his favorite foods. Pt initially declined all PO trials. Updated with RN. Laborer Electroplating Magi and RN then entered pt's room with this TAXICAB STARTER. With max education and encouragement, pt accepted a small quantity of ground solids for which he demonstrated a mildly prolonged, but functional oral phase. Pt required max cues to avoid speaking with a bolus in his oral cavity. Pt demonstrated confusion, asking carrier associate and this clinician to take him to the bank. A trial of thin liquid via tsp and clinician controlled cup sips resulted in a wet vocal quality and throat clearing. Updated with RN and MD via secure text re: recommendation to advance to NDD2 GROUND/MECHANICALLY ALTERED solids at this time. Diet updated in [place] by this TAXICAB STARTER. Continue with previously recommended NECTAR THICK liquids, aspiration precautions, and 1:1 assist/supervision with all PO intake. TAXICAB STARTER will continue to follow pt. Link Wire Fabric Machine Tender Clinican/Clinical Fellow: No Supervisory Statement: I have reviewed and agree with the student/clinical fellow's documentation: N/A Speech Language Pathologist: Adelaida He M.A., CCC-TAXICAB STARTER
--- NOTE | 2021-03-10 14:26 | P.PNGI_ITS ---
Subjective Subjective Date of Service: 03/10/21 Critical Care Time (minutes): 0 Comment: alert, no complaints of pain Physical Exam Vital Signs: Vital Signs: Last Vital Signs Temp 98.5 F 03/10/21 12:00 Pulse 83 03/10/21 12:00 Resp 22 H 03/10/21 12:00 BP 132/57 L 03/10/21 12:00 Pulse Ox 93 03/10/21 12:00 Body Mass Index 22.7 GI: Other: abdomen is soft and nontender Objective Data Labs CBC & Chem 7: 03/10/21 05:17 03/10/21 05:17 Procedures Date of Service Date of Service: 03/10/21 Progress Note: A&P Assessment and plan (1) Peptic anastomotic ulcer: Status: Acute Assessment and Plan: hematocrit down slightly, but no melena per nursing continue ppi, diet as tolerated. Fall Risk Details Current Medications: Current Medications Amoxicillin (Amoxicillin 500 Mg Capsule) 1,000 mg PO Q12H [facility] Last Admin: 03/10/21 07:31 Dose: 1,000 mg Documented by: Bisacodyl (Bisacodyl 5 Mg Tablet.Dr) 5 mg PO BEDTIME PRN PRN Reason: Constipation Brimonidine Tartrate (Brimonidine Tartrate 0.2% Oph 5 Ml Bottle) 1 drop EYE- BOTH TID [facility] Last Admin: 03/10/21 07:31 Dose: 1 drop Documented by: Dorzolamide HCl (Dorzolamide Hcl 2 % Ophth Liv 10 Ml Drpbtl) 1 drop EYE-BOTH TID [facility] Last Admin: 03/10/21 07:31 Dose: 1 drop Documented by: Fluticasone/Vilanterol (Fluticasone/Vilanterol 200/25 Blst.W.Dev) 1 puff INHALE RDAILY [facility] Last Admin: 03/10/21 07:45 Dose: 1 puff Documented by: Potassium Chloride 80 meq/Magnesium Sulfate 10 meq/Potassium Phosphate 51 mmol/Calcium Gluconate 9 meq/Multivitamins 12 ml/ Trace Metals 1.2 ml/ Amino Aci ds/Dextrose 1,680 mls @ 70 mls/hr IVCONT DAILY@1800 [facility] Stop: 03/10/21 17:59 Last Admin: 03/09/21 17:48 Dose: 70 mls/hr Documented by: Potassium Chloride 60 meq/Magnesium Sulfate 10 meq/Potassium Phosphate 30 mmol/Calcium Gluconate 9 meq/Multivitamins 12 ml/ Trace Metals 1.2 ml/ Amino Acids/Dextrose 1,680 mls @ 70 mls/hr IVCONT DAILY@1800 [facility] Stop: 03/11/21 17:59 Latanoprost (Latanoprost 0.005 % Ophth Liv 2.5 Ml Drops) 1 drop EYE-BOTH BEDTIME [facility] Last Admin: 03/09/21 19:31 Dose: 1 drop Documented by: Levofloxacin (Levofloxacin 250 Mg Tablet) 250 mg PO Q24H [facility] Last Admin: 03/09/21 14:31 Dose: 250 mg Documented by: Morphine Sulfate (Morphine Sulfate 2 Mg/Ml Cartridge) 2 mg IVPUSH Q4H PRN; Protocol PRN Reason: Pain, Moderate (Pain Scale 4-6 Last Admin: 03/09/21 19:18 Dose: 2 mg Documented by: Olanzapine (Olanzapine 2.5 Mg Tablet) 2.5 mg PO Q12H PRN PRN Reason: anxiety/restlessness Last Admin: 03/08/21 21:38 Dose: 2.5 mg Documented by: Pantoprazole Sodium (Pantoprazole Sodium 40 Mg/10 Ml Vial) 40 mg IVPUSH BID@0630,1630 [facility] Last Admin: 03/10/21 05:04 Dose: 40 mg Documented by: Pharmacy Consult (Consult Rx Vancomycin Dosing) 1 each MISCELLANE DAILY PRN PRN Reason: Consult order Time Spent With Patient Time: Total time spent is greater than 50% in coordination of care (as documented) at patient's floor/unit and/or counseling patient: Time with patient: less than 15 minutes Quality Stroke Does the patient have a stroke diagnosis?: No VTE Prior VTE?: No VTE Risk Level:: Medical - moderate - high VTE Device Contraindication: N/A - Device Ordered VTE Drug Contraindication: Treatment Not Tolerated
--- NOTE | 2021-03-10 15:04 | HO.PM.IMPN ---
Subjective Subjective Date of Service: 03/10/21 Interval History: pt interviewed in American dyspnea improved no fever denies pain Review of Systems Review of Systems: Yes all other systems are reviewed and are negative Physical Exam Vital Signs: Vital Signs: Last Vital Signs Temp 98.5 F 03/10/21 12:00 Pulse 83 03/10/21 12:00 Resp 22 H 03/10/21 12:00 BP 132/57 L 03/10/21 12:00 Pulse Ox 93 03/10/21 12:00 Body Mass Index 22.7 Gen: mild tachypnea on 8L via Barrientos nasal cannula HEENT: sclera anicteric, moist mucus membranes Neck: supple, RIJ 3LC Lungs: a few expiratory rhonchi at the bases Heart: regular rate and rhythm, no murmurs Abd: soft, non-tender, non-distended Ext: no edema Skin: warm/well-perfused Neuro: alert and oriented to self only no focal findings Psych: appropriate affect Objective Data Active Medications Amoxicillin (Amoxicillin 500 Mg Capsule) 1,000 mg PO Q12H [facility] Last Admin: 03/10/21 07:31 Dose: 1,000 mg Documented by: NORMAN Bisacodyl (Bisacodyl 5 Mg Tablet.Dr) 5 mg PO BEDTIME PRN PRN Reason: Constipation Brimonidine Tartrate (Brimonidine Tartrate 0.2% Oph 5 Ml Bottle) 1 drop EYE-BOTH TID [facility] Last Admin: 03/10/21 07:31 Dose: 1 drop Documented by: NORMAN Dorzolamide HCl (Dorzolamide Hcl 2 % Ophth Liv 10 Ml Drpbtl) 1 drop EYE-BOTH TID [facility] Last Admin: 03/10/21 07:31 Dose: 1 drop Documented by: NORMAN Fluticasone/Vilanterol (Fluticasone/Vilanterol 200/25 Blst.W.Dev) 1 puff INHALE RDAILY [facility] Last Admin: 03/10/21 07:45 Dose: 1 puff Documented by: FABIOLA Potassium Chloride 80 meq/Magnesium Sulfate 10 meq/Potassium Phosphate 51 mmol/Calcium Gluconate 9 meq/Multivitamins 12 ml/ Trace Metals 1.2 ml/ Amino Acids/Dextrose 1,680 mls @ 70 mls/hr IVCONT DAILY@1800 [facility] Stop: 03/10/21 17:59 Last Admin: 03/09/21 17:48 Dose: 70 mls/hr Documented by: NORMAN Potassium Chloride 60 meq/Magnesium Sulfate 10 meq/Potassium Phosphate 30 mmol/Calcium Gluconate 9 meq/Multivitamins 12 ml/ Trace Metals 1.2 ml/ Amino Acids/Dextrose 1,680 mls @ 70 mls/hr IVCONT DAILY@1800 [facility] Stop: 03/11/21 17:59 Latanoprost (Latanoprost 0.005 % Ophth Liv 2.5 Ml Drops) 1 drop EYE-BOTH BEDTIME [facility] Last Admin: 03/09/21 19:31 Dose: 1 drop Documented by: ROMA Levofloxacin (Levofloxacin 250 Mg Tablet) 250 mg PO Q24H [facility] Last Admin: 03/09/21 14:31 Dose: 250 mg Documented by: NORMAN Morphine Sulfate (Morphine Sulfate 2 Mg/Ml Cartridge) 2 mg IVPUSH Q4H PRN; Protocol PRN Reason: Pain, Moderate (Pain Scale 4-6 Last Admin: 03/09/21 19:18 Dose: 2 mg Documented by: ROMA Olanzapine (Olanzapine 2.5 Mg Tablet) 2.5 mg PO Q12H PRN PRN Reason: anxiety/restlessness Last Admin: 03/08/21 21:38 Dose: 2.5 mg Documented by: GAGE Pantoprazole Sodium (Pantoprazole Sodium 40 Mg/10 Ml Vial) 40 mg IVPUSH BID@0630,1630 [facility] Last Admin: 03/10/21 05:04 Dose: 40 mg Documented by: ROMA Pharmacy Consult (Consult Rx Vancomycin Dosing) 1 each MISCELLANE DAILY PRN PRN Reason: Consult order Labs CBC & Chem 7: 03/10/21 05:17 03/10/21 05:17 Labs: Laboratory Results - last 24 hr 03/10/21 03/10/21 03/10/21 05:17 05:17 05:17 MCV 80.9 MCH 24.9 L MCHC 30.8 L RDW 18.0 H Plt Count 263 MPV 10.8 Absolute Nucleated RBC 0.000 Nucleated RBC % (auto) 0.0 VBG pH VBG pCO2 VBG pO2 VBG HCO3 VBG O2 Saturation VBG Base Excess Anion Gap 10 L Estim Creat Clear Calc 76.5 Estimated GFR > 60 Random Glucose 173 H Calcium 8.0 L Phosphorus 3.8 Magnesium 1.9 C-Reactive Protein 9.13 H Triglycerides 80 Procalcitonin 0.09 03/10/21 05:22 MCV MCH MCHC RDW Plt Count MPV Absolute Nucleated RBC Nucleated RBC % (auto) VBG pH 7.49 H VBG pCO2 35 VBG pO2 46 VBG HCO3 27 H VBG O2 Saturation 74.0 VBG Base Excess 4.0 Anion Gap Estim Creat Clear Calc Estimated GFR Random Glucose Calcium Phosphorus Magnesium C-Reactive Protein Triglycerides Procalcitonin Microbiology Microbiology Results: Microbiology 03/09/21 05:32 Blood Culture - Preliminary Blood - Venous No growth after 24 hours. 03/09/21 05:38 Blood Culture - Preliminary Blood - Venous No growth after 24 hours. 03/07/21 05:50 Blood Culture - Final Blood - Venous Coag negative Staphylococcus Assessment and Plan (1) Gastric carcinoma: Status: Acute (2) Aspiration pneumonitis: Status: Acute (3) Acute respiratory failure without hypercapnia: Status: Acute Assessment and Plan: hospital d#9 81yo M SNF residnet with HTN, COPD on home O2, ILD, DM2, GERD, PUD s/p Bilroth 2, hx EtOH abuse presented for elective EGD due to subacute GI blood loss anemia, early satiety, weight loss, epigastric pain found to have ulcer at GJ anastomosis with partial obstruction, no active bleeding EGD compllicated by regurgitation + hypoxia requiring intubation reintubated postprocedurally and treated with vasopressors, volume resuscitation, antibiotics, and transfusion for pneumonia extubated on 03/07/21 weaned off dexmetetomidine 03/08/21 stepeed down to M/S 03/09/21 pathology from EGD showed adenoCA in anastomotic ulcer + H pylori # metabolic encephalopathy - dexmetomidine -> clonidine -> prn olanzapine # aspiration PNA - resolved, off ABX [got for 5d] # blood loss anemia - Hb stable after 3u pRBCs transfused # gastric adenoCA - Oncology consult- Dr Prather- outpt PET/CT + f/u # H pylori gastritis - amoxicillin + levofloxacin + PPI x10d # hypoK - replete # 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
[2021-03-10] MEDS: levoFLOXacin 250 MG TABLET PO (16:46)
--- NOTE | 2021-03-10 19:23 | PC.NURSE ---
At approximately 1845 the patient pulled out the triple lumen from his right IJ.
[2021-03-10] MEDS: Latanoprost 0.005 % Ophth Sol 2.5 ML DROPS 1 DROP EYE-BOTH (21:07)
[2021-03-11] VITALS (8 sets, daily range): BP systolic 116–139; BP diastolic 55–68; PULSE 80–96; RESP 17–22; TEMP 36.5–37.1; O2SAT 92–98; BMI 24.5
[2021-03-11 05:33] LABS: VBG Base Excess 2.2 mmol/L; VBG HCO3 25 mmol/L (22-26); VBG pCO2 35 mmHg; VBG pH 7.46 (7.32-7.43); VBG pO2 43 mmHg
[2021-03-11 05:41] LABS: Venous Blood Gas Refer to POC result
[2021-03-11 05:47] LABS: Hematocrit 29.2 % (42.0-52.0); Mean Corpuscular HGB Conc 30.8 g/dl (31.0-36.0); Mean Corpuscular Hemoglobin 24.6 pg (27.0-33.0); Mean Corpuscular Volume 79.8 fL (80.0-98.0); Mean Platelet Volume 11.4 fL (9.4-12.4); Platelet Count 318 X10*3/uL (160-400); Red Blood Count 3.66 X10*6/uL (4.60-5.80); Red Cell Distribution Width 18.1 % (11.0-16.0); White Blood Count 12.3 X10*3/uL (4.8-10.8)
[2021-03-11 06:06] LABS: Anion Gap 13 (12-20); Blood Urea Nitrogen 24 mg/dL (9-16); Calcium 8.4 mg/dL (8.4-10.2); Carbon Dioxide 23 mmol/L (22-29); Chloride 107 mmol/L (96-108); Creatinine Clr Calc Pharmacy 72.1; Estimated Glomerular Filt Rate > 60; Glucose Random 117 mg/dL (60-115); Potassium 3.6 mmol/L (3.3-5.1); Sodium 139 mmol/L (135-145)
[2021-03-11] MEDS: Pantoprazole Sodium 40 MG/10 ML VIAL IVPUSH ×2 (06:43→15:13)
[2021-03-11] MEDS: Fluticasone/Vilanterol 200/25 BLST.W.DEV 1 PUFF INHALE (07:41)
[2021-03-11] MEDS: Amoxicillin 500 MG CAPSULE 1000 MG PO ×2 (08:20→20:29)
[2021-03-11] MEDS: Dorzolamide HCl 2 % Ophth Sol 10 ML DRPBTL 1 DROP EYE-BOTH ×3 (08:24→20:30)
[2021-03-11] MEDS: Brimonidine Tartrate 0.2% Oph 5 ML BOTTLE 1 DROP EYE-BOTH ×3 (08:24→20:30)
--- NOTE | 2021-03-11 09:35 | MHC.CM.PN ---
[facility] IN [facility]. CASE MANAGEMENT TO CONTINUE TO FOLLOW FOR PATIENT'S RETURN.
--- NOTE | 2021-03-11 11:20 | HO.PM.IMPN ---
Subjective Subjective Date of Service: 03/11/21 Interval History: Pulled out his CVC overnight. On 7L O2 via [place]. Confused, thinks he is going to renew his passport today. Does not like pureed or ground mechanical diet. No dyspnea. Review of Systems Review of Systems: Yes all other systems are reviewed and are negative Physical Exam Vital Signs: Vital Signs: Last Vital Signs Temp 97.9 F 03/11/21 07:40 Pulse 94 03/11/21 07:42 Resp 18 03/11/21 07:40 BP 127/62 03/11/21 07:40 Pulse Ox 98 03/11/21 07:40 Body Mass Index 24.5 Gen: dyspnea with exertion HEENT: sclera anicteric, moist mucus membranes Neck: supple Lungs: clear bilateerally Heart: regular rate and rhythm, no murmurs Abd: soft, non-tender, non-distended Ext: no edema Skin: warm/well-perfused Neuro: alert and oriented to self only Psych: impaired insight Objective Data Active Medications Albuterol/Ipratropium (Albuterol/Iprat 2.5/0.5mg 3 Ml Ampul.Neb) 3 ml INHALE Q4H PRN PRN Reason: Shortness Of Breath/wheeze Amoxicillin (Amoxicillin 500 Mg Capsule) 1,000 mg PO Q12H [facility] Last Admin: 03/11/21 08:20 Dose: 1,000 mg Documented by: RYLIE Bisacodyl (Bisacodyl 5 Mg Tablet.Dr) 5 mg PO BEDTIME PRN PRN Reason: Constipation Brimonidine Tartrate (Brimonidine Tartrate 0.2% Oph 5 Ml Bottle) 1 drop EYE-BOTH TID [facility] Last Admin: 03/11/21 08:24 Dose: 1 drop Documented by: RYLIE Dorzolamide HCl (Dorzolamide Hcl 2 % Ophth Liv 10 Ml Drpbtl) 1 drop EYE-BOTH TID [facility] Last Admin: 03/11/21 08:24 Dose: 1 drop Documented by: RYLIE Fluticasone/Vilanterol (Fluticasone/Vilanterol 200/25 Blst.W.Dev) 1 puff INHALE RDAILY [facility] Last Admin: 03/11/21 07:41 Dose: 1 puff Documented by: HO.ULRICC Potassium Chloride 60 meq/Magnesium Sulfate 10 meq/Potassium Phosphate 30 mmol/Calcium Gluconate 9 meq/Multivitamins 12 ml/ Trace Metals 1.2 ml/ Amino Acids/Dextrose 1,680 mls @ 70 mls/hr IVCONT DAILY@1800 [facility] Stop: 03/11/21 17:59 Last Admin: 03/10/21 17:41 Dose: 70 mls/hr Documented by: MICHELL Latanoprost (Latanoprost 0.005 % Ophth Liv 2.5 Ml Drops) 1 drop EYE-BOTH BEDTIME [facility] Last Admin: 03/10/21 21:07 Dose: 1 drop Documented by: DESTIN Levofloxacin (Levofloxacin 250 Mg Tablet) 250 mg PO Q24H [facility] Last Admin: 03/10/21 16:46 Dose: 250 mg Documented by: MICHELL Morphine Sulfate (Morphine Sulfate 2 Mg/Ml Cartridge) 2 mg IVPUSH Q4H PRN; Protocol PRN Reason: Pain, Moderate (Pain Scale 4-6 Last Admin: 03/09/21 19:18 Dose: 2 mg Documented by: ROMA Olanzapine (Olanzapine 2.5 Mg Tablet) 2.5 mg PO Q12H PRN PRN Reason: anxiety/restlessness Last Admin: 03/08/21 21:38 Dose: 2.5 mg Documented by: AGGE Pantoprazole Sodium (Pantoprazole Sodium 40 Mg/10 Ml Vial) 40 mg IVPUSH BID@0630,1630 [facility] Last Admin: 03/11/21 06:43 Dose: 40 mg Documented by: DESTIN Pharmacy Consult (Consult Rx Vancomycin Dosing) 1 each MISCELLANE DAILY PRN PRN Reason: Consult order Labs CBC & Chem 7: 03/11/21 05:23 03/11/21 05:23 Labs: Laboratory Results - last 24 hr 03/11/21 03/11/21 03/11/21 05:23 05:23 05:24 MCV 79.8 L MCH 24.6 L MCHC 30.8 L RDW 18.1 H Plt Count 318 MPV 11.4 Absolute Nucleated RBC 0.000 Nucleated RBC % (auto) 0.0 VBG pH 7.46 H VBG pCO2 35 VBG pO2 43 VBG HCO3 25 VBG O2 Saturation 63.0 VBG Base Excess 2.2 Anion Gap 13 Estim Creat Clear Calc 72.1 Estimated GFR > 60 Random Glucose 117 H Calcium 8.4 Microbiology Microbiology Results: Microbiology 03/09/21 05:32 Blood Culture - Preliminary Blood - Venous No growth after 48 hours. 03/09/21 05:38 Blood Culture - Preliminary Blood - Venous No growth after 48 hours. Assessment and Plan (1) Gastric carcinoma: Status: Acute (2) Aspiration pneumonitis: Status: Acute (3) Acute respiratory failure without hypercapnia: Status: Acute Assessment and Plan: hospital d#10 81yo M SNF residnet with HTN, COPD on home O2, ILD, DM2, GERD, PUD s/p Bilroth 2, hx EtOH abuse presented for elective EGD due to subacute GI blood loss anemia, early satiety, weight loss, epigastric pain found to have ulcer at GJ anastomosis with partial obstruction, no active bleeding EGD compllicated by regurgitation + hypoxia requiring intubation reintubated postprocedurally and treated with vasopressors, volume resuscitation, antibiotics, and transfusion for aspiration pneumonia extubated on 03/07/21 weaned off dexmetetomidine 03/08/21 stepeed down to M/S 03/09/21 pathology from EGD showed adenoCA in anastomotic ulcer + H pylori # metabolic/critical care encephalopathy - dexmetomidine -> clonidine -> prn olanzapine # aspiration PNA - resolved, off ABX [got for 5d], BCx negative # blood loss anemia - Hb stable after 3u pRBCs transfused # gastric adenoCA - Oncology consulted- Dr Prather- outpt PET/CT + f/u # H pylori gastritis - amoxicillin + levofloxacin + PPI d#07/08 # hypoK - repleted # 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
--- NOTE | 2021-03-11 12:54 | MHC.SL.SWA ---
Speech Pathologist Impression: Oralpharyngeal Dysphagia Risk of Aspiration Due to: History of Pneumonia Hx of Recent Extubation Dysphasia Diet Status: Upgrade Liquid Consistency and Strategies for Safe Swallow: Liquid Intake Recommendation: [place] Thick Liquid Intake Strategies: Small Sips No Straws Liquids from spoon with Small sips from cup, when strictly supervised. Solid Food Consistency: Dietary Recommendations: Advanced/Soft Mechanical (NDD3) Additional Modifications to Solid Foods: extra sauce/gravy on meats Oral Medication Intake: Crushed with Puree Compensatory Strategies and Precautions to be Taken for Safe Swallow: Sitting Upright (90 deg) No Straw Liquids from Spoon Alternate Liquids/Solids Oral Check Supervision While Eating and Drinking for Safe Swallow: Total Supervision (1:1) Foods to Avoid: Swallowing Recommended Treatments: Compens. Strategy Educat. Recommendation for Speech: Inpatient Speech Therapy Comment: 03/11: Pt. seen today with request from RN to evaluate to advance diet, as Pt refusing food due to taste and quality. Pt was seated upright in chair, has nasal cannula, had dentures in place. Pt managed solid texture with some residual cleared by sip of liquid on trial today. Pt took small sips, when directed, from cup, but remains at risk for impulsively drinking rapidly if not closely supervised. Updated with RN and MD via secure text re: recommendation to advance to NDD3 Advanced/Soft solids at this time. Continue with previously recommended NECTAR THICK liquids, aspiration precautions, and 1:1 assist/supervision with all PO intake. CONVEYOR MAINTENANCE MECHANIC will continue to follow pt. Frequency/Duration: Date Range for Service Req: Timeline to reassess: Biophysics Scientist Clinican/Clinical Fellow: No Supervisory Statement: I have reviewed and agree with the student/clinical fellow's documentation: N/A Speech Language Pathologist: Marilu Chavez M.A., [facility]-CONVEYOR MAINTENANCE MECHANIC
--- NOTE | 2021-03-11 13:22 | MHC.CLN ---
Addendum entered by Niurka Garvin, LEO 03/11/21 14:23: agree with provider's assessment below Original Note: F/U TPN DISCONTINUED SPEECH ADVANCED DIET TO ADVANCED/SOFT MECHANICAL (NDD3) WITH NT LIQUIDS PT'S PO INTAKE DOCUMENTED 25% PT RECEIVING STRAWBERRY ENSURE TID TO PROVIDE 1050 KCALS AND 60 GRAMS PROTEIN MONITOR PO INTAKE CLOSELY
[2021-03-11] MEDS: levoFLOXacin 250 MG TABLET PO (15:13)
[2021-03-11] MEDS: Latanoprost 0.005 % Ophth Sol 2.5 ML DROPS 1 DROP EYE-BOTH (20:30)
[2021-03-12 04:00] VITALS: BP 118/56; PULSE 88; RESP 17; TEMP 36.4; O2SAT 95
[2021-03-12 06:00] VITALS: BMI 21.5
[2021-03-12 06:00] LABS: Anion Gap 11 (12-20); Blood Urea Nitrogen 27 mg/dL (9-16); Calcium 8.1 mg/dL (8.4-10.2); Carbon Dioxide 22 mmol/L (22-29); Chloride 109 mmol/L (96-108); Creatinine Clr Calc Pharmacy 68.2; Estimated Glomerular Filt Rate > 60; Glucose Random 108 mg/dL (60-115); Potassium 3.4 mmol/L (3.3-5.1); Sodium 139 mmol/L (135-145)
[2021-03-12] MEDS: Amoxicillin 500 MG CAPSULE 1000 MG PO (07:49)
[2021-03-12] MEDS: Brimonidine Tartrate 0.2% Oph 5 ML BOTTLE 1 DROP EYE-BOTH ×2 (07:50→14:48)
[2021-03-12] MEDS: Dorzolamide HCl 2 % Ophth Sol 10 ML DRPBTL 1 DROP EYE-BOTH ×2 (07:50→14:48)
[2021-03-12 08:00] VITALS: BP 108/55; PULSE 84; RESP 18; TEMP 36.9; O2SAT 94
[2021-03-12 08:25] LABS: COVID-19 Test Negative (Negative); IDNOW Serial# 55D5AD1C
[2021-03-12 08:45] VITALS: O2SAT 95
--- NOTE | 2021-03-12 10:34 | PM.DS ---
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 Has provider been notified: Yes 03/07/21 12:57 Consult to Infectious Diseases Stat Consulting Provider: Zhane Malloy Reason for consultation: pneumonia DS: Diagnosis Discharge Diagnosis (1) Gastric carcinoma: Status: Acute (2) Aspiration pneumonitis: Status: Acute (3) Acute respiratory failure without hypercapnia: Status: Acute (4) Acute blood loss anemia: Status: Acute (5) Upper GI bleeding: Status: Acute (6) Peptic anastomotic ulcer: Status: Acute (7) H/O Billroth II operation: Status: Acute (8) Metabolic encephalopathy: Status: Acute (9) Moderate protein-calorie malnutrition: Status: Acute DS: Summary Hospital Course Hospital Course: from admission history and physical by director process Gisele De Santiago MD, 03/02/21: 80-year-old male who status post Billroth II procedure developed subacute GI blood loss anemia as well as early satiety and weight loss and upper abdominal pain and had upper endoscopy noting an anastomotic ulcer with outlet obstruction significant gastric distension and probable active bleeding biopsies were taken but there was witnessed aspiration as a complication requiring him to be intubated Besides being anemic he has got significant eosinophilia and as well as COPD he has got extensive interstitial fibrosis Currently on propofol breathing comfortably he has got positive the neck veins and he has adequate bilateral carotid upstrokes in sinus rhythm but I need updated labs and EKG and bedside echo shows normal LV and RV size and systolic function with globally normal wall motion No primary valve or pericardial disease No measurable pulmonary hypertension And IVC diameter was normal with inspiratory collapse so clearly still room for IV fluid ICU course as per director process Moustapha Arguello MD, 03/09/21: Mr. Webster was admitted to the ICU on March 02, after requiring tracheal intubation following aspiration during elective upper endoscopy. The patient is an 80-year-old male with past medical history of hypertension, COPD on home oxygen, who also has significant interstitial lung dz (based on CXR of 01/11/21).? Also has h/o diabetes, GERD, past alcohol abuse, and peptic ulcer disease.? It?s unclear whether not the patient previously had stomach cancer.? He is status post a Billroth II procedure, presumably for PUD. The [facility].? He is reportedly independent with ADLs, and ambulatory with a walker, otherwise uses a wheelchair.? He is primarily [place] speaking but understands some Chadian. On March 02, the patient presented for elective EGD because of subacute GI blood loss anemia as well as early satiety, weight loss, and upper abdominal pain.? At EGD, he was found to have an ulcer at the gastrojejunal anastomosis with partial anastomotic obstruction.? No active bleeding was noted.? He had significant gastric distention with some retained food/liquid in the stomach.? During the procedure, there was regurgitation and hypoxemia, suggesting aspiration.? The patient was intubated in order to complete the procedure. ?Following completion of the procedure, the patient was extubated, but required re-intubation because of labored breathing with hypoxemia. Following that the patient was admitted to the ICU, where chest x-ray showed increased interstitial prominence compared to baseline, and subtle new patchy opacities in the lung bases.? He was put on Abx and required vasopressors, volume resuscitation, transfusion of RBCs, and central line placement.? On bedside echo, LV and RV function look normal, but RVSP estimate was 75 mm. 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 On 03/05, KAMALA Ji spoke with the patient?s HCP (his son Jensen) about code status.? The family wished to maintain the patient with full code status.? Sputum Gram stain showed 1+ polys and no organisms..? The patient was extubated on Mar 07 and has been on high flow.? He required Precedex for agitation control.? Zosyn was stopped on Mar 07 and vancomycin was continued.? Blood cultures drawn Mar 07 because of a temperature spike grew out 1/4 bottles with Coag negative Staph at 29 hours.? The other BC bottles are still negative. Yesterday we got the patient off Precedex with clonidine and Zyprexa.? He?s been calm since then and has not required further SAFETY ADMIN ASSISTANT agents, altho he remains largely not oriented.? I reecho?d him yesterday, confirming his RVSP estimate of about 74mm.? He remained on the HFNC on 55% FiO2 with very mildly increased WOB.? T-max yesterday was 102 degrees. Today, his breathing definitely looks a little easier.? He remains calm, looks less toxic.? No complaints of abdominal pain today after 2 bowel movements last night.? Oxygenation is significantly improved, and FiO2 is down to 40%/40L flow, w SpO2 low 90s.? Central venous blood gas this morning showed 7.50/37/+6.? HR 90s, SR.? BP 110/53, on no pressors.? He is afebrile so far today.? He knows his name but is not oriented to place or time.? No JVD at 30-40?.? Chest is crystal CTA, w normal exp phase.? Soft heart tones, I heard no murmur or gallops.? Abdomen is flatter today, and softer.? He has good bowel sounds.? The belly is soft with no tenderness to deep palpation.? He has no peripheral edema. He was stepped down to the medical-surgical floor. He self-discontinued his central line. TPN was discontinued and diet advanced to NDD3 solids and nectar-thick liquids with 1 can of Ensure tid. He was weaned to supplemental oxygen via nasal cannula. His mental status improved. Antibiotics were stopped after 5 days. He was discharged back to [facility] for [facility] care. He will need follow-up with Dr Madonna Prather from Oncology for outpatient PET/CT and planning for chemotherapy for the gastric cancer. He should also have GI follow-up. Time Spent with Patient Time attestation: Total time spent providing and/or coordinating discharge services: Discharge coordination time: Greater than 30 minutes Quality: Stroke Does the patient have a stroke diagnosis?: No Physical Exam Vital Signs: Vital Signs: Last Vital Signs Temp 98.5 F 03/12/21 08:00 Pulse 84 03/12/21 08:00 Resp 18 03/12/21 08:00 BP 108/55 L 03/12/21 08:00 Pulse Ox 95 03/12/21 08:45 Body Mass Index 21.5 DS: Data Data Completed and Pending Completed studies during hospitalization [Text1]: Pending at discharge 03/02/21 10:54 Surgical [PTH] Routine Labs on day of discharge: Laboratory Results - last 24 hr 03/12/21 03/12/21 05:21 07:44 Sodium 139 Potassium 3.4 Chloride 109 H Carbon Dioxide 22 Anion Gap 11 L BUN 27 H Creatinine 0.74 Estim Creat Clear Calc 68.2 Estimated GFR > 60 Random Glucose 108 Calcium 8.1 L COVID-19 (ANGIE) Negative COVID-19 Clin Com See Note Preliminary micro results at discharge 03/09/21 05:32 Blood Culture - Preliminary Blood - Venous No growth after 48 hours. 03/09/21 05:38 Blood Culture - Preliminary Blood - Venous No growth after 48 hours. Discharge Plan Discharge Patient Disposition: [facility] Discharge Diagnosis: aspiration pneumonia, gastric adenocarcinoma Referrals: Deng Cook [Physician] - 1 Week Madonna Prather MD [Physician] - 1 Week Sravanthi Sheets MD [Primary Care Provider] - 1 Week Discharge Medications: New amoxicillin 500 mg Capsule 1,000 mg PO Q12H Qty: 24 RF: 0 ipratropium-albuterol 0.5 mg-3 mg(2.5 mg base)/3 mL Solution For Nebulization 3 ml inhalation Q4H PRN (Reason: Shortness Of Breath/wheeze) Qty: 1 RF: 0 levofloxacin 250 mg Tablet 250 mg PO Q24H Qty: 6 RF: 0 Continued ondansetron HCl [Zofran] 4 mg tablet 4 mg PO Q6H PRN (Reason: nausea and vomiting) Qty: 14 RF: 0 sucralfate [Carafate] 100 mg/mL suspension 10 ml PO BID Qty: 420 RF: 0 latanoprost [Xalatan] 0.005 % Drops 1 drp OPHTHALMIC (EYE) QPM RF: 0 trazodone 50 mg Tablet 150 mg PO BEDTIME RF: 0 polyethylene glycol 3350 [Miralax] 17 gram Powder In Packet 17 g PO QAM RF: 0 cetirizine 10 mg Tablet 10 mg PO QAM RF: 0 pantoprazole 40 mg Tablet,Delayed Release (Dr/Ec) 40 mg PO BID RF: 0 ferrous sulfate 325 mg (65 mg iron) Tablet 325 mg PO BID RF: 0 fluticasone propion-salmeterol [Wixela Inhub] 500-50 mcg/dose Blister With Device 1 inh INHALATION BID RF: 0 brimonidine 0.2 % Drops 1 drp OPHTHALMIC (EYE) TID RF: 0 bisacodyl [Dulcolax (bisacodyl)] 5 mg Tablet,Delayed Release (Dr/Ec) 5 mg PO QAM RF: 0 ergocalciferol (vitamin D2) [Vitamin D2] 1,250 mcg (50,000 unit) Capsule 1,250 mcg PO QMONTH RF: 0 sertraline 50 mg Tablet 50 mg PO QAM RF: 0 dorzolamide 2 % Drops 1 drp OPHTHALMIC (EYE) TID RF: 0 lactulose 10 gram/15 mL Solution 30 ml PO TID RF: 0 Incruse Ellipta 62.5 mcg/actuation Blister With Device 1 inh INHALATION QAM RF: 0 Discharge Orders: Discharge Order (Routine); Ordered 03/12/21 Ordered By: Eladia Hay Diet: advance to usual diet Activity on Discharge: As tolerated Stand Alone Forms: Patient Portal Discharge page Activity Restrictions/Additional Instructions: diet: regular diet with NDD3 solids and nectar thick liquids; 1 can of Ensure tid Care Plan Goals: recovery from pneumonia staging and treatment of gastric cancer Health Concerns: hypoxia gastric cancer aspiration pneumonia Plan of Treatment: wean oxygen as needed follow up with Dr Prather from Oncology in 1-2 weeks follow up with Dr Cook from Gastroenterology in 1-2 weeks Assessment: See Discharge Summary Patient Instructions: Stomach Cancer (DC)
[2021-03-12 11:56] VITALS: BP 125/63; PULSE 83; RESP 18; TEMP 36.5; O2SAT 93
--- NOTE | 2021-03-12 12:02 | MHC.CM.PN ---
MESSAGE LEFT FOR [facility] CHRISTIANO RN LUCIO @ [phone] REQUEST TO CALL BACK THIS OFFICE LEAD LEFT ON VOICEMAIL. CALL TO [facility] ADMISSIONS AND MESSAGE LEFT FOR A CALL BACK TO THIS OFFICE LEAD. NO CALL BACK RECEIVED. CALL BACK TO [facility] TO SPEAK WITH RENA BANDA ([phone]) AND DETAILED MESSAGE LEFT FOR A CALL BACK TO THIS OFFICE LEAD.
--- NOTE | 2021-03-12 12:07 | MHC.CM.PN ---
Addendum entered by Irasema Jama 03/12/21 12:47: [facility] REQUEST FOR 1400 TRANSFER BACK TO FACILITY. SO, SHARMIN [phone] MADE AWARE OF PLAN AND CALL BACK NUMBER FOR THIS RADIOLOGICAL EQUIPMENT SPECIALIST LEFT ON VOICEMAIL. IMM 03/12 TO BE MAILED CERTIFIED Original Note: CALL FROM [employer] PIP[employer] ASSEMBLER OLIVIA WHO STATES THAT PATIENT IS LTC AND VERIFIES THAT 2 OM FROM [facility] IS A GOOD DC TIME.
--- NOTE | 2021-03-12 12:23 | MHC.SL.DTX ---
Dysphagia Diet modifications: Last documented Solid diet consistencies: Chopped/Advanced (NDD3) Last documented Liquid consistency: [place] Thick Last documented Medication Administration:Crushed with Puree Changes made to current diet?: No: Continue with previously recommended NDD3 CHOPPED/ADVANCED solids and NECTAR thick liquids Liquid Consistency and Strategies: Liquid Intake Recommendation: [place] Thick Compensatory Strategies for Safe Swallow: Small Sips No Straws Compensatory Strategies for Safe Swallow(b): Sitting Upright (90 deg) No Straw Liquids from Spoon Alternate Liquids/Solids Oral Check Solid Food Consistency: Dietary Recommendations: Chopped/Advanced (NDD3) Additional Modifications to Solids: extra sauce/gravy on meats Oral Medication Intake: Crushed with Puree Strategies and Precautions to be Taken for Safe Swallow: Sitting Upright (90 deg) No Straw Liquids from Spoon Alternate Liquids/Solids Oral Check Supervision While Eating and/Drinking: Total Supervision (1:1) Foods to Avoid: Foods with small grains (e.g. rice), high contrast in textures (e.g. solids with liquid). Provide gravy with solids. Swallowing Recommended Treatments: Compens. Strategy Educat. Level of Impact on: Daily activities: Severe Education: Severe Employment: Severe Community: Severe Prognosis for Improvement: Guarded Recommendation for Speech: Inpatient Speech Therapy Pt was seen for dysphagia treatment while seated upright in bed. Reviewed pt's current diet consistency (NDD3 CHOPPED/ADVANCED solids and NECTAR THICK liquids) with COMPUTER PROGRAMMER ANALYST, as pt had an empty pitcher of ice water with a straw in the pitcher he had drank prior to this FEED AND FARM MANAGEMENT ADVISER's arrival. Pt declined all solids offered. Per pt's meal tracking board in his room, pt had consumed 25% of his breakfast 03/11 and refused both lunch and dinner yesterday. Pt demonstrated overt s/s aspiration with a trial of thin water presented via cup sip. Pt independently drank using small sips, though elicited delayed, weak coughing. Pt reported (in Khmer) that he is being discharged home this afternoon. Updated with RN via secure [place] message. Continue with previously recommended NDD3 CHOPPED/ADVANCED solids and NECTAR THICK liquids, aspiration precautions, and 1:1 assist/supervision with all PO intake. FEED AND FARM MANAGEMENT ADVISER will continue to follow pt. Assessment: Hospice Home Health Aide Clinican/Clinical Fellow: No Supervisory Statement: I have reviewed and agree with the student/clinical fellow's documentation: N/A Speech Language Pathologist: Adelaida He M.A., [facility]-FEED AND FARM MANAGEMENT ADVISER
--- NOTE | 2021-03-12 13:15 | HO.PM.IMPN ---
Subjective Subjective Date of Service: 03/12/21 Interval History: O2 req down to 5L via NC good appetite minimal abd discomfort Review of Systems Review of Systems: Yes all other systems are reviewed and are negative Physical Exam Vital Signs: Vital Signs: Last Vital Signs Temp 97.7 F 03/12/21 11:56 Pulse 83 03/12/21 11:56 Resp 18 03/12/21 11:56 BP 125/63 03/12/21 11:56 Pulse Ox 93 03/12/21 11:56 Body Mass Index 21.5 Gen: NAD HEENT: sclera anicteric, moist mucus membranes Neck: supple Lungs: clear bilateerally Heart: regular rate and rhythm, no murmurs Abd: soft, non-tender, non-distended Ext: no edema Skin: warm/well-perfused Neuro: alert and oriented to self only Psych: impaired insight Objective Data Active Medications Albuterol/Ipratropium (Albuterol/Iprat 2.5/0.5mg 3 Ml Ampul.Neb) 3 ml INHALE Q4H PRN PRN Reason: Shortness Of Breath/wheeze Amoxicillin (Amoxicillin 500 Mg Capsule) 1,000 mg PO Q12H [facility] Last Admin: 03/12/21 07:49 Dose: 1,000 mg Documented by: RYLIE Bisacodyl (Bisacodyl 5 Mg Tablet.Dr) 5 mg PO BEDTIME PRN PRN Reason: Constipation Brimonidine Tartrate (Brimonidine Tartrate 0.2% Oph 5 Ml Bottle) 1 drop EYE-BOTH TID [facility] Last Admin: 03/12/21 07:50 Dose: 1 drop Documented by: RYLIE Dorzolamide HCl (Dorzolamide Hcl 2 % Ophth Liv 10 Ml Drpbtl) 1 drop EYE-BOTH TID [facility] Last Admin: 03/12/21 07:50 Dose: 1 drop Documented by: RYLIE Fluticasone/Vilanterol (Fluticasone/Vilanterol 200/25 Blst.W.Dev) 1 puff INHALE RDAILY [facility] Last Admin: 03/12/21 07:50 Dose: Not Given Documented by: MEGAN Non-Admin Reason: Patient Refused Latanoprost (Latanoprost 0.005 % Ophth Liv 2.5 Ml Drops) 1 drop EYE-BOTH BEDTIME [facility] Last Admin: 03/11/21 20:30 Dose: 1 drop Documented by: DESTIN Levofloxacin (Levofloxacin 250 Mg Tablet) 250 mg PO Q24H [facility] Last Admin: 03/11/21 15:13 Dose: 250 mg Documented by: RYLIE Olanzapine (Olanzapine 2.5 Mg Tablet) 2.5 mg PO Q12H PRN PRN Reason: anxiety/restlessness Last Admin: 03/08/21 21:38 Dose: 2.5 mg Documented by: GAGE Pharmacy Consult (Consult Rx Vancomycin Dosing) 1 each MISCELLANE DAILY PRN PRN Reason: Consult order Labs CBC & Chem 7: 03/11/21 05:23 03/12/21 05:21 Labs: Laboratory Results - last 24 hr 03/12/21 03/12/21 05:21 07:44 Anion Gap 11 L Estim Creat Clear Calc 68.2 Estimated GFR > 60 Random Glucose 108 Calcium 8.1 L COVID-19 (ANGIE) Negative COVID-19 Clin Com See Note Microbiology Microbiology Results: Microbiology 03/07/21 05:50 Blood Culture - Final Blood - Venous No growth after 5 days. Assessment and Plan (1) Gastric carcinoma: Status: Acute (2) Aspiration pneumonitis: Status: Acute (3) Acute respiratory failure without hypercapnia: Status: Acute Assessment and Plan: hospital d#11 81yo M care home SNF resident with HTN, COPD on home O2, ILD, DM2, GERD, PUD s/p Bilroth 2, hx EtOH abuse presented for elective EGD due to subacute GI blood loss anemia, early satiety, weight loss, epigastric pain found to have ulcer at GJ anastomosis with partial obstruction, no active bleeding EGD compllicated by regurgitation + hypoxia requiring intubation reintubated postprocedurally and treated with vasopressors, volume resuscitation, antibiotics, and transfusion for aspiration pneumonia extubated on 03/07/21 weaned off dexmetetomidine 03/08/21 stepeed down to M/S 03/09/21 pathology from EGD showed adenoCA in anastomotic ulcer + H pylori # metabolic/critical care encephalopathy - dexmetomidine -> clonidine -> prn olanzapine # aspiration PNA - resolved, off ABX [got for 5d], BCx negative # blood loss anemia - Hb stable after 3u pRBCs transfused # gastric adenoCA - Oncology consulted- Dr Prather- outpt PET/CT + f/u # H pylori gastritis - amoxicillin + levofloxacin + PPI d#08/08 # hypoK - repleted # 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
--- NOTE | 2021-03-12 13:34 | MHC.CM.PN ---
THIS BOOKER SPOKE WITH [facility] VARGAS Andrews ([phone]) VARGAS TELLS THIS BOOKER THAT SHE CAN NOT ACCEPT THE PATIENT BACK SKILLED UNTIL FACILITY HAS INSURANCE AUTHORIZATION TO DO SO. 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 VARGAS STATES THAT THEY ARE CERTAINLY TAKING PATIENT BACK, BUT HAVE TO WAIT UNTIL AUTHORIZATION IS RECEIVED FROM [facility]. IT WAS AGAIN EXPLAINED THAT DISCHARGE CANNOT BE HELD UP ON A LTC PATIENT UNTIL THE FACILITY HAS APPROVAL TO SKILL HIM. CALL THEN PLACED TO LUCIO SALAZAR (CHRISTIANO RN FOR [facility]) @ [phone] PER CONVERSATION, LUCIO IS SENDING AUTHORIZATION FOR PATIENT TO RETURN TO FACILITY RETIREMENT LUCIO IS GOING TO INFORM THE FACILITY HERSELF. CASE MANAGEMENT COTTON STOMPER AWARE AND SPOKE WITH FACILITY. FACILITY IS AWARE OF PATIENT'S RETURN
[2021-03-12] MEDS: levoFLOXacin 250 MG TABLET PO (14:48)
[2021-03-12 14:56] VITALS: O2SAT 91
== END 2021-03-12 16:15 | disposition skilled nursing facility (03) | DRG 374 ==
LOC: HO.ICU 13:12 → HO.S3 03-10 13:11
PROVIDERS: Anesthesiology; Internal Medicine Gastroenterology; Internal Medicine Pulmonary Disease; Physician Assistant Medical; Admitting Provider Internal Medicine Cardiovascular Disease; PCP Internal Medicine; Visit Provider Family Medicine
PROC: 0DJ08ZZ Inspection of Upper Intestinal Tract, Via Natural or Artificial Opening Endoscopic (ICD-10-PCS; CPT 43235; principal; 2021-03-02 10:20)
DX: C16.4 Malignant neoplasm of pylorus (principal); K28.4 Chronic or unspecified gastrojejunal ulcer with hemorrhage; J96.01 Acute respiratory failure with hypoxia; J69.0 Pneumonitis due to inhalation of food and vomit; G93.41 Metabolic encephalopathy; K29.61 Other gastritis with bleeding; K91.89 Other postprocedural complications and disorders of digestive system; J95.89 Other postprocedural complications and disorders of respiratory system, not elsewhere classified; K31.1 Adult hypertrophic pyloric stenosis; E44.0 Moderate protein-calorie malnutrition; D62 Acute posthemorrhagic anemia; Z99.81 Dependence on supplemental oxygen; F10.11 Alcohol abuse, in remission; I27.29 Other secondary pulmonary hypertension; B96.81 Helicobacter pylori [H. pylori] as the cause of diseases classified elsewhere; I27.81 Cor pulmonale (chronic); J44.9 Chronic obstructive pulmonary disease, unspecified; D63.0 Anemia in neoplastic disease; Z68.21 Body mass index [BMI] 21.0-21.9, adult; Z20.822 Contact with and (suspected) exposure to COVID-19; Z79.51 Long term (current) use of inhaled steroids; Z79.899 Other long term (current) drug therapy
CPT/HCPCS: 36415; 36600; 71045; 80048; 80053; 80202; 81001; 82040; 82803; 82947; 83605; 83735; 83880; 84100; 84145; 84478; 85014; 85018; 85025; 85027; 85610; 85730; 86140; 86850; 86900; 86901; 86923; 87040; 87070; 87077; 87086; 87147; 87205; 87635; 88305; 88341; 88342; 88360; 92610; 93306; 94002; 94003; 94640; 94799; 97163; C1758; J0330; J0461; J0610; J1940; J2185; J2250; J2270; J2370; J2543; J3010; J3370; J3475; P9016; P9047